=== PATIENT | female | born 1985 | race Caucasian/White ===

== ENCOUNTER 2016-11-03 16:44 | Emergency (ER) | payer OTHER ==
[~2016-11-03] VITALS: Ht 154.9 cm; Wt 97.4 kg
[~2016-11-03 16:44] MED LIST: ALBUAER2 INH
[2016-11-03 16:51] VITALS: TEMP 36.5; Ht 154.9 cm; Wt 97.4 kg
[2016-11-03 16:54] VITALS: O2SAT 99
--- NOTE | 2016-11-03 17:13 | EMERGENCY ROOM VISIT NOTE ---
History First contact with patient: 16:56 Chief Complaint: SORETHROAT Stated Complaint: SWOLLEN GLANDS, HEADACHE, HOT/COLD, EARACHE History of Present Illness The patient is a 31 year old female who presents to the Emergency Room via private vehicle accompanied by male with complaints of "swollen glands, headache , hot/cold, earache". The patient states that 1-1/2 months ago she began with right tonsillar pain radiated into the right anterior neck into the right ear. She states that she was given amoxicillin and told it was her sinuses. She states that she has not had any relief, and is noticed small stones in the right tonsil. She states that they are enlarging. She states that one fell out earlier today and she swallowed it. She notes that there is pain with swallowing and in the right cheek region. She also feels like there is fluid in her right ear. She also notes a headache on the right side. She denies this being the worse headache of her life, chest pain, shortness of breath, abdominal pain. Review of Systems A complete 6-point Review of Systems was discussed with the patient, with pertinent positives and negatives listed in the History of Present Illness. All remaining Review of Systems questions can be considered negative unless otherwise specified. Past Medical/Surgical History Medical Problems: (1) Anxiety (2) Anxiety disorder (3) Asthma (4) ASTHMA, UNSPECIFIED (5) Depression (6) Depressive disorder (7) (8) Previous Tracheostomy Surgical Problems: (1) Cholecystectomy Family History Diabetes mellitus FHx: cancer FHx: heart disease Hypertension Social History Smoking Status: Current Every Day Smoker Alcohol Use: occasionally Drug Use: none Marital Status: single Housing Status: lives with family Occupation Status: unemployed Current/Historical Medications Scheduled Amoxicillin/Clavulanate Potas (Augmentin 400MG/5ML), 10 ML PO BID Bupropion (Wellbutrin Sr), 200 MG PO DAILY Escitalopram Oxalate (Lexapro), 5 MG PO DAILY Prednisolone (Prelone 15MG/5ML), 10 ML PO DIRECTED Topiramate (Topamax), 200 MG PO BID Scheduled PRN Albuterol Hfa (Ventolin Hfa), 1 PUFFS INH QID PRN for Shortness of Breath Tnpnrel-Zqebpwiqmxplc-Ncaibcvq (Excedrin Migraine), 1 TAB PO DIRECTED PRN for Headache Oxycodone/Acetaminophen 5MG/325MG (Percocet 5MG/325MG), 1 TAB PO Q4H PRN for Pain Allergies Coded Allergies: Latex1 -Allergic Contact Dermititis (Verified Allergy, Mild, RASH, 11/03/16) Promethazine (Verified Adverse Reaction, Intermediate, ANXIOUS, IRRITABILITY, 11/03/16) Physical Exam Vital Signs Date Time Temp Pulse Resp B/P Pulse Ox O2 Delivery O2 Flow Rate FiO2 11/03/16 17:28 80 20 122/76 11/03/16 16:54 99 Room Air 11/03/16 16:51 36.5 84 20 120/83 99 Room Air Physical Exam VITAL SIGNS - Vital signs and nursing notes were reviewed. GENERAL -31-year-old female appearing her stated age who is in no acute distress. She is nontoxic in appearance. Upon my entrance she is holding the right side of her jaw/cheek. Communicates well with provider and answers questions appropriately. SKIN - Without rashes. No petechial rashes. HEAD - NC/AT. There is tenderness palpation overlying the right anterior cervical lymph node region/tonsillar region. EYES - Sclera anicteric. Palpebral conjunctiva pink and moist with no injection noted. EARS - No deformities of external structures noted on gross examination bilaterally. There is no erythema of the TMs, but there is fluid within the right eardrum. NOSE - Midline and without cyanosis. No epistaxis or purulent drainage noted. Septum midline without deviation or septal hematoma noted. MOUTH/OROPHARYNX - Without perioral cyanosis. Buccal mucosa pink and moist and without leukoplakia. Tongue midline with equal elevation of palate bilaterally. There is 1+ tonsillar hypertrophy with erythema on the right. Fair dentition noted. NECK - Neck with FROM. Supple to palpation. Anterior cervical lymphadenopathy noted right greater than left. No nuchal rigidity. No meningismus or signs of encephalitis. LUNGS - Chest wall symmetric without accessory muscle use, intercostals retractions, or central cyanosis. Normal vesicular breath sounds CTA B/L. No wheezes, rales, or rhonchi appreciated. CARDIAC - RRR with S1/S2. No murmur, rubs, or gallops appreciated. Medical Decision & Procedures Laboratory Results Test 11/03/16 17:08 Bedside Urine Test NEG (NEG) Medications Administered Medications (Trade) Dose Ordered Sig/Minh Route Start Time Stop Time Status Last Admin Dose Admin Oxycodone/ Acetaminophen (Percocet 5-325mg Tab) 1 tab NOW STAT PO 11/03/16 17:42 11/03/16 17:43 DC 11/03/16 17:48 1 TAB Medical Decision Patient was seen and evaluated as above. It appears that the patient has a serous otitis media of the right with potential eustachian tube dysfunction and tonsillitis. At this time I'll defer rapid strep testing, and treat the patient for pharyngitis, and for the eustachian tube dysfunction/serous otitis media. She will be given Augmentin suspension as well as Orapred. The patient notes that she cannot tolerate pills well. I do be this is appropriate to provide her with a liquid suspension. This was sent to her pharmacy. She asked for a potential decongestant recommendation, therefore I recommended to her Sudafed behind the pharmacy counter. I do believe this is also appropriate. She then noted that the pain was worsening, and requested something for pain. At this point I do believe that one Percocet tablet is reasonable I gave this to the patient as well as a short term supply was sent to her pharmacy until the antibiotics and decongestants can take effect. No red flags were identified in the [place] drug monitoring system. She will be referred to an field research assistant, in which she is to call the number first thing tomorrow morning to schedule follow-up. She is to return with worsening. She was educated upon worrisome symptoms which to return, angina today's findings, had questions prior to discharge, and was discharged home in good condition. In the evaluation and treatment of this patient the following differential diagnoses were entertained: Viral pharyngitis, bacterial pharyngitis, eustachian tube dysfunction, tonsilliths, serous otitis media, among others. There is no evidence of meningitis, encephalitis or life-threatening illness at this time. Impression Primary Impression: Sore throat Additional Impression: Acute serous otitis media of right ear Departure Information Dispostion Home / Self-Care Condition GOOD Prescriptions Oxycodone/Acetaminophen 5MG/325MG (PERCOCET 5MG/325MG) Tab 1 TAB PO Q4H Y for Pain, #5 TAB For Initial Treatment Prov: Eddie Garcia, PAYasmani 11/03/16 Prednisolone (PRELONE 15MG/5ML) 15 Mg/5 Ml Syrp 10 ML PO DIRECTED for 9 Days, #130 ML 10ml BID x 5 days, then 5mL BID x 2 days, then 5ml daily x 2 days. Prov: Eddie Garcia PA-C 11/03/16 Amoxicillin/Clavulanate Potas (AUGMENTIN 400MG/5ML) 400 Mg/5 Ml Susp 10 ML PO BID for 10 Days, #200 ML Prov: Eddie Garcia PA-C 11/03/16 Referrals No Doctor, Assigned (PCP) Brianna Sparrow M.D. Patient Instructions My [facility] Additional Instructions You were seen in the emergency department for your sore throat. You were prescribed Augmentin to be taken Twice daily. This is an antibiotic. All antibiotics have the potential to cause diarrhea. Stop this medication and contact a medical provider if you were to develop any significant adverse side effects including: wheezing, shortness of breath, passing out, vomiting, or a diffuse rash. Always take antibiotics as directed and COMPLETE the ENTIRE course regardless of the improvement of your symptoms. You have been prescribed percocet for temporary relief of pain. This is a narcotic medication making illegal for you to drive or operate machinery with this in her system. Please do not take this with Tylenol. This is to help until the antibiotics take effect. You have been prescribed orapred to help decrease inflammation. Please take as directed. Please take with food. For congestion please go to the pharmacy and request ohyx-quc-qjkozua Sudafed which is actually behind the pharmacist counter. You have been provided the number for an ear nose throat specialist in which she would follow-up for. Dr. Sparrow. Please call their office first thing tomorrow morning. For pain and fever control, you can use the following jhys-vbx-fkqexth medicines (if >12 yo): - Regular strength (325mg/tab) Tylenol (acetaminophen) 2 tabs every 4-6 hours as needed. Do not exceed 12 tablets in a 24 hour period. Avoid taking more than 4 grams (4000 mg) of Tylenol per day. This includes any other sources of acetaminophen you may take on a regular basis. - Regular strength (200 mg/tab) Advil (ibuprofen) 1-2 tabs every 4-6 hours as needed. Do not exceed a dose of 3200 mg per day. - For best results, alternate dosing of Tylenol and Advil. In addition to your prescribed medications, you can also use the following home remedies: - Warm salt-water gargles 3 times per day can soothe your throat and help to fight infection. - Warm tea with honey can soothe your throat. Return to the emergency department if your symptoms persist or worsen over the next 2-3 days despite treatment course outlined above. Return to the emergency department if you develop the following symptoms of: inability to swallow solids , liquids, or drool; excessive wheezing or inability to catch your breath; or intractable fever or pain. Follow up with your primary care provider in 2-3 days from today's emergency department visit. Please return to emergency department with any new/concerning symptoms. Problem Qualifiers
[2016-11-03] MEDS ORDERED: PRLUDL5 PO (17:22)
[2016-11-03] MEDS ORDERED: AGMUDL4005 PO (17:22)
[2016-11-03 17:28] VITALS: BP 122/76; PULSE 80
--- NOTE | 2016-11-03 17:41 | EMERGENCY ROOM VISIT NOTE ---
ED Visit Note First contact with patient: 16:56 The patient was seen and examined with Eddie Garcia PA-C. I agree with the history, physical and findings. Please see the note for disposition and details.
[2016-11-03] MEDS ORDERED: OXYCODONE/ACETAMINOPHEN 5-325 TAB PO STA (17:42)
[2016-11-03] MEDS ORDERED: OXYC-57 PO (17:44)
[2016-11-08] MEDS ORDERED: ASPI-390 PO (13:54)
[2016-11-08] MEDS ORDERED: VNTHFA/IN INH (17:16)
[2016-11-08] MEDS ORDERED: ESCI1TAB6 PO (17:16)
[2016-11-08] MEDS ORDERED: TOPI200T14 PO (17:16)
[2016-11-08] MEDS ORDERED: BUPR200T2 PO (17:16)
[2016-12-08] MEDS ORDERED: ESCI1TAB6 PO (13:03)
[2016-12-08] MEDS ORDERED: BUPR200T2 PO (13:03)
[2016-12-08] MEDS ORDERED: TOPI100T20 PO (13:03)
[2016-12-09] MEDS ORDERED: AMOX250C PO (10:50)
[2016-12-09] MEDS ORDERED: OXYC-57 PO (13:23)
== END 2016-11-03 17:51 | disposition home or self-care (01) ==
LOC: C.EDB 16:45 → C.EDD 17:51
DX: J02.9 Acute pharyngitis, unspecified (principal); H65.01 Acute serous otitis media, right ear; R51 Headache; R59.0 Localized enlarged lymph nodes; F17.210 Nicotine dependence, cigarettes, uncomplicated

== ENCOUNTER 2016-11-08 19:17 | Emergency (ER) | payer OTHER ==
[~2016-11-08] VITALS: Ht 154.9 cm; Wt 96.0 kg
[~2016-11-08 19:17] MED LIST changes: +AGMUDL4005 PO; -ALBUAER2 INH; +ASPI-390 PO; +BUPR200T2 PO; +ESCI1TAB6 PO; +OXYC-57 PO; +PRLUDL5 PO; +TOPI200T14 PO; +VNTHFA/IN INH
[2016-11-08 19:24] VITALS: TEMP 36.4; Ht 154.9 cm; Wt 96.0 kg
[2016-11-08] MEDS ORDERED: OXYCODONE HCL IR 5 MG TAB (IMMEDIATE RELEASE) PO STA (19:39)
--- NOTE | 2016-11-08 20:05 | DIAGNOSTIC IMAGING REPORT ---
KNEE 1 OR 2 VIEWS ROUTINE CLINICAL HISTORY: L knee pain s/p patellar subluxation pain COMPARISON: None. DISCUSSION: The bones and joint spaces appear intact. There is no evidence of fracture, dislocation or bony disease. There is no evidence for soft tissue swelling. IMPRESSION: Negative study. Electronically signed by: Van Jonas M.D. 11/08/2016 8:03 PM Dictated Date/Time: 11/08/2016 8:03 PM
[2016-11-08] MEDS ORDERED: OXYC1TAB3 PO (20:36)
--- NOTE | 2016-11-08 20:39 | EMERGENCY ROOM VISIT NOTE ---
History First contact with patient: 19:32 Chief Complaint: KNEEPAIN Stated Complaint: LEFT KNEE INJURY History of Present Illness The patient is a 31 year old female who presents to the Emergency Room with complaints of left knee pain over the past 3 days. The patient reports that her knee initially popped while she and her were having sex. The patient reports that the following day, she was chasing her children up the steps and it popped again. It popped again today while walking. She was seen at an urgent care center this evening, and was told that it could be a meniscus tear or anterior cruciate ligament injury. She was provided a knee brace that the patient reports does not fit. She complains of a burning sensation on the front of the knee. The patient reports that she did dislocate her patella several years ago while wrestling with her ex-. She currently rates her discomfort a 6 out of 10. Her pain is worsened when walking up and down steps or bending her knee. She denies any instability, clicking or locking with ambulation. Review of Systems 10 system review was performed and was negative except for pertinent positives and negatives as indicated in history of present illness Past Medical/Surgical History Medical Problems: (1) Anxiety (2) Anxiety disorder (3) Asthma (4) ASTHMA, UNSPECIFIED (5) Depression (6) Depressive disorder (7) (8) Previous Tracheostomy Surgical Problems: (1) Cholecystectomy Family History Diabetes mellitus FHx: cancer FHx: heart disease Hypertension Social History Smoking Status: Current Every Day Smoker Alcohol Use: occasionally Drug Use: none Marital Status: single Housing Status: lives with family Occupation Status: unemployed Current/Historical Medications Scheduled Amoxicillin/Clavulanate Potas (Augmentin 400MG/5ML), 10 ML PO BID Bupropion (Wellbutrin Sr), 200 MG PO DAILY Escitalopram Oxalate (Lexapro), 5 MG PO DAILY Prednisolone (Prelone 15MG/5ML), 10 ML PO DIRECTED Topiramate (Topamax), 200 MG PO BID Scheduled PRN Albuterol Hfa (Ventolin Hfa), 2 PUFFS INH QID PRN for Shortness of Breath Udtsfab-Rksowtqwwbofa-Qnzzkspy (Excedrin Migraine), 1 TAB PO UD PRN for Migraine Oxycodone Ir (Roxicodone Ir), 1-2 TAB PO Q4H PRN for Pain Allergies Coded Allergies: Latex1 -Allergic Contact Dermititis (Verified Allergy, Mild, RASH, 11/03/16) Promethazine (Verified Adverse Reaction, Intermediate, ANXIOUS, IRRITABILITY, 11/03/16) Physical Exam Vital Signs Date Time Temp Pulse Resp B/P Pulse Ox O2 Delivery O2 Flow Rate FiO2 11/08/16 19:24 36.4 85 18 133/84 94 Room Air Physical Exam CONSTITUTIONAL: Healthy and well nourished. Alert and oriented X 3 with positive affect. She does not appear in any acute distress. HEENT: Normocephalic, atraumatic. Pupils equal, round and reactive. NECK: Full active range of motion without discomfort. RESPIRATORY: Clear to auscultation bilaterally with no wheezing, crackles, rhonchi or stridor. CARDIOVASCULAR: Regular rate and rhythm with no murmurs, rubs or gallops. MUSCULOSKELETAL: Examination of the left knee shows anterior edema without any bogginess of the pre-patella bursa. She has tenderness to palpation about the entire patella. No focal tenderness to the quadriceps or patellar tendons. The patient is able straight leg raise. She has mild discomfort to the radial joint line. Collateral ligaments are intact. The patient refuses to flex and extend the knee because of discomfort. She has mild tenderness to the hamstrings. No popliteal masses or tenderness to palpation through the gastrocnemius. Pedal pulses are intact. INTEGUMENTARY: No rash or other significant dermatologic conditions noted. NEUROLOGIC: Left lower extremity is sensory intact. Medical Decision & Procedures ER Provider Diagnostic Interpretation: My interpretation of left knee x-rays does not show any acute fractures, dislocations, subluxations or joint effusion. Radiologist report is as follows: KNEE 1 OR 2 VIEWS ROUTINE CLINICAL HISTORY: L knee pain s/p patellar subluxation pain COMPARISON: None. DISCUSSION: The bones and joint spaces appear intact. There is no evidence of fracture, dislocation or bony disease. There is no evidence for soft tissue swelling. IMPRESSION: Negative study. Medications Administered Medications (Trade) Dose Ordered Sig/Minh Route Start Time Stop Time Status Last Admin Dose Admin Oxycodone HCl (Roxicodone Immediate Rel Tab) 5 mg NOW STAT PO 11/08/16 19:39 11/08/16 19:41 DC 11/08/16 19:44 5 MG ED Course Patient history and physical exam were performed. Nurse's notes were reviewed. Vital signs were reviewed and normal. The patient was administered OxyIR 5 mg for pain. Denies pack was also applied. X-rays of the left knee were normal. Any immobilizer and crutches were applied. The patient was encouraged to continue intermittently apply ice to the knee. Ibuprofen and Tylenol in alternating fashion for baseline pain relief. The patient received a home pack and prescription for OxyIR as needed for breakthrough pain. No drinking or driving while taking OxyIR. The patient was encouraged to follow-up with [facility] for reevaluation and management. The patient voiced understanding of all discharge instructions, was happy with plan of care, and rated her pain a 7 out of 10 at the conclusion of my exam. Medical Decision Impression Primary Impression: Left anterior knee pain Departure Information Prescriptions Oxycodone Ir (Roxicodone Ir) 5 Mg Tab 1-2 TAB PO Q4H Y for Pain, #15 TAB For Initial Treatment Prov: Mukesh Villar PA 11/08/16 Referrals No Doctor, Assigned (PCP) Patient Instructions [facility]
[2016-11-08] MEDS ORDERED: OXYCODONE IR HOME PACK PO ONE (20:45)
[2016-11-08 21:07] VITALS: BP 129/82; PULSE 82; O2SAT 97
[2016-12-08] MEDS ORDERED: TOPI100T20 PO (13:03)
[2016-12-08] MEDS ORDERED: ESCI1TAB6 PO (13:03)
[2016-12-08] MEDS ORDERED: BUPR200T2 PO (13:03)
[2016-12-09] MEDS ORDERED: AMOX250C PO (10:50)
[2016-12-09] MEDS ORDERED: OXYC-57 PO (13:23)
== END 2016-11-08 21:09 | disposition home or self-care (01) ==
LOC: C.EDB 19:18 → C.EDD 21:09
DX: M25.562 Pain in left knee (principal); J45.909 Unspecified asthma, uncomplicated; F41.8 Other specified anxiety disorders; Z83.3 Family history of diabetes mellitus; Z82.49 Family history of ischemic heart disease and other diseases of the circulatory system; F17.200 Nicotine dependence, unspecified, uncomplicated

== ENCOUNTER 2016-11-29 20:46 | Emergency (ER) | payer OTHER ==
[~2016-11-29] VITALS: Ht 154.9 cm; Wt 96.6 kg
[~2016-11-29 20:46] MED LIST changes: -AGMUDL4005 PO; -OXYC-57 PO; +OXYC1TAB3 PO; -PRLUDL5 PO
[2016-11-29 21:15] VITALS: TEMP 37.2; Ht 154.9 cm; Wt 96.6 kg
--- NOTE | 2016-11-29 22:47 | EMERGENCY ROOM VISIT NOTE ---
ED Visit Note First contact with patient: 21:55 31-year-old female with pain behind her left ear was fully evaluated by Eddie Garcia PA-C. Please see his note. I also independently evaluated the patient. CT imaging was obtained. IMPRESSION: Sinusitis
[2016-11-29] MEDS ORDERED: OXYCODONE/ACETAMINOPHEN 5-325 TAB PO STA (23:01)
--- NOTE | 2016-11-29 23:07 | DIAGNOSTIC IMAGING REPORT ---
CT SCAN OF THE TEMPORAL BONES WITHOUT IV CONTRAST CLINICAL HISTORY: Left mastoid pain. COMPARISON STUDY: CT scan of the brain dated 04/17/2016. CT scan of the paranasal sinuses dated 03/12/2010. TECHNIQUE: High-resolution CT scan of the temporal bones is performed. Images reviewed in the axial, sagittal, coronal planes. IV contrast was not administered for this examination. CT DOSE: 579.75 mGy.cm FINDINGS: The skeletal structures are well mineralized. There is no evidence of temporal bone fracture. The mastoid air cells are well pneumatized. There is no evidence of dehiscence of the tegmen tympany. The scutum is sharp bilaterally. The middle ear structures are within normal limits. There is no evidence of otosclerosis. The ossicles are within normal limits. There is no evidence of cholesteatoma. The external auditory canals are clear. There is moderate to severe pansinusitis. The bony orbits are intact as visualized. The calvarium appears intact. Imaged brain parenchyma at the skull base is within normal limits. There are prominent intraparotid lymph nodes identified on the left. IMPRESSION: 1. Unremarkable CT scan of the temporal bones. 2. The mastoid air cells are clear. 3. Pansinusitis. 4. Prominent left intraparotid lymph nodes may be on a reactive basis. Clinical correlation will be required. Electronically signed by: Justin Finley M.D. 11/29/2016 11:06 PM Dictated Date/Time: 11/29/2016 10:40 PM
[2016-11-29] MEDS ORDERED: AMOXICIL/CLAVU 875MG HOME PACK PO STA (23:31)
[2016-11-29] MEDS ORDERED: PERCOCET HOME PACK PO STA (23:31)
[2016-11-29] MEDS ORDERED: AMOX875T PO (23:44)
[2016-11-29] MEDS ORDERED: OXYC-57 PO (23:44)
--- NOTE | 2016-11-29 23:46 | EMERGENCY ROOM VISIT NOTE ---
History First contact with patient: 21:55 Chief Complaint: SINUS CONGESTION/PRESSURE Stated Complaint: LEFT PAIN BEHIND EAR, FEVERISH, SINUS DRAINAGE Nursing Triage Summary: pt states left eustacion tube is painful History of Present Illness The patient is a 31 year old female who presents to the Emergency Room via private vehicle with complaints of "left pain behind the ear, fevers, sinus drainage". The patient states that 2 days ago she began to notice what felt like a bubble behind the left ear, and radiated downwards into her left neck. She notes pain in this region, particularly over the mastoid. She states that she presses this region she can feel mucus draining down and were sinuses and throat. She rates the left mastoid pain as a 10/10. There is associated sinus congestion. She states she feels as though she has a head cold. She denies any chills, chest pain, shortness of breath. She states she feels fevers. She notes that she was seen here approximately 1 month ago and had taken amoxicillin and had done well but her symptoms are returning. She is an appointment tomorrow with an ENT specialist. Review of Systems A complete 10-point Review of Systems was discussed with the patient, with pertinent positives and negatives listed in the History of Present Illness. All remaining Review of Systems questions can be considered negative unless otherwise specified. Past Medical/Surgical History Medical Problems: (1) Anxiety (2) Anxiety disorder (3) Asthma (4) ASTHMA, UNSPECIFIED (5) Depression (6) Depressive disorder (7) (8) Previous Tracheostomy Surgical Problems: (1) Cholecystectomy Family History Diabetes mellitus FHx: cancer FHx: heart disease Hypertension Social History Smoking Status: Current Every Day Smoker Alcohol Use: occasionally Drug Use: none Marital Status: single Housing Status: lives with family Occupation Status: unemployed Current/Historical Medications Scheduled Amoxicillin & Pot Clavulanate (Augmentin 875-125 mg), 1 TAB PO BID Bupropion (Wellbutrin Sr), 200 MG PO DAILY Escitalopram Oxalate (Lexapro), 5 MG PO DAILY Topiramate (Topamax), 200 MG PO BID Scheduled PRN Albuterol Hfa (Ventolin Hfa), 2 PUFFS INH QID PRN for Shortness of Breath Rikudiu-Bwvxjemvilbrt-Yajdeimv (Excedrin Migraine), 1 TAB PO UD PRN for Migraine Oxycodone Ir (Roxicodone Ir), 1-2 TAB PO Q4H PRN for Pain Oxycodone/Acetaminophen 5MG/325MG (Percocet 5MG/325MG), 1-2 TABS PO Q6 PRN for Pain Allergies Coded Allergies: Latex1 -Allergic Contact Dermititis (Verified Allergy, Mild, RASH, 11/03/16) Promethazine (Verified Adverse Reaction, Intermediate, ANXIOUS, IRRITABILITY, 11/03/16) Physical Exam Vital Signs Date Time Temp Pulse Resp B/P Pulse Ox O2 Delivery O2 Flow Rate FiO2 11/30/16 00:19 82 20 133/81 99 Room Air 11/29/16 21:15 37.2 96 18 156/96 97 Room Air Physical Exam VITAL SIGNS - Vital signs and nursing notes were reviewed. Patient is afebrile , hypertensive at 156/96, non-tachycardic and is saturating well on room air 97% . GENERAL -31-year-old female appearing her stated age who is in no acute distress. Communicates well with provider and answers questions appropriately. SKIN - Without rashes. No petechial rashes. HEAD - NC/AT. No evidence of trauma. EYES - PERRL with EOMI bilaterally. Sclera anicteric. Palpebral conjunctiva pink and moist with no injection noted. EARS - No deformities of external structures noted on gross examination bilaterally. No pain elicited with palpation of the tragus bilaterally. External auditory canals without discharge or otorrhea. There is tenderness to palpation overlying the left mastoid. Tympanic membranes pearly dotson with retraction of the left serous fluid behind. Handle of malleus, umbo, cone of light, pars tensa/flaccid all easily visualized. NOSE - Midline and without cyanosis. No epistaxis or purulent drainage noted. Septum midline without deviation or septal hematoma noted. MOUTH/OROPHARYNX - Without perioral cyanosis. Buccal mucosa pink and moist and without leukoplakia. Tongue midline with equal elevation of palate bilaterally. No tonsillar hypertrophy, erythema, or exudates noted. There dentition noted. NECK - Neck with FROM. Supple to palpation. There is left parotid region lymphadenopathy noted. No nuchal rigidity. No evidence of meningitis. LUNGS - Chest wall symmetric without accessory muscle use, intercostals retractions, or central cyanosis. Normal vesicular breath sounds CTA B/L. No wheezes, rales, or rhonchi appreciated. CARDIAC - RRR with S1/S2. No murmur, rubs, or gallops appreciated. Medical Decision & Procedures ER Provider Diagnostic Interpretation: CT SCAN OF THE TEMPORAL BONES WITHOUT IV CONTRAST CLINICAL HISTORY: Left mastoid pain. COMPARISON STUDY: CT scan of the brain dated 04/17/2016. CT scan of the paranasal sinuses dated 03/12/2010. TECHNIQUE: High-resolution CT scan of the temporal bones is performed. Images reviewed in the axial, sagittal, coronal planes. IV contrast was not administered for this examination. CT DOSE: 579.75 mGy.cm FINDINGS: The skeletal structures are well mineralized. There is no evidence of temporal bone fracture. The mastoid air cells are well pneumatized. There is no evidence of dehiscence of the tegmen tympany. The scutum is sharp bilaterally. The middle ear structures are within normal limits. There is no evidence of otosclerosis. The ossicles are within normal limits. There is no evidence of cholesteatoma. The external auditory canals are clear. There is moderate to severe pansinusitis. The bony orbits are intact as visualized. The calvarium appears intact. Imaged brain parenchyma at the skull base is within normal limits. There are prominent intraparotid lymph nodes identified on the left. IMPRESSION: 1. Unremarkable CT scan of the temporal bones. 2. The mastoid air cells are clear. 3. Pansinusitis. 4. Prominent left intraparotid lymph nodes may be on a reactive basis. Clinical correlation will be required. Electronically signed by: Justin Finley M.D. 11/29/2016 11:06 PM Dictated Date/Time: 11/29/2016 10:40 PM Laboratory Results Test 11/29/16 22:25 Medications Administered Medications (Trade) Dose Ordered Sig/Minh Route Start Time Stop Time Status Last Admin Dose Admin Oxycodone/ Acetaminophen (Percocet 5-325mg Tab) 1 tab NOW STAT PO 11/29/16 23:01 11/29/16 23:03 DC 11/29/16 23:33 1 TAB Oxycodone/ Acetaminophen (Percocet 5/ 325MG Home Pack) 1 homepack UD STAT PO 11/29/16 23:31 11/29/16 23:33 DC 11/30/16 00:18 1 HOMEPACK Amoxicillin/ Clavulanate Potassium (Augmentin 875MG Home Pack) 1 [facility] UD STAT PO 11/29/16 23:31 11/29/16 23:33 DC 11/30/16 00:18 1 [facility] Medical Decision Patient was seen and evaluated as above. After obtaining a thorough history and physical examination was apparent the patient was experiencing significant left mastoid pain. I personally treated this patient on a previous visit for similar symptoms. She appears to be experiencing chronic sinus related ailments. She is to follow-up with Dr. Sparrow tomorrow, ENT surgeon. She states she is here because of the pain. CT scan was obtained, but first a urine screen was obtained. This was found any negative. CT scan was obtained of the mastoids. No evidence of mastoiditis. There is a small lymph node enlargement of the left parotid. This is palpable on exam. I do not suspect mumps. I suspect this is likely secondary to her ear pain and sinusitis. There is pansinusitis noted. She'll be treated with Augmentin oral tablets at this time, and is to follow up with an ear nose and throat doctor. She will did request something for her pain therefore was given 1 Percocet tablet. This did help with the pain. She was then provided a short-term prescription for this medication and is to follow-up for definitive management with the ear nose and throat doctor tomorrow. I do not suspect any emergent cause of her pain at this time. She was educated upon worrisome symptoms which to return, had questions prior to discharge and was discharged home in good condition. Prior to discharge she was also evaluated by my attending. It is important note the patient presents tearful, stating that she drooled symptoms she is experiencing and is fearful she may have cancer. She states that she does have a history of anxiety, and smokes. I reassured her that although I cannot 100% tell her she does not have cancer, I informed her that at this time it is very unlikely based upon her symptoms that she has cancer. Patient is a follow-up with her family doctor regarding the enlarged lymph node in case it may persist. In evaluation treatment this patient the following differential diagnoses were entertained: Sinusitis, mastoiditis, otitis media, mumps, among others. [place] Drug Monitoring Program Search Results: patient reviewed within database, no issues identified Impression Primary Impression: Acute recurrent sinusitis Departure Information Dispostion Home / Self-Care Condition GOOD Prescriptions Oxycodone/Acetaminophen 5MG/325MG (PERCOCET 5MG/325MG) Tab 1-2 TABS PO Q6 Y for Pain, #10 TAB For Initial Treatment Prov: Eddie Garcia PA-C 11/29/16 Amoxicillin & Pot Clavulanate (Augmentin 875-125 mg) 1 Tab Tab 1 TAB PO BID for 9 Days, #18 TAB Prov: Eddie Garcia PA-C 11/29/16 Referrals No Doctor, Assigned (PCP) Brianna Sparrow M.D. Patient Instructions My [facility] Additional Instructions You've been seen in the emergency department for your left ear/mastoid pain. CT scan does not reveal mastoiditis. CT scan does show a left parotid lymph node enlargement as well as sinusitis. You've been prescribed Augmentin, this is one tablet twice daily for 10 days. You also prescribe Percocet for your left ear/mastoid pain. This is a narcotic medication making illegal for you to drive or operate machinery. Do not take the Percocet with Tylenol. You may take ibuprofen according to the package insert. Please keep your appointment with the EAR NOSE THROAT doctor tomorrow. Please return to the emergency department with any new/concerning symptoms.
[2016-11-30 00:19] VITALS: BP 133/81; PULSE 82; O2SAT 99
[2016-12-08] MEDS ORDERED: TOPI100T20 PO (13:03)
[2016-12-08] MEDS ORDERED: ESCI1TAB6 PO (13:03)
[2016-12-08] MEDS ORDERED: BUPR200T2 PO (13:03)
[2016-12-09] MEDS ORDERED: AMOX250C PO (10:50)
[2016-12-09] MEDS ORDERED: OXYC-57 PO (13:23)
== END 2016-11-30 00:23 | disposition home or self-care (01) ==
LOC: C.EDB 20:48 → C.EDD 11-30 00:23
DX: J01.91 Acute recurrent sinusitis, unspecified (principal); F41.9 Anxiety disorder, unspecified; F32.9 Major depressive disorder, single episode, unspecified; J45.909 Unspecified asthma, uncomplicated; Z79.899 Other long term (current) drug therapy; Z82.49 Family history of ischemic heart disease and other diseases of the circulatory system; Z83.3 Family history of diabetes mellitus; F17.200 Nicotine dependence, unspecified, uncomplicated

== ENCOUNTER → 2016-12-09 | Day surgery (SDC) | payer OTHER ==
--- NOTE | 2016-12-08 09:59 | History and Physical: Surg Cnt ---
History & Physical Date December 08, 2016. Chief Complaint sinus infections History of Present Illness The patient is a 31 year old female with complaints of chronic sinusitis since at least 2009, failed medical Rx by her FMD, aggravating asthma Past Medical/Surgical History Medical Problems: (1) Anxiety (2) Anxiety disorder (3) Asthma (4) ASTHMA, UNSPECIFIED (5) Depression (6) Depressive disorder (7) (8) Previous Tracheostomy Surgical Problems: (1) Cholecystectomy Additional History Hepatic Disease: No Endocrine Disorder: No Kidney Disease: No Hypertension: No Heart Disease: No Bleeding Tendencies: No Infectious Diseases: No Other: asthma Allergies Coded Allergies: Latex1 -Allergic Contact Dermititis (Verified Allergy, Mild, RASH, 11/03/16) Promethazine (Verified Adverse Reaction, Intermediate, ANXIOUS, IRRITABILITY, 11/03/16) Home Medications Scheduled Amoxicillin & Pot Clavulanate (Augmentin 875-125 mg), 1 TAB PO BID Bupropion (Wellbutrin Sr), 200 MG PO DAILY Escitalopram Oxalate (Lexapro), 5 MG PO DAILY Topiramate (Topamax), 200 MG PO BID Scheduled PRN Albuterol Hfa (Ventolin Hfa), 2 PUFFS INH QID PRN for Shortness of Breath Knxipqx-Lgmuevamuyrxm-Eertkdmd (Excedrin Migraine), 1 TAB PO UD PRN for Migraine Oxycodone Ir (Roxicodone Ir), 1-2 TAB PO Q4H PRN for Pain Oxycodone/Acetaminophen 5MG/325MG (Percocet 5MG/325MG), 1-2 TABS PO Q6 PRN for Pain Physical Examination Skin: warm/dry, no rash Eyes: normal inspection, EOMI, sclerae normal Head: normocephalic, atraumatic Neck: supple, no adenopathy, trachea midline Respiratory/Chest: lungs clear, normal breath sounds, no respiratory distress Cardiovascular: regular rate, rhythm, no edema, no murmur Abdomen / GI: normal bowel sounds, non tender Back: normal inspection Extremities: normal inspection, normal range of motion Neurologic/Psych: no motor/sensory deficits, alert, normal reflexes, oriented x 3 Diagnosis chronic sinusitis Plan of Treatment endoscopic sinus surgery
[2016-12-08 13:03] VITALS: Ht 154.9 cm; Wt 97.7 kg
[~2016-12-09] VITALS: Ht 154.9 cm; Wt 97.7 kg
[~2016-12-09] MED LIST changes: +AMOX250C PO; +AMOX875T PO; -ASPI-390 PO; +ATROPINE SULFATE 0.1 MG/ML 5ML SYR IV PRN; +BACITRACIN OINT 15 GM TUBE ONE; +CEFAZOLIN 2000 MG/60 ML D5W IV SCH; +DEXAMETHASONE SOD INJ 4 MG/ML VIAL ONE; +EpHEDrine SULFATE 50MG/5ML SYR ONE; +EpHEDrine SULFATE INJ 50 MG/ML AMP IV PRN; +EpINEphrine INJ 1MG/ML AMP 1 MG/ML AMP ONE; +FENTANYL CITRATE INJ 50 MCG/1 ML 2 ML VIAL IV PRN; +FENTANYL CITRATE INJ 50 MCG/1 ML 2 ML VIAL ONE; +FLUMAZENIL 0.1 MG/1 ML 10 ML VIAL IV PRN; +HYDR1CAP85 PO; +HYDROmorphone INJ 2 MG/ML SYR/VIAL IV PRN; +IBUP-1050 PO; +LABETALOL HCL IV 5 MG/ML 20ML IV PRN; +LACTATED RINGER'S 1000ML 1,000 ML IV SCH; +LIDO 2%/EPINEPHRINE 1:100000 20 ML VIAL INFIL ONE; +LIDOCAINE 4% MPF SOAK 5 ML = 1 DOSE TOP ONE; +LIDOCAINE HCL 2% 2 ML VIAL (20MG/ML) ONE; +LORA-741 PO; +MEPERIDINE HCL 25 MG/ML CARP IV PRN; +MIDAZOLAM HCL 1 MG/ML 2ML VIAL ONE; +NALOXONE HCL 0.4 MG/1 ML VIAL/CARP IV PRN; +NITR1CAP16 PO; +NYSTCRE32 TOP; +OMEP40CA41 PO; +ONDA4TAB10 SL; +ONDANSETRON INJ 2 MG/ML 2 ML VIAL IV PRN; +ONDANSETRON INJ 2 MG/ML 2 ML VIAL ONE; +OXYC-57 PO; -OXYC1TAB3 PO; +OXYCODONE/ACETAMINOPHEN 5-325 TAB PO PRN; +OXYMETAZOLINE HCL 0.05% NA SPR 15 ML BTL SCH; +PHENYLEPHRINE 100MCG/ML 5ML SYR IV PRN; +PROMETHAZINE HCL INJ 12.5 MG in SODIUM CHLORIDE 0.9% 50ML 50 ML IV STA; +PROMETHAZINE HCL INJ 25 MG/ML 1 ML VIAL ONE; +PROPOFOL IV EMULSION 10 MG/ML 20 ML VIAL IV ONE; +SCOPOLAMINE 1.5 MG TDSY TD ONE; +SODIUM CHLORIDE 0.9% 1000ML 1,000 ML IV SCH; +TOPI100T20 PO; -TOPI200T14 PO
--- NOTE | 2016-12-09 13:25 | Discharge Instructions-SurgCtr ---
Discharge Instructions Date of Service December 09, 2016. Visit Reason for Visit: Chronic Sinusitis Discharge Discharge Diagnosis / Problem: same Discharge Goals Goal(s): Improve disease control Activity Recommendations Activity Limitations: resume your previous activity Anesthesia . Post Anesthesia Instructions: If you have had General Anesthesia or IV Sedation: * Do not drive today. * Resume driving when surgeon permits. * Do not make important decisions or sign legal documents today. * Call surgeon for: 1. Temperature elevations greater than 101 degrees F. 2. Uncontrollable pain. 3. Excessive bleeding. 4. Persistent nausea and vomiting. 5. Medication intolerance (nausea, vomiting or rash). * For nausea and vomiting use only clear liquids such as: tea, soda, bouillon until nausea subsides, then gradually increase diet as tolerated. * If you have any concerns or questions, call your surgeon's office. If physician is unavailable and it is an emergency, call 911 or go to the nearest emergency room. . Instructions / Follow-Up Instructions / Follow-Up ACTIVITY RECOMMENDATIONS: * Being up and around is good, but no strenuous activity, heavy lifting or physical exertion for one week. * Keep your head elevated 30 degrees when lying down or sleeping. * Do not blow your nose for 48 hours, sniff back instead. * Avoid hot showers. OVER THE COUNTER MEDICATIONS: * You may use Tylenol * Avoid aspirin or aspirin containing products, e.g. as they may increase bleeding. SPECIAL CARE INSTRUCTIONS: * Expect to have bloody drainage from your nose and/or down your throat for one to three days. Change drip pad as needed. * Begin irrigating your nose with saline solution today, at least six to ten times per day and sniff back to help remove old clots or crust. * You may experience nasal and facial congestion, pain and pressure, this is normal. * Please call with any significant and/or progressive pain, redness, swelling around the eyes, visual changes, fever of 101.5 degrees F, active bleeding or any problems or concerns. * If active bleeding occurs, spray the nose three times at one minute intervals with Afrin spray and call or cell phone: . If unable to reach the doctor, go to the nearest Emergency Department. Special Diet: * Avoid extremely hot fluids. FOLLOW UP VISIT: Follow-up Visit with Dr. Sparrow If not already scheduled, please call to schedule. Diet Recommendations Home Diet: no limitations Procedures Procedures Performed: Endoscopic Sinus Surgery, Right & Left Frontal Sinus, Right & Left Sphenoid Sinus, Right & Left Maxillary Sinus, Right & Left Total Ethmoidectomies Pending Studies Studies pending at discharge: no Medical Emergencies . Who to Call and When: Medical Emergencies: If at any time you feel your situation is an emergency, please call 911 immediately. . Non-Emergent Contact Non-Emergency issues call your: Primary Care Provider . . "Provider Documentation" section prepared by Brianna Sparrow. . [place] Drug Monitoring [place] Search Results: no issues identified
[2016-12-09 14:14] VITALS: TEMP 36.6
--- NOTE | 2016-12-09 14:32 | Anesthesia Progress Nt - [facility] ---
Anesthesia Post Op Note Date & Time December 09, 2016 at 14:30 Vital Signs Pain Intensity: 2 Vital Signs Past 12 Hours Date Time Temp Pulse Resp B/P Pulse Ox O2 Delivery O2 Flow Rate FiO2 12/09/16 14:14 36.6 72 16 136/82 98 Room Air 12/09/16 14:04 69 9 97 12/09/16 14:04 70 9 12/09/16 14:00 124/87 12/09/16 14:00 37.0 70 20 124/87 97 Room Air 12/09/16 13:59 73 13 12/09/16 13:59 77 13 98 12/09/16 13:58 74 13 97 12/09/16 13:58 75 13 12/09/16 13:57 70 14 98 12/09/16 13:57 69 14 12/09/16 13:55 133/81 12/09/16 13:52 74 5 12/09/16 13:52 74 5 98 12/09/16 13:51 72 10 12/09/16 13:51 72 10 98 12/09/16 13:50 126/88 12/09/16 13:49 79 12 12/09/16 13:49 73 12 99 12/09/16 13:48 79 15 100 12/09/16 13:48 80 15 12/09/16 13:45 137/98 12/09/16 13:43 78 14 12/09/16 13:43 78 14 100 12/09/16 13:40 122/91 12/09/16 13:38 85 9 12/09/16 13:38 85 9 100 12/09/16 13:35 154/82 12/09/16 13:33 93 10 12/09/16 13:33 92 10 100 12/09/16 13:30 137/96 12/09/16 13:28 91 11 100 12/09/16 13:28 91 11 12/09/16 13:25 144/88 12/09/16 13:23 91 17 100 12/09/16 13:23 91 17 12/09/16 13:22 96 18 100 12/09/16 13:22 96 18 12/09/16 13:20 130/93 12/09/16 13:20 36.6 94 16 147/97 100 Mask 8 12/09/16 13:17 101 12/09/16 13:17 101 147/97 99 12/09/16 10:51 36.7 77 16 115/77 95 Room Air Notes Mental Status: alert / awake / arousable, participated in evaluation Pt Amnestic to Procedure: Yes Nausea / Vomiting: adequately controlled, improving with treatment Pain: adequately controlled Airway Patency, RR, SpO2: stable & adequate BP & HR: stable & adequate Hydration State: stable & adequate Anesthetic Complications: no major complications apparent The patient was given a scopolamine patch, Decadron, Zofran in the OR. She was given Phenergan (she does not have an allergy) and Zofran in the PACU.
[2016-12-09 14:40] VITALS: BP 118/81; PULSE 69; O2SAT 99
--- NOTE | 2016-12-09 15:31 | OPERATIVE REPORT ---
DATE OF OPERATION: 12/09/2016 PREOPERATIVE DIAGNOSIS: Chronic sinusitis, polyposis. POSTOPERATIVE DIAGNOSIS: Same. PROCEDURE: Right and left frontal, right and left sphenoid, right and left total ethmoid and right and left maxillary sinus antrostomies. SURGEON: Dr. Sparrow. ANESTHESIA: General LMA. COMPLICATIONS: None. BLOOD LOSS: 75 mL. HISTORY OF PRESENT ILLNESS: This 31-year-old lady presented with recurrent chronic sinusitis followed since at least 2009 with persistent pansinusitis on CT scan since 2009. OPERATION AND FINDINGS: PROCEDURE: The patient was brought to the operating room and placed in supine position. General anesthesia was induced using LMA, prepped, draped in usual sterile manner. Nose decongested using cottonoids with topical solution of 4 mL of 4% Xylocaine mixed with 1 mL of epinephrine. Injection 2% Xylocaine 1:1,000 strength epinephrine was also used. Syntervention device calibrated and used for the entire procedure. The right sphenoid cannulated with guidewire and dilated using the 6 mm balloon with [employer] computer guidance, the left sphenoid was also dilated same manner. The right maxillary sinus cannulated with guidewire and dilated using the 6 mm balloon as was the left maxillary sinus. The left nasofrontal duct was cannulated with guidewire, dilated using the 6 mm balloon with [employer] computer guidance. A guidewire was left in place as a marker. Frontal sinusotomy was performed by removing the anterior wall, then the posterior wall of the agger nasi cell with the shaver coupled with the [employer] device. At this point, total ethmoidectomy was performed opening up the bullae ethmoidalis going through the ground lamella into the posterior ethmoid air cells, delineating the skull base and lamina papyracea and following these structures anteriorly exonerating all the posterior and all the anterior ethmoid air cells along with significant amount of polyps and polypoid mucosa. Maxillary sinus was opened by removing the posterior polypoid border at the anterior wall of the bullae ethmoidalis. The sphenoid was opened by removing polypoid tissue at the inferior border of the superior turbinate at the anterior face of the sphenoid. The right frontal sinusotomy, sphenoidotomy, total ethmoidectomy, and maxillary sinus antrostomy performed in similar manner. Propel stents were placed. The patient tolerated the procedure well and was taken to recovery area in satisfactory condition. I attest to the content of the Intraoperative Record and any orders documented therein. Any exceptio ns are noted below.
== END | disposition home or self-care (01) ==
LOC: X.SURG 10:29
PROVIDERS: ATTEND Otolaryngology
DX: J32.9 Chronic sinusitis, unspecified (principal); J33.8 Other polyp of sinus; F41.9 Anxiety disorder, unspecified; J45.909 Unspecified asthma, uncomplicated; F32.9 Major depressive disorder, single episode, unspecified; Z79.899 Other long term (current) drug therapy

== ENCOUNTER 2017-01-29 14:04 | Emergency (ER) | payer OTHER ==
[~2017-01-29] VITALS: Ht 154.9 cm; Wt 93.0 kg
[~2017-01-29 14:04] MED LIST changes: -AMOX875T PO; -ATROPINE SULFATE 0.1 MG/ML 5ML SYR IV PRN; -BACITRACIN OINT 15 GM TUBE ONE; -CEFAZOLIN 2000 MG/60 ML D5W IV SCH; -DEXAMETHASONE SOD INJ 4 MG/ML VIAL ONE; -EpHEDrine SULFATE 50MG/5ML SYR ONE; -EpHEDrine SULFATE INJ 50 MG/ML AMP IV PRN; -EpINEphrine INJ 1MG/ML AMP 1 MG/ML AMP ONE; -FENTANYL CITRATE INJ 50 MCG/1 ML 2 ML VIAL IV PRN; -FENTANYL CITRATE INJ 50 MCG/1 ML 2 ML VIAL ONE; -FLUMAZENIL 0.1 MG/1 ML 10 ML VIAL IV PRN; -HYDR1CAP85 PO; -HYDROmorphone INJ 2 MG/ML SYR/VIAL IV PRN; -IBUP-1050 PO; -LABETALOL HCL IV 5 MG/ML 20ML IV PRN; -LACTATED RINGER'S 1000ML 1,000 ML IV SCH; -LIDO 2%/EPINEPHRINE 1:100000 20 ML VIAL INFIL ONE; -LIDOCAINE 4% MPF SOAK 5 ML = 1 DOSE TOP ONE; -LIDOCAINE HCL 2% 2 ML VIAL (20MG/ML) ONE; -LORA-741 PO; -MEPERIDINE HCL 25 MG/ML CARP IV PRN; -MIDAZOLAM HCL 1 MG/ML 2ML VIAL ONE; -NALOXONE HCL 0.4 MG/1 ML VIAL/CARP IV PRN; -NITR1CAP16 PO; -NYSTCRE32 TOP; -OMEP40CA41 PO; -ONDA4TAB10 SL; -ONDANSETRON INJ 2 MG/ML 2 ML VIAL IV PRN; -ONDANSETRON INJ 2 MG/ML 2 ML VIAL ONE; -OXYCODONE/ACETAMINOPHEN 5-325 TAB PO PRN; -OXYMETAZOLINE HCL 0.05% NA SPR 15 ML BTL SCH; -PHENYLEPHRINE 100MCG/ML 5ML SYR IV PRN; -PROMETHAZINE HCL INJ 12.5 MG in SODIUM CHLORIDE 0.9% 50ML 50 ML IV STA; -PROMETHAZINE HCL INJ 25 MG/ML 1 ML VIAL ONE; -PROPOFOL IV EMULSION 10 MG/ML 20 ML VIAL IV ONE; -SCOPOLAMINE 1.5 MG TDSY TD ONE; -SODIUM CHLORIDE 0.9% 1000ML 1,000 ML IV SCH
[2017-01-29 14:14] VITALS: TEMP 37.1; Ht 154.9 cm; Wt 93.0 kg
--- NOTE | 2017-01-29 14:32 | EMERGENCY ROOM VISIT NOTE ---
History Report prepared by Jossue: Juve Crawford Under the Supervision of: Dr. Genaro Hurtado M.D. First contact with patient: 14:17 Chief Complaint: PAIN (GENERALIZED) Stated Complaint: L BREAST PAIN W/ BURNING. ANXIETY, CHEST PAIN History of Present Illness The patient is a 32 year old female who presents to the Emergency Room with complaints of intermittent breast pain for the past two days. The patient first noticed pain in the left breast but also been feeling pain in the right breast more recently. She also has pain in the right chest area. The pain improves with Tylenol use. She denies redness or discharge from the breasts. The patient has "lumpy breasts" at baseline. She has never experienced pain like this before. The patient denies headache, sore throats, shortness of breath, pain when she takes a deep breath, or rashes. The patient notes that she has been emotional and crying often because of the pain. The patient has 4 children. LNMP was one month ago, and she cannot role out the possibility of . She is not currently breast feeding. The patient takes Topamax and Wellbutrin. She smokes one pack of cigarettes per day. The patient drinks occasionally. She was recently released from probation but did not spend time in half-way. Source of History: patient, family, spouse/significant other Onset: two days ago Position: other (breast, bilateral) Timing: intermittent Modifying Factors (Relieving): tylenol Associated Symptoms: + chest pain, No headache, No sorethroat, No SOB, No rash Review of Systems See HPI for pertinent positives & negatives. A total of 10 systems reviewed and were otherwise negative. Past Medical & Surgical Medical Problems: (1) Anxiety (2) Anxiety disorder (3) Asthma (4) ASTHMA, UNSPECIFIED (5) Depression (6) Depressive disorder (7) (8) Previous Tracheostomy Surgical Problems: (1) Cholecystectomy Old medical records were reviewed. Nurse's notes were reviewed and I agree with. Anxiety and depression. Denies suicidal or homicidal ideations or overdose Family History Diabetes mellitus FHx: cancer FHx: heart disease Hypertension Social History Smoking Status: Current Every Day Smoker Alcohol Use: occasionally Drug Use: none Marital Status: single Housing Status: lives with family Occupation Status: unemployed Current/Historical Medications Scheduled Bupropion (Wellbutrin Sr), 200 MG PO QAM Nitrofurantoin Monohyd Macro (Macrobid), 100 MG PO DAILY Topiramate (Topamax), 100 MG PO BID Scheduled PRN Albuterol Hfa (Ventolin Hfa), 2 PUFFS INH QID PRN for Shortness of Breath Allergies Coded Allergies: Latex1 -Allergic Contact Dermititis (Verified Allergy, Mild, RASH, 01/29/17) Promethazine (Verified Adverse Reaction, Intermediate, ANXIOUS, IRRITABILITY, 01/29/17) Physical Exam Vital Signs Date Time Temp Pulse Resp B/P (MAP) Pulse Ox O2 Delivery O2 Flow Rate FiO2 01/29/17 17:13 89 18 119/86 99 01/29/17 15:49 75 18 125/73 99 Room Air 01/29/17 14:14 37.1 91 16 155/96 100 Room Air Physical Exam General: Moderately anxious young female, in no acute distress otherwise, breathing comfortably on room air. Normal speech HEENT: Normal cephalic atraumatic. Pupils are equal round and reactive to light. Sclerae are anicteric. Extraocular movements are intact. Oropharynx is pink with moist mucous membranes. No swelling of the mouth lips or tongue. Neck: Supple with a midline trachea. No meningeal signs or stiffness, no JVD or bruits. No Stridor. Chest: Clear to auscultation bilaterally. No wheezes or rhonchi. No increased work of breathing. Mildly tender to palpation. Heart: regular rate and rhythm. Abdomen: Soft nontender, nondistended without rebound guarding or rigidity. Extremities: No cyanosis clubbing or edema. No calf tenderness or assymetry Spine/Back. Non tender to palpation. No CVA tenderness Skin: Good turgor without rashes. Neurologic exam: Cranial nerves two through 12 are intact. Motor and sensation are intact and symmetrical throughout. Breast (performed in presence of female nurse dairy farmer): no nipple discharge or abnormality, no redness, diffuse fibrocystic change bilaterally which is symmetrical, no definite mass, no axillary lymphadenopathy or tenderness. Medical Decision & Procedures ER Provider Diagnostic Interpretation: X-ray results as stated below per interpretation by me and the radiologist: CHEST ONE VIEW PORTABLE CLINICAL HISTORY: Chest pain. COMPARISON STUDY: Chest radiograph April 17, 2016. FINDINGS: Lung volumes are normal. Lungs are clear. No pneumothorax or pleural effusion is present. Cardiac size is normal. Mediastinal contours are normal. There is no evidence of pulmonary edema. IMPRESSION: No acute cardiopulmonary findings. Electronically signed by: Lamont Hill M.D. 01/29/2017 3:04 PM Dictated Date/Time: 01/29/2017 3:03 PM Laboratory Results 01/29/17 14:55 Red Blood Count 5.04, Mean Corpuscular Volume 87.7, Mean Corpuscular Hemoglobin 29.6, Mean Corpuscular Hemoglobin Concent 33.7, Mean Platelet Volume 9.1, Neutrophils (%) (Auto) 71.2, Lymphocytes (%) (Auto) 22.4, Monocytes (%) (Auto) 5.3, Eosinophils (%) (Auto) 0.7, Basophils (%) (Auto) 0.2, Neutrophils # (Auto) 6.73, Lymphocytes # (Auto) 2.12, Monocytes # (Auto) 0.50, Eosinophils # (Auto) 0.07, Basophils # (Auto) 0.02 01/29/17 14:55 Test 01/29/17 14:55 01/29/17 15:03 White Blood Count 9.46 K/uL (4.8-10.8) Red Blood Count 5.04 M/uL (4.2-5.4) Hemoglobin 14.9 g/dL (12.0-16.0) Hematocrit 44.2 % (37-47) Mean Corpuscular Volume 87.7 fL (80-100) Mean Corpuscular Hemoglobin 29.6 pg (25-34) Mean Corpuscular Hemoglobin Concent 33.7 g/dl (32-36) Platelet Count 280 K/uL (130-400) Mean Platelet Volume 9.1 fL (7.4-10.4) Neutrophils (%) (Auto) 71.2 % Lymphocytes (%) (Auto) 22.4 % Monocytes (%) (Auto) 5.3 % Eosinophils (%) (Auto) 0.7 % Basophils (%) (Auto) 0.2 % Neutrophils # (Auto) 6.73 K/uL (1.4-6.5) Lymphocytes # (Auto) 2.12 K/uL (1.2-3.4) Monocytes # (Auto) 0.50 K/uL (0.11-0.59) Eosinophils # (Auto) 0.07 K/uL (0-0.5) Basophils # (Auto) 0.02 K/uL (0-0.2) RDW Standard Deviation 43.5 fL (36.4-46.3) RDW Coefficient of Variation 13.5 % (11.5-14.5) Immature Granulocyte % (Auto) 0.2 % Immature Granulocyte # (Auto) 0.02 K/uL (0.00-0.02) Red Blood Cell Morphology Unremarkable Anion Gap 7.0 mmol/L (3-11) Est Creatinine Clear Calc Drug Dose 93.1 ml/min Estimated GFR () 97.4 Estimated GFR (Non- 84.1 BUN/Creatinine Ratio 11.2 (10-20) Calcium Level 9.3 mg/dl (8.5-10.1) Total Bilirubin 0.4 mg/dl (0.2-1) Direct Bilirubin < 0.1 mg/dl (0-0.2) Aspartate Amino Transf (AST/SGOT) 9 U/L (15-37) Alanine Aminotransferase (ALT/SGPT) 17 U/L (12-78) Alkaline Phosphatase 74 U/L (45-117) Total Protein 8.1 gm/dl (6.4-8.2) Albumin 4.4 gm/dl (3.4-5.0) Lipase 94 U/L (73-393) Human Chorionic Gonadotropin, Qual NEG (NEG) Bedside Troponin I < 0.030 ng/ml (0-0.045) Laboratory studies as stated above per my review. Medications Administered Medications (Trade) Dose Ordered Sig/Minh Route Start Time Stop Time Status Last Admin Dose Admin Ketorolac Tromethamine (Toradol Inj) 30 mg NOW STAT IV 01/29/17 15:28 01/29/17 15:29 DC 01/29/17 15:48 30 MG Lorazepam (Ativan Tab) 1 mg NOW STAT SL 01/29/17 15:28 01/29/17 15:29 DC 01/29/17 15:48 1 MG ECG Indication: chest pain Rate (beats per minute): 80 Rhythm: normal sinus Findings: no acute ischemic change, no ectopy Comparison ECG Date: 2015 Change: no significant change ED Course 1420: Past medical records reviewed. The patient was evaluated in room B4b, and a complete history and physical examination were performed. 1528: Ativan 1 mg SL, Toradol 30 mg IV. 1650: Reassessed the patient. Discussed the workup. She verbalized understanding of the discharge instructions. The patient is ready for discharge. Medical Decision Differential diagnosis includes anxiety, costochondritis, pulmonary disease, infection, cardiac disease, PE. Medication Reconciliation: I attest that I have personally reviewed the patient' s current medication list. Blood pressure Screening: Patient was found to have normal blood pressure on final screening and does not require follow-up. This patient comes in as described above. She's been complaining of chest pain. It seems that is mostly right-sided breast pain but also a little bit on the left she tells me. It is producible with palpation, she tells me as well. She's had no trauma. She is very anxious and keeps asking me if she might have cancer. She seems very anxious about this. She was given Ativan 1 mg while she was here as well as Toradol 30 mg IV. EKG does not suggest acute coronary syndrome or arrhythmia nor do her symptoms. Chest x-ray is unremarkable. There are no findings to suggest congestive heart failure, pneumonia, or pneumothorax or mass. She has no acute electrolyte or metabolic abdomen. She is not . I did a breast exam with a female nurse dairy farmer present and she has nothing to suggest mastitis or cellulitis. There is no masses. She does have a lot of fibrocystic change. She's given a follow-up with her doctor on Tuesday which I told her to get rechecked. She can use ibuprofen and return if: Increasing pain, fever or chills, worsening of symptoms, any new problems or concerns. Impression Primary Impression: Right-sided chest pain Additional Impressions: Painful breasts Anxiety Scribe Attestation The scribe's documentation has been prepared under my direction and personally reviewed by me in its entirety. I confirm that the note above accurately reflects all work, treatment, procedures, and medical decision making performed by me. Departure Information Dispostion Home / Self-Care Referrals Don Lopez M.D. (PCP) Forms HOME CARE DOCUMENTATION FORM, IMPORTANT VISIT INFORMATION, WORK / SCHOOL INSTRUCTIONS Patient Instructions My [facility] Additional Instructions Rest. Drink plenty of fluids. Use ibuprofen 400 mg every 6 hours, take with food Follow-up with your doctor this week for recheck Return if: Increasing pain, worsening of symptoms, fever or chills, any new problems or concerns. Problem Qualifiers
[2017-01-29] MEDS ORDERED: NITR1CAP16 PO (15:03)
--- NOTE | 2017-01-29 15:05 | DIAGNOSTIC IMAGING REPORT ---
CHEST ONE VIEW PORTABLE CLINICAL HISTORY: Chest pain. COMPARISON STUDY: Chest radiograph April 17, 2016. FINDINGS: Lung volumes are normal. Lungs are clear. No pneumothorax or pleural effusion is present. Cardiac size is normal. Mediastinal contours are normal. There is no evidence of pulmonary edema. IMPRESSION: No acute cardiopulmonary findings. Electronically signed by: Lamont Hill M.D. 01/29/2017 3:04 PM Dictated Date/Time: 01/29/2017 3:03 PM
[2017-01-29 15:09] LABS: HEMATOCRIT 44.2 % (37-47); MEAN CELL VOLUME 87.7 fL (80-100); MEAN CORPUSCULAR HEMOGLOBIN 29.6 pg (25-34); MEAN CORPUSCULAR HGB CONC 33.7 g/dl (32-36); MEAN PLATELET VOLUME 9.1 fL (7.4-10.4); PLATELET COUNT 280 K/uL (130-400); RED BLOOD COUNT 5.04 M/uL (4.2-5.4); WHITE BLOOD COUNT 9.46 K/uL (4.8-10.8)
[2017-01-29 15:25] LABS: ALT/SGPT 17 U/L (12-78); AST/SGOT 9 U/L (15-37); BLOOD UREA NITROGEN 10 mg/dl (7-18); BUN/CREATININE RATIO 11.2 (10-20); CALCIUM 9.3 mg/dl (8.5-10.1); CARBON DIOXIDE 22 mmol/L (21-32); CHLORIDE 112 mmol/L (98-107); CREATININE 0.91 mg/dl (0.60-1.20); GLUCOSE 91 mg/dl (70-99); POTASSIUM 3.9 mmol/L (3.5-5.1); SODIUM 141 mmol/L (136-145)
[2017-01-29 15:28] LABS: ALKALINE PHOSPHATASE 74 U/L (45-117)
[2017-01-29] MEDS ORDERED: KETOROLAC TROMETHAMINE 30 MG/ML VIAL IV STA (15:28)
[2017-01-29] MEDS ORDERED: LORAZEPAM 1 MG TAB SL STA (15:28)
[2017-01-29 15:43] LABS: BASO % 0.2 %; BASO ABS # 0.02 K/uL (0-0.2); COMPLETE YES; EOS % 0.7 %; IG% 0.2 %; LYMPH % 22.4 %; LYMPH ABS # 2.12 K/uL (1.2-3.4); MONO % 5.3 %; NEUT % 71.2 %; PREG INTERNAL NEGATIVE QC NEG CLEAR BACKGROUND; PREG INTERNAL POSITIVE QC POS CONTROL LINE
[2017-01-29 17:13] VITALS: BP 119/86; PULSE 89; O2SAT 99
[2017-01-30] MEDS ORDERED: ESCI1TAB6 PO (15:53)
== END 2017-01-29 17:14 | disposition home or self-care (01) ==
LOC: C.EDB 14:05
DX: N64.4 Mastodynia (principal); R07.9 Chest pain, unspecified; F41.9 Anxiety disorder, unspecified; Z79.899 Other long term (current) drug therapy; F17.210 Nicotine dependence, cigarettes, uncomplicated; J45.909 Unspecified asthma, uncomplicated; Z90.49 Acquired absence of other specified parts of digestive tract; Z83.3 Family history of diabetes mellitus; Z80.9 Family history of malignant neoplasm, unspecified; Z82.49 Family history of ischemic heart disease and other diseases of the circulatory system

== ENCOUNTER 2017-01-30 15:43 | Emergency (ER) | payer OTHER ==
[~2017-01-30] VITALS: Ht 162.6 cm; Wt 89.7 kg
[~2017-01-30 15:43] MED LIST changes: -AMOX250C PO; -ESCI1TAB6 PO; +NITR1CAP16 PO; -OXYC-57 PO
[2017-01-30] MEDS ORDERED: ESCI1TAB6 PO (15:53)
[2017-01-30 16:07] VITALS: TEMP 36.7; Ht 162.6 cm; Wt 89.7 kg
[2017-01-30] MEDS ORDERED: ONDANSETRON INJ 2 MG/ML 2 ML VIAL IV STA (16:15)
[2017-01-30] MEDS ORDERED: ALUMINUM/MAGNESIUM SUSP 30 ML UDC PO STA (16:15)
[2017-01-30] MEDS ORDERED: LIDOCAINE HCL 2% VISC SOLN 20 ML UDC PO STA (16:15)
[2017-01-30 16:54] LABS: HEMATOCRIT 41.7 % (37-47); MEAN CORPUSCULAR HEMOGLOBIN 28.7 pg (25-34); MEAN CORPUSCULAR HGB CONC 33.3 g/dl (32-36); PLATELET COUNT 291 K/uL (130-400); RED BLOOD COUNT 4.85 M/uL (4.2-5.4); WHITE BLOOD COUNT 8.56 K/uL (4.8-10.8)
[2017-01-30 17:04] LABS: PARTIAL THROMBOPLASTIN RATIO 1.2; PROTHROMBIN TIME (PATIENT) 11.2 SECONDS (9.0-12.0)
[2017-01-30 17:09] LABS: POINT OF CARE TROPONIN I < 0.030 ng/ml (0-0.045)
[2017-01-30] MEDS ORDERED: LORAZEPAM 2 MG/ML 1 ML VIAL IV STA (17:12)
[2017-01-30] MEDS ORDERED: KETOROLAC TROMETHAMINE 30 MG/ML VIAL IV STA (17:12)
[2017-01-30 17:14] LABS: BUN/CREATININE RATIO 10.9 (10-20); CALCIUM 9.5 mg/dl (8.5-10.1); CREATININE 0.99 mg/dl (0.60-1.20); POTASSIUM 4.1 mmol/L (3.5-5.1)
[2017-01-30 17:17] LABS: BASO % 0.2 %; BASO ABS # 0.02 K/uL (0-0.2); COMPLETE YES; EOS % 0.6 %; IG% 0.1 %; LYMPH % 20.2 %; LYMPH ABS # 1.73 K/uL (1.2-3.4); MONO % 5.1 %; NEUT % 73.8 %
[2017-01-30] MEDS ORDERED: ATIVAN 1MG HOMEPACK PO ONE (18:00)
[2017-01-30 18:22] VITALS: BP 122/74; PULSE 72; O2SAT 96
--- NOTE | 2017-01-30 20:12 | EMERGENCY ROOM VISIT NOTE ---
History Report prepared by Jossue: Marjan Ramírez Under the Supervision of: Dr. Miller Reyes M.D. First contact with patient: 16:07 Chief Complaint: ANXIETY Stated Complaint: EMOTIONAL, Nursing Triage Summary: chest pain, different from her anxiety attacks. Was in ed 01/29 with right sided chest pain. 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 The patient was in the ED yesterday for breast pain, chest pain, and anxiety. She had a work-up and was discharged home. She is currently complaining of chest pain for the past three hours. The patient states that 1 hour ago her pain started radiating into her left shoulder, which is unusual for her. She is anxious because of her symptoms. She has a history of panic attacks but states that this does not feel like her typical anxiety attacks. The patient describes her pain as sharp and rates it as a 4/10 in severity. She is also feeling nauseated and shaky. She denies shortness of breath, pain or swelling in her legs, recent cold symptoms, and chance of . She denies SI and HI. The patient does not take an OCP. She states this is the same chest pain that she had yesterday but it is now radiating into her left trapezius. Source of History: patient Onset: PRESS ASSISTANT AND FEEDER Position: other (global) Symptom Intensity: 4/10 Quality: other (anxiety) Timing: constant Modifying Factors (Worsening): other (chest pain) Associated Symptoms: + chest pain, + nausea, No SOB Review of Systems See HPI for pertinent positives & negatives. A total of 10 systems reviewed and were otherwise negative. Past Medical & Surgical Medical Problems: (1) Anxiety (2) Anxiety disorder (3) Asthma (4) ASTHMA, UNSPECIFIED (5) Depression (6) Depressive disorder (7) (8) Previous Tracheostomy Surgical Problems: (1) Cholecystectomy Family History Diabetes mellitus FHx: cancer FHx: heart disease Hypertension Social History Smoking Status: Current Every Day Smoker Alcohol Use: occasionally Drug Use: none Marital Status: single Housing Status: lives with family Occupation Status: unemployed Current/Historical Medications Scheduled Bupropion (Wellbutrin Sr), 200 MG PO BID Escitalopram Oxalate (Lexapro), 5 MG PO DAILY Nitrofurantoin Monohyd Macro (Macrobid), 100 MG PO DAILY Topiramate (Topamax), 100 MG PO BID Scheduled PRN Albuterol Hfa (Ventolin Hfa), 2 PUFFS INH QID PRN for Shortness of Breath Allergies Coded Allergies: Latex1 -Allergic Contact Dermititis (Verified Allergy, Mild, RASH, 01/29/17) Promethazine (Verified Adverse Reaction, Intermediate, ANXIOUS, IRRITABILITY, 01/29/17) Physical Exam Vital Signs Date Time Temp Pulse Resp B/P (MAP) Pulse Ox O2 Delivery O2 Flow Rate FiO2 01/30/17 18:22 72 18 122/74 96 01/30/17 17:48 70 17 138/80 96 01/30/17 17:43 77 21 97 01/30/17 17:32 72 16 121/89 96 Room Air 01/30/17 17:31 121/89 01/30/17 17:14 126/84 01/30/17 17:13 91 20 99 01/30/17 16:43 84 13 01/30/17 16:13 82 22 97 01/30/17 16:10 79 01/30/17 16:07 36.7 96 18 140/87 97 Room Air 01/30/17 16:05 99 Room Air 01/30/17 15:59 140/87 Physical Exam Constitutional: Vital signs reviewed. Eyes: Pupils are equal round reactive to light. Conjunctiva are noninjected. ENT: Pharynx is clear without erythema or exudate. Mucous membranes are moist. Neck supple without meningeal signs. Respiratory: Clear to auscultation bilaterally. Breath sounds are equal bilaterally. Cardiovascular: Regular rate and rhythm. No rubs or gallops. GI: Soft, nondistended and nontender. Bowel sounds are present. Musculoskeletal: She has reproducible chest wall tenderness and tenderness over her left trapezius muscle. No peripheral edema. No lower extremity tenderness. Integumentary: No cyanosis. Neurological: The patient is awake and alert. No focal deficits. Psychiatric: Anxious Medical Decision & Procedures Laboratory Results 01/30/17 16:40 Red Blood Count 4.85, Mean Corpuscular Volume 86.0, Mean Corpuscular Hemoglobin 28.7, Mean Corpuscular Hemoglobin Concent 33.3, Mean Platelet Volume 9.0, Neutrophils (%) (Auto) 73.8, Lymphocytes (%) (Auto) 20.2, Monocytes (%) (Auto) 5.1, Eosinophils (%) (Auto) 0.6, Basophils (%) (Auto) 0.2, Neutrophils # (Auto) 6.31, Lymphocytes # (Auto) 1.73, Monocytes # (Auto) 0.44, Eosinophils # (Auto) 0.05, Basophils # (Auto) 0.02 01/30/17 16:40 Test 01/30/17 16:40 01/30/17 16:49 White Blood Count 8.56 K/uL (4.8-10.8) Red Blood Count 4.85 M/uL (4.2-5.4) Hemoglobin 13.9 g/dL (12.0-16.0) Hematocrit 41.7 % (37-47) Mean Corpuscular Volume 86.0 fL (80-100) Mean Corpuscular Hemoglobin 28.7 pg (25-34) Mean Corpuscular Hemoglobin Concent 33.3 g/dl (32-36) Platelet Count 291 K/uL (130-400) Mean Platelet Volume 9.0 fL (7.4-10.4) Neutrophils (%) (Auto) 73.8 % Lymphocytes (%) (Auto) 20.2 % Monocytes (%) (Auto) 5.1 % Eosinophils (%) (Auto) 0.6 % Basophils (%) (Auto) 0.2 % Neutrophils # (Auto) 6.31 K/uL (1.4-6.5) Lymphocytes # (Auto) 1.73 K/uL (1.2-3.4) Monocytes # (Auto) 0.44 K/uL (0.11-0.59) Eosinophils # (Auto) 0.05 K/uL (0-0.5) Basophils # (Auto) 0.02 K/uL (0-0.2) RDW Standard Deviation 41.9 fL (36.4-46.3) RDW Coefficient of Variation 13.3 % (11.5-14.5) Immature Granulocyte % (Auto) 0.1 % Immature Granulocyte # (Auto) 0.01 K/uL (0.00-0.02) Prothrombin Time 11.2 SECONDS (9.0-12.0) Prothromb Time International Ratio 1.0 (0.9-1.1) Activated Partial Thromboplast Time 30.1 SECONDS (21.0-31.0) Partial Thromboplastin Ratio 1.2 Anion Gap 9.0 mmol/L (3-11) Est Creatinine Clear Calc Drug Dose 89.3 ml/min Estimated GFR () 88.0 Estimated GFR (Non- 75.9 BUN/Creatinine Ratio 10.9 (10-20) Calcium Level 9.5 mg/dl (8.5-10.1) Bedside D-Dimer 381 ng/mlFEU (0-450) Bedside Troponin I < 0.030 ng/ml (0-0.045) Laboratory results as reviewed by me. Medications Administered Medications (Trade) Dose Ordered Sig/Minh Route Start Time Stop Time Status Last Admin Dose Admin Ondansetron HCl (Zofran Inj) 4 mg NOW STAT IV 01/30/17 16:15 01/30/17 16:16 DC 01/30/17 16:55 4 MG Lidocaine HCl (Viscous Lidocaine 2% Soln) 10 ml NOW STAT PO 01/30/17 16:15 01/30/17 16:16 DC 01/30/17 16:55 10 ML Al Hydroxide/Mg Hydroxide (Maalox Susp) 30 ml NOW STAT PO 01/30/17 16:15 01/30/17 16:16 DC 01/30/17 16:54 30 ML Lorazepam (Ativan Inj) 1 mg NOW STAT IV 01/30/17 17:12 01/30/17 17:13 DC 01/30/17 17:28 1 MG Ketorolac Tromethamine (Toradol Inj) 10 mg NOW STAT IV 01/30/17 17:12 01/30/17 17:13 DC 01/30/17 17:28 10 MG Lorazepam (Ativan 1MG Home Pack) 1 homepack UD ONCE PO 01/30/17 18:00 01/30/17 18:01 DC 01/30/17 18:17 1 HOMEPACK ECG Indication: chest pain Rate (beats per minute): 78 Rhythm: normal sinus Findings: no acute ischemic change, no ectopy ED Course 1607: The patient was evaluated in room A7. A complete history and physical exam was performed. 1615: Maalox 30 ml PO, Lidocaine HCl 10 ml PO, Zofran 4 mg IV 1712: Toradol 10 mg IV, Lorazepam 1 mg IV 1751: I reassessed the patient at this time. She is feeling better and resting comfortably. I discussed the results and treatment plan with the patient. I answered all pertaining that she had. She expressed understanding and verbalized agreement. The patient will be discharged home. 1800: Lorazepam PO 1 homepack Medical Decision This is a 32-year-old female who presents with chest pain. Differential diagnosis includes costochondritis, pleurisy, pulmonary embolism, anxiety, panic attack. I did perform a limited focused review of portions of the patient 's old chart on the electronic medical record. The patient was here yesterday for breast pain, chest pain, and anxiety. She had a work-up here and was discharged home. She had a negative test yesterday. Medication Reconciliation: I attest that I have personally reviewed the patient' s current medication list. Blood Pressure Screening: Patient was found to have an elevated blood pressure and was referred to their primary doctor for recheck and further treatment. I did evaluate the patient as noted above. The patient is presenting with chest pain. She had chest pain yesterday and had a significant evaluation here with a negative workup. She developed the same chest pain today and became very anxious. She states the same chest pain as yesterday but she does not have the breast pain and the pain is now radiating into her left trapezius muscle. On examination she is tender to palpation over the chest wall as well as the trapezius muscle. She also states that she is nauseated. IV access was established. The patient was placed on a continuous electronic device monitor. I did treat the patient with Zofran IV. She was also given a GI cocktail. I did order and personally review the patient's 12-lead EKG as described above. I did order and review the patient's blood work as noted in the electronic medical record. Troponin and d-dimer are negative. The patient requested something for anxiety and was given Ativan IV. She was given Toradol IV. I did reassess the patient. I did discuss the test results with her. She is feeling better. She was advised follow closely with her doctor. She was discharged in good condition. Impression Primary Impression: Acute chest pain Additional Impression: Anxiety Scribe Attestation The scribe's documentation has been prepared under my direct and personally reviewed by me in its entirety. I confirm that the note above accurately reflects all work, treatment, procedures, and medical decision making performed by me. Departure Information Dispostion Home / Self-Care Referrals Don Lopez M.D. (PCP) Forms HOME CARE DOCUMENTATION FORM, IMPORTANT VISIT INFORMATION Patient Instructions ED Chest Pain Atypical Unkn Cause, My [facility] Additional Instructions You have been examined and treated today on an emergency basis only. This is not a substitute for, or an effort to provide, complete comprehensive medical care. It is impossible to recognize and treat all injuries or illnesses in a single emergency department visit. It is therefore important that you follow up closely with your physician. Call as soon as possible for an appointment. Return for worsening symptoms or if you develop fever, difficulty breathing, or any other concerning symptoms. Problem Qualifiers
== END 2017-01-30 18:20 | disposition home or self-care (01) ==
LOC: EDBD 15:43 → C.EDA 15:46
DX: R07.9 Chest pain, unspecified (principal); F41.9 Anxiety disorder, unspecified; J45.909 Unspecified asthma, uncomplicated; F43.9 Reaction to severe stress, unspecified; F17.200 Nicotine dependence, unspecified, uncomplicated; Z93.0 Tracheostomy status; Z79.899 Other long term (current) drug therapy; Z90.49 Acquired absence of other specified parts of digestive tract; Z83.3 Family history of diabetes mellitus; Z80.9 Family history of malignant neoplasm, unspecified; Z82.49 Family history of ischemic heart disease and other diseases of the circulatory system

== ENCOUNTER → 2017-02-02 | Outpatient (CLI) | payer OTHER ==
[~2017-02-02] MED LIST changes: +ESCI1TAB6 PO; +HYDR1CAP85 PO; +IBUP-1050 PO; +LORA-741 PO; +NYSTCRE32 TOP; +OMEP40CA41 PO; +ONDA4TAB10 SL
== END | disposition home or self-care (01) ==
LOC: C.LABBFT 11:33
PROVIDERS: ATTEND Physician Assistant Medical
DX: F41.9 Anxiety disorder, unspecified (principal)

== ENCOUNTER 2017-02-04 07:57 | Emergency (ER) | payer OTHER ==
[~2017-02-04] VITALS: Ht 154.9 cm; Wt 94.0 kg
[~2017-02-04 07:57] MED LIST changes: -HYDR1CAP85 PO; -IBUP-1050 PO; -LORA-741 PO; -NYSTCRE32 TOP; -OMEP40CA41 PO; -ONDA4TAB10 SL
[2017-02-04 08:12] VITALS: TEMP 36.7; Ht 154.9 cm; Wt 94.0 kg
[2017-02-04] MEDS ORDERED: SODIUM CHLORIDE 0.9% 1000ML 1,000 ML IV STA (08:17)
[2017-02-04] MEDS ORDERED: KETOROLAC TROMETHAMINE 30 MG/ML VIAL IV STA (08:30)
[2017-02-04 08:46] LABS: BASO % 0.2 %; BASO ABS # 0.02 K/uL (0-0.2); COMPLETE YES; EOS % 0.8 %; HEMATOCRIT 42.5 % (37-47); IG% 0.2 %; LYMPH % 22.3 %; LYMPH ABS # 2.22 K/uL (1.2-3.4); MEAN CELL VOLUME 85.2 fL (80-100); MEAN CORPUSCULAR HEMOGLOBIN 28.7 pg (25-34); MEAN CORPUSCULAR HGB CONC 33.6 g/dl (32-36); MONO % 5.3 %; NEUT % 71.2 %; PLATELET COUNT 274 K/uL (130-400); RED BLOOD COUNT 4.99 M/uL (4.2-5.4); WHITE BLOOD COUNT 9.97 K/uL (4.8-10.8)
[2017-02-04] MEDS ORDERED: ONDANSETRON INJ 2 MG/ML 2 ML VIAL IV STA (08:46)
[2017-02-04 08:52] LABS: URINE APPEARANCE CLEAR (CLEAR); URINE BILIRUBIN NEG (NEG); URINE COLOR YELLOW; URINE NITRITE NEG (NEG); URINE PH 5.5 (4.5-7.5); URINE SPECIFIC GRAVITY 1.011 (1.000-1.030); UROBILINOGEN NEG (NEG)
[2017-02-04 08:58] LABS: MANUAL MICROSCOPIC REQUIRED? NO; REVIEW REQ? NO
--- NOTE | 2017-02-04 09:18 | DIAGNOSTIC IMAGING REPORT ---
ABDOMEN 2VIEW W/PA CHEST RTN CLINICAL HISTORY: abdominal pain/nausea/vomiting/constipation pain. Nausea. COMPARISON STUDY: 01/29/2017 FINDINGS: The soft tissues, psoas shadows, renal outlines and intestinal gas pattern appear normal. There is no evidence for bowel obstruction. There is no evidence for free intraperitoneal air. No abnormal abdominal calcifications are seen. A frontal view of the chest was performed and is unremarkable. IMPRESSION: Normal study. Electronically signed by: Van Jonas M.D. 02/04/2017 9:17 AM Dictated Date/Time: 02/04/2017 9:15 AM
[2017-02-04 09:30] LABS: ALKALINE PHOSPHATASE 63 U/L (45-117); ALT/SGPT 18 U/L (12-78); BLOOD UREA NITROGEN 8 mg/dl (7-18); BUN/CREATININE RATIO 10.2 (10-20); CALCIUM 9.2 mg/dl (8.5-10.1); CARBON DIOXIDE 22 mmol/L (21-32); CHLORIDE 110 mmol/L (98-107); CREATININE 0.81 mg/dl (0.60-1.20); GLUCOSE 92 mg/dl (70-99); SODIUM 141 mmol/L (136-145)
--- NOTE | 2017-02-04 09:33 | EMERGENCY ROOM VISIT NOTE ---
ED Visit Note First contact with patient: 08:09 I have personally seen and evaluated the patient with the physician seismic survey assistant. I agree with the diagnostic/management decisions and have personally been involved in these decisions and agree with the diagnosis.
[2017-02-04] MEDS ORDERED: ONDA4TAB10 SL (09:38)
--- NOTE | 2017-02-04 09:40 | EMERGENCY ROOM VISIT NOTE ---
History First contact with patient: 08:09 Chief Complaint: GI ASSESSMENT Stated Complaint: STOMACH PAIN,LUMP IN RECTUM,NAUSEA Nursing Triage Summary: pt reports left sided abd pain since yesterday. pt also reports nausea and vomitting. pt reports constipation - last bm today "i went a little bit this morning." pt reports "i stuck my fingers in my vagina to try to make myself poop and there was a lump and my boyfriend found a lump in my butt." History of Present Illness The patient is a 32 year old female who is well-known to the emergency room presents to the today with multiple complaints. Her main complaint is abdominal pain, nausea and constipation. The patient states that she did not have a normal bowel movement for several days. She states she took MiraLAX and Dulcolax 3 days ago without any results therefore she brought her fingers and her vagina and tried to press on her bowels to make her go. She states that she felt a lump in her vagina. She also states that her boyfriend felt a lump in her rectum. The patient denies any hematochezia or melena. The patient does admit to 3 episodes of vomiting since the onset of her symptoms. The patient also admits to some dysuria and frequency but denies any urgency or hematuria. The patient is concerned that she has cancer. Review of Systems 10 system review was performed and was negative unless stated otherwise history of present illness. Past Medical/Surgical History Medical Problems: (1) Anxiety (2) Anxiety disorder (3) Asthma (4) ASTHMA, UNSPECIFIED (5) Depression (6) Depressive disorder (7) (8) Previous Tracheostomy Surgical Problems: (1) Cholecystectomy Family History Diabetes mellitus FHx: cancer FHx: heart disease Hypertension Social History Smoking Status: Current Every Day Smoker Alcohol Use: occasionally Drug Use: none Marital Status: single Housing Status: lives with family Occupation Status: unemployed Current/Historical Medications Scheduled Bupropion (Wellbutrin Sr), 200 MG PO BID Escitalopram Oxalate (Lexapro), 5 MG PO DAILY Nitrofurantoin Monohyd Macro (Macrobid), 100 MG PO DAILY Topiramate (Topamax), 100 MG PO BID Scheduled PRN Albuterol Hfa (Ventolin Hfa), 2 PUFFS INH QID PRN for Shortness of Breath Allergies Coded Allergies: Latex1 -Allergic Contact Dermititis (Verified Allergy, Mild, RASH, 01/29/17) Promethazine (Verified Adverse Reaction, Intermediate, ANXIOUS, IRRITABILITY, 01/29/17) Physical Exam Vital Signs Date Time Temp Pulse Resp B/P (MAP) Pulse Ox O2 Delivery O2 Flow Rate FiO2 02/04/17 08:12 36.7 90 18 148/91 99 Room Air Physical Exam GENERAL: 32-year-old white female appears in no acute distress. MENTAL Status: Patient is alert and oriented 3. The patient is slightly anxious. MOUTH: Mucosa is moist. NECK: Supple, no lymphadenopathy noted. No carotid bruits noted. LUNGS: Clear auscultation without wheezes rales or rhonchi. CARDIAC: Regular rate and rhythm without murmur. Pulses is full and equal throughout. BACK: No CVA tenderness noted. ABDOMEN: Positive bowel sounds all 4 quadrants. Soft, mild tenderness palpation over the entire left side of the abdomen and suprapubic region. Remainder of the abdomen is nontender to palpation without organomegaly or masses. RECTAL: No external masses noted. Anal sphincter tone intact. No internal masses noted. Stool guaiac was negative. EXTREMITIES: No cyanosis or edema noted. Medical Decision & Procedures ER Provider Diagnostic Interpretation: ABDOMEN 2VIEW W/PA CHEST RTN CLINICAL HISTORY: abdominal pain/nausea/vomiting/constipation pain. Nausea. COMPARISON STUDY: 01/29/2017 FINDINGS: The soft tissues, psoas shadows, renal outlines and intestinal gas pattern appear normal. There is no evidence for bowel obstruction. There is no evidence for free intraperitoneal air. No abnormal abdominal calcifications are seen. A frontal view of the chest was performed and is unremarkable. IMPRESSION: Normal study. Electronically signed by: Van Jonas M.D. 02/04/2017 9:17 AM Dictated Date/Time: 02/04/2017 9:15 AM Laboratory Results 02/04/17 08:34 Red Blood Count 4.99, Mean Corpuscular Volume 85.2, Mean Corpuscular Hemoglobin 28.7, Mean Corpuscular Hemoglobin Concent 33.6, Mean Platelet Volume 9.0, Neutrophils (%) (Auto) 71.2, Lymphocytes (%) (Auto) 22.3, Monocytes (%) (Auto) 5.3, Eosinophils (%) (Auto) 0.8, Basophils (%) (Auto) 0.2, Neutrophils # (Auto) 7.10, Lymphocytes # (Auto) 2.22, Monocytes # (Auto) 0.53, Eosinophils # (Auto) 0.08, Basophils # (Auto) 0.02 02/04/17 08:34 Test 02/04/17 08:17 02/04/17 08:34 White Blood Count 9.97 K/uL (4.8-10.8) Red Blood Count 4.99 M/uL (4.2-5.4) Hemoglobin 14.3 g/dL (12.0-16.0) Hematocrit 42.5 % (37-47) Mean Corpuscular Volume 85.2 fL (80-100) Mean Corpuscular Hemoglobin 28.7 pg (25-34) Mean Corpuscular Hemoglobin Concent 33.6 g/dl (32-36) Platelet Count 274 K/uL (130-400) Mean Platelet Volume 9.0 fL (7.4-10.4) Neutrophils (%) (Auto) 71.2 % Lymphocytes (%) (Auto) 22.3 % Monocytes (%) (Auto) 5.3 % Eosinophils (%) (Auto) 0.8 % Basophils (%) (Auto) 0.2 % Neutrophils # (Auto) 7.10 K/uL (1.4-6.5) Lymphocytes # (Auto) 2.22 K/uL (1.2-3.4) Monocytes # (Auto) 0.53 K/uL (0.11-0.59) Eosinophils # (Auto) 0.08 K/uL (0-0.5) Basophils # (Auto) 0.02 K/uL (0-0.2) RDW Standard Deviation 40.5 fL (36.4-46.3) RDW Coefficient of Variation 13.0 % (11.5-14.5) Immature Granulocyte % (Auto) 0.2 % Immature Granulocyte # (Auto) 0.02 K/uL (0.00-0.02) Anion Gap 9.0 mmol/L (3-11) Est Creatinine Clear Calc Drug Dose 105.3 ml/min Estimated GFR () 112.2 Estimated GFR (Non- 96.8 BUN/Creatinine Ratio 10.2 (10-20) Calcium Level 9.2 mg/dl (8.5-10.1) Total Bilirubin 0.4 mg/dl (0.2-1) Direct Bilirubin mg/dl (0-0.2) Aspartate Amino Transf (AST/SGOT) U/L (15-37) Alanine Aminotransferase (ALT/SGPT) 18 U/L (12-78) Alkaline Phosphatase 63 U/L (45-117) Total Protein 7.7 gm/dl (6.4-8.2) Albumin 4.1 gm/dl (3.4-5.0) Lipase 91 U/L (73-393) Medications Administered Medications (Trade) Dose Ordered Sig/Minh Route Start Time Stop Time Status Last Admin Dose Admin Sodium Chloride 1,000 ml @ 999 mls/hr Q1H1M STAT IV 02/04/17 08:17 02/04/17 09:17 DC 02/04/17 08:43 999 MLS/HR Ketorolac Tromethamine (Toradol Inj) 30 mg NOW STAT IV 02/04/17 08:30 02/04/17 08:31 DC 02/04/17 09:16 30 MG Ondansetron HCl (Zofran Inj) 4 mg NOW STAT IV 02/04/17 08:46 02/04/17 08:47 DC 02/04/17 09:16 4 MG ED Course The patient was evaluated. IV access was obtained. The patient was given 1 L normal saline wide-open. She was given Zofran 4 mg IV push for nausea and Toradol 30 mg IV for pain. CBC differential, renal profile, LFTs and lipase levels were ordered. Urinalysis was ordered. Abdominal series x-ray was ordered and interpreted by the radiologist and myself as above without any acute findings. Urinalysis was negative. Labs are reviewed and were unremarkable.. The patient was informed of all findings. I discussed with the patient the only definite way she is going to find out if she has colon cancer would be to get a colonoscopy. The patient verbalized understanding. The patient was discharged home in stable condition. Medical Decision Differential diagnosis include viral gastroenteritis, bowel obstruction, constipation, diverticulitis, Impression Primary Impression: Gastroenteritis Departure Information Dispostion Home / Self-Care Condition GOOD Prescriptions Ondasetron Odt (ZOFRAN ODT) 4 Mg Tab 4 MG SL Q6H for Nausea, #10 TAB Prov: Becky Jonas PA-C 02/04/17 Referrals Don Lopez M.D. (PCP) Forms HOME CARE DOCUMENTATION FORM, IMPORTANT VISIT INFORMATION Patient Instructions ED Nausea Vomiting, My [facility] Additional Instructions Push fluids. Follow bland diet. Advance diet slowly as tolerated. Take Zofran as needed for nausea. Recommend MiraLAX daily. If you are concerned about colon cancer you need to discuss this with your family physician.
[2017-02-04 09:48] VITALS: BP 115/71; PULSE 71; O2SAT 98
[2017-02-04] MEDS ORDERED: LORA-741 PO (09:56)
== END 2017-02-04 10:00 | disposition home or self-care (01) ==
LOC: C.EDB 07:58
DX: K52.9 Noninfective gastroenteritis and colitis, unspecified (principal); F41.9 Anxiety disorder, unspecified; J45.909 Unspecified asthma, uncomplicated; F32.9 Major depressive disorder, single episode, unspecified; Z90.49 Acquired absence of other specified parts of digestive tract; Z83.3 Family history of diabetes mellitus; Z82.49 Family history of ischemic heart disease and other diseases of the circulatory system; F17.210 Nicotine dependence, cigarettes, uncomplicated; Z79.899 Other long term (current) drug therapy

== ENCOUNTER → 2017-02-04 | Outpatient (CLI) | payer OTHER ==
[2017-02-07 09:25] LABS: CHLAMYDIA TRACH RNA*** NOT DETECTED (NOT DETECTED); GC (NEIS GONORRHOEAE)RNA** NOT DETECTED (NOT DETECTED)
== END | disposition home or self-care (01) ==
LOC: C.LABSPEC 17:46
PROVIDERS: ATTEND Obstetrics & Gynecology
DX: N94.10 Unspecified dyspareunia (principal)

== ENCOUNTER → 2017-02-04 | Outpatient (CLI) | payer OTHER | END | disposition home or self-care (01) | LOC: C.PAPS 14:40 | PROVIDERS: ATTEND Obstetrics & Gynecology | DX: Z12.4 Encounter for screening for malignant neoplasm of cervix (principal) ==

== ENCOUNTER → 2017-02-21 | Outpatient (CLI) | payer OTHER ==
[~2017-02-21] MED LIST changes: +HYDR1CAP85 PO; +IBUP-1050 PO; +LORA-741 PO; +NYSTCRE32 TOP; +OMEP40CA41 PO
[2017-02-21 14:40] LABS: URINE APPEARANCE CLEAR (CLEAR); URINE BILIRUBIN NEG (NEG); URINE COLOR YELLOW; URINE NITRITE NEG (NEG); URINE PH 5.5 (4.5-7.5); URINE SPECIFIC GRAVITY 1.019 (1.000-1.030); UROBILINOGEN NEG (NEG)
[2017-02-21 14:41] LABS: MANUAL MICROSCOPIC REQUIRED? NO; REVIEW REQ? NO
== END | disposition home or self-care (01) ==
LOC: C.LABSPEC 13:40
PROVIDERS: ATTEND Physician Assistant
DX: R10.2 Pelvic and perineal pain (principal)

== ENCOUNTER → 2017-02-21 | Outpatient (CLI) | payer OTHER ==
--- NOTE | 2017-02-21 14:32 | MAMMOGRAPHY REPORT ---
BILATERAL DIGITAL DIAGNOSTIC MAMMOGRAM TOMOSYNTHESIS WITH CAD AND TARGETED BILATERAL ULTRASOUND: 02/21 CLINICAL HISTORY: The patient reports intermittent bilateral breast pain for approximately 2-3 months . The pain involves the entire right breast and portions of the left medial breast. She reports pos sible lumps in the right lower outer breast. TECHNIQUE: Breast tomosynthesis in addition to standard 2D mammography was performed. Current study was also evaluated with a Computer Aided Detection (CAD) system. Bilateral CC and MLO 2-D and tomosy nthesis images were obtained. COMPARISON: No prior exams were available for comparison. BREAST COMPOSITION: There are scattered areas of fibroglandular density in both breasts. FINDINGS: Square markers nehemias the sites of pain in the right upper outer and left lower inner quadra nts. There are no suspicious masses, calcifications, or areas of architectural distortion noted mamm ographically. Targeted ultrasound was performed of the area of the palpable lumps pointed out by the patient involv ing the right lower outer quadrant periareolar region from approximately 7 to 9:00. Targeted ultraso und was also performed of the left medial breast at the site of pain pointed out by the patient. Son ographically normal tissue is seen in these regions, without evidence of a mass or other suspicious s onographic abnormality. IMPRESSION: ACR BI-RADS CATEGORY 2: BENIGN, TARGETED ULTRASOUND ACR BI-RADS CATEGORY 2: BENIGN No suspicious mammographic or sonographic abnormality at the site of bilateral intermittent breast pa in and possible right breast lumps. There is no mammographic or targeted sonographic evidence of mal ignancy. Recommend clinical follow-up. The patient has been verbally notified of the results. Approximately 10% of breast cancers are not detected with mammography. A negative mammographic report should not delay biopsy if a clinically suggestive mass is present. Vera Weinberg M.D. /:02/21/2017 13:33:51 Airplane Navigator: Mala Borges, [facility] letter sent: Normal 1/2 BI-RADS Code: ACR BI-RADS Category 2: Benign Ultrasound BI-RADS: ACR BI-RADS Category 2: Benign
== END | disposition home or self-care (01) ==
LOC: C.MAMM 13:00
PROVIDERS: ATTEND Physician Assistant Medical
DX: N64.4 Mastodynia (principal); R10.2 Pelvic and perineal pain

== ENCOUNTER 2017-02-22 19:59 | Emergency (ER) | payer OTHER ==
[~2017-02-22] VITALS: Ht 157.5 cm; Wt 91.9 kg
[~2017-02-22 19:59] MED LIST changes: -HYDR1CAP85 PO; -IBUP-1050 PO; -NYSTCRE32 TOP; -OMEP40CA41 PO
[2017-02-22 20:05] VITALS: TEMP 36.7; Ht 157.5 cm; Wt 91.9 kg
[2017-02-22] MEDS ORDERED: IBUP-1050 PO (20:18)
[2017-02-22] MEDS ORDERED: ONDANSETRON INJ 2 MG/ML 2 ML VIAL IV STA (20:20)
[2017-02-22] MEDS ORDERED: SODIUM CHLORIDE 0.9% 1000ML 1,000 ML IV STA (20:20)
--- NOTE | 2017-02-22 20:53 | EMERGENCY ROOM VISIT NOTE ---
History Report prepared by Jossue: Jacinda Rothman Under the Supervision of: Lul ChopraO. First contact with patient: 20:11 Chief Complaint: ABDOMINAL PAIN Stated Complaint: RIGHT STOMACH PAIN - VOMITING History of Present Illness The patient is a 32 year old female who presents to the Emergency Room with complaints of intermittent right upper quadrant abdominal pain that began three days ago. She currently rates her discomfort as a 10/10 in severity. The patient states that she was evaluated by her PCP two days ago for her pain and states that she was worked up for a UTI. She states that her pain is worsened with eating. The patient states that anything she drinks she vomits and additionally reports nausea. She states that she has been experiencing diarrhea. The patient denies any other pain in her abdomen. She denies any hematuria, but notes a tinge of blood with wiping. The patient denies any history of a kidney stone. She states that she is a smoker, but denies any alcohol use. The patient denies ever having pain like this in the past. She reports a history of asthma. She notes a surgical history of a cholecystectomy. Source of History: patient Onset: three days ago Position: abdomen (RUQ) Symptom Intensity: 10/10 Timing: intermittent Modifying Factors (Worsening): eating Associated Symptoms: + nausea, + vomiting, + diarrhea, No urinary symptoms Review of Systems See HPI for pertinent positives & negatives. A total of 10 systems reviewed and were otherwise negative. Past Medical & Surgical Medical Problems: (1) Anxiety (2) Anxiety disorder (3) Asthma (4) ASTHMA, UNSPECIFIED (5) Depression (6) Depressive disorder (7) (8) Previous Tracheostomy Surgical Problems: (1) Cholecystectomy Family History Diabetes mellitus FHx: cancer FHx: heart disease Hypertension Social History Smoking Status: Current Every Day Smoker Alcohol Use: occasionally Drug Use: none Marital Status: single Housing Status: lives with family Occupation Status: unemployed Current/Historical Medications Scheduled Omeprazole (Prilosec), 40 MG PO DAILY Scheduled PRN Albuterol Hfa (Ventolin Hfa), 2 PUFFS INH QID PRN for Shortness of Breath Ibuprofen (Advil), 200-600 MG PO Q4H PRN for Pain Allergies Coded Allergies: Latex1 -Allergic Contact Dermititis (Verified Allergy, Mild, RASH, 02/22/17 ) Promethazine (Verified Adverse Reaction, Intermediate, ANXIOUS, IRRITABILITY, 02/22/17) Physical Exam Vital Signs Date Time Temp Pulse Resp B/P (MAP) Pulse Ox O2 Delivery O2 Flow Rate FiO2 02/22/17 21:50 72 18 137/76 98 Room Air 02/22/17 20:05 36.7 92 20 145/98 98 Room Air Physical Exam GENERAL: Patient is awake, alert, very anxious and uncomfortable appearing, and appears to be in significant pain. EYES: The conjunctivae are clear. The pupils are round and reactive. EARS, NOSE, MOUTH AND THROAT: The nose is without any evidence of any deformity. Mucous membranes are moist tongue is midline NECK: The neck is nontender and supple. RESPIRATORY: Normal respiratory effort is noted there is no evidence of wheezing rhonchi or rales CARDIOVASCULAR: Regular rate and rhythm noted there no murmurs rubs or gallops normal S1 normal S2 GASTROINTESTINAL: The abdomen is mildly distended, but soft. significant right upper quadrant tenderness to palpation. BACK: Right CVA tenderness to percussion, but no midline tenderness, range of motion is intact. MUSCULOSKELETAL/EXTREMITIES: There is no evidence of gross deformity full range of motion is noted in the hips and shoulders SKIN: There is no obvious evidence of any rash. There are no petechiae, pallor or cyanosis noted. NEUROLOGIC: Patient is awake alert and oriented x3. Medical Decision & Procedures ER Provider Diagnostic Interpretation: Radiology results as stated below per my review and radiologist interpretation: CHEST ONE VIEW PORTABLE CLINICAL HISTORY: 32 years-old Female presenting with ABDOMINAL PAIN/GI. TECHNIQUE: Portable upright AP view of the chest was obtained. COMPARISON: 02/04/2017. FINDINGS: Cardiomediastinal silhouette normal. Lungs and pleural spaces clear. Osseous structures and upper abdomen normal. IMPRESSION: 1. No acute cardiopulmonary disease. Electronically signed by: Kp Adams M.D. 02/22/2017 8:52 PM Dictated Date/Time: 02/22/2017 8:51 PM ABD/PELVIS NO IV OR ORAL CONT CLINICAL HISTORY: 32 years-old Female presenting with right flank pain. TECHNIQUE: Multidetector CT of the abdomen and pelvis was performed without the use of intravenous contrast. IV contrast: None. A dose lowering technique was used consistent with the principles of ALARA (as low as reasonably achievable). COMPARISON: 12/04/2015. CT DOSE (mGy.cm): The estimated cumulative dose is 745.26 mGy.cm. FINDINGS: Investigator topogram: Cholecystectomy clips noted. Lung bases: Lung bases clear. No pericardial or pleural effusion. Liver: Normal morphology. Normal density. Normal noncontrast appearance. Biliary: No gross evidence of biliary ductal dilatation allowing for noncontrast technique. Gallbladder surgically absent. Pancreas: Normal. Spleen: Few punctate calcifications may relate to prior granulomatous infection. Adrenal glands: Normal. Kidneys and ureters: Normal noncontrast appearance. No nephrolithiasis. No hydronephrosis. Ureters normal. Gastrointestinal tract: Normal appendix. No bowel obstruction. Peritoneal cavity: No free fluid or intraperitoneal gas. Bladder: Normal. Pelvic organs: Uterus and ovaries normal. Vasculature: Minimal atherosclerosis of the normal caliber abdominal aorta. Lymph nodes: No gross lymphadenopathy allowing for noncontrast technique. Abdominal wall: Normal. Musculoskeletal: Normal. IMPRESSION: 1. No acute intra-abdominal pathology. No nephrolithiasis. Electronically signed by: Kp Adams M.D. 02/22/2017 9:56 PM Dictated Date/Time: 02/22/2017 9:50 PM Laboratory Results 02/22/17 21:05 Red Blood Count 4.39, Mean Corpuscular Volume 87.5, Mean Corpuscular Hemoglobin 30.1, Mean Corpuscular Hemoglobin Concent 34.4, Mean Platelet Volume 9.2, Neutrophils (%) (Auto) 59.3, Lymphocytes (%) (Auto) 33.3, Monocytes (%) (Auto) 5.7, Eosinophils (%) (Auto) 1.2, Basophils (%) (Auto) 0.4, Neutrophils # (Auto) 4.81, Lymphocytes # (Auto) 2.70, Monocytes # (Auto) 0.46, Eosinophils # (Auto) 0.10, Basophils # (Auto) 0.03 02/22/17 21:05 Test 02/22/17 00:00 02/22/17 21:05 Urine Color YELLOW Urine Appearance CLEAR (CLEAR) Urine pH 5.5 (4.5-7.5) Urine Specific [place] 1.013 (1.000-1.030) Urine Protein NEG (NEG) Urine Glucose (UA) NEG (NEG) Urine Ketones NEG (NEG) Urine Occult Blood TRACE (NEG) Urine Nitrite NEG (NEG) Urine Bilirubin NEG (NEG) Urine Urobilinogen NEG (NEG) Urine Leukocyte Esterase NEG (NEG) Urine WBC (Auto) 1-5 /hpf (0-5) Urine RBC (Auto) 0-4 /hpf (0-4) Urine Hyaline Casts (Auto) 1-5 /lpf (0-5) Urine Epithelial Cells (Auto) >30 /lpf (0-5) Urine Bacteria (Auto) 4+ (NEG) White Blood Count 8.11 K/uL (4.8-10.8) Red Blood Count 4.39 M/uL (4.2-5.4) Hemoglobin 13.2 g/dL (12.0-16.0) Hematocrit 38.4 % (37-47) Mean Corpuscular Volume 87.5 fL (80-100) Mean Corpuscular Hemoglobin 30.1 pg (25-34) Mean Corpuscular Hemoglobin Concent 34.4 g/dl (32-36) Platelet Count 263 K/uL (130-400) Mean Platelet Volume 9.2 fL (7.4-10.4) Neutrophils (%) (Auto) 59.3 % Lymphocytes (%) (Auto) 33.3 % Monocytes (%) (Auto) 5.7 % Eosinophils (%) (Auto) 1.2 % Basophils (%) (Auto) 0.4 % Neutrophils # (Auto) 4.81 K/uL (1.4-6.5) Lymphocytes # (Auto) 2.70 K/uL (1.2-3.4) Monocytes # (Auto) 0.46 K/uL (0.11-0.59) Eosinophils # (Auto) 0.10 K/uL (0-0.5) Basophils # (Auto) 0.03 K/uL (0-0.2) RDW Standard Deviation 43.6 fL (36.4-46.3) RDW Coefficient of Variation 13.6 % (11.5-14.5) Immature Granulocyte % (Auto) 0.1 % Immature Granulocyte # (Auto) 0.01 K/uL (0.00-0.02) Anion Gap 6.0 mmol/L (3-11) Est Creatinine Clear Calc Drug Dose 103.6 ml/min Estimated GFR () 108.9 Estimated GFR (Non- 94.0 BUN/Creatinine Ratio 13.4 (10-20) Calcium Level 8.9 mg/dl (8.5-10.1) Total Bilirubin 0.3 mg/dl (0.2-1) Direct Bilirubin < 0.1 mg/dl (0-0.2) Aspartate Amino Transf (AST/SGOT) 12 U/L (15-37) Alanine Aminotransferase (ALT/SGPT) 26 U/L (12-78) Alkaline Phosphatase 56 U/L (45-117) Total Protein 7.3 gm/dl (6.4-8.2) Albumin 3.9 gm/dl (3.4-5.0) Lipase 115 U/L (73-393) Human Chorionic Gonadotropin, Qual NEG (NEG) Laboratory results per my review. Medications Administered Medications (Trade) Dose Ordered Sig/Minh Route Start Time Stop Time Status Last Admin Dose Admin Sodium Chloride 1,000 ml @ 999 mls/hr Q1H1M STAT IV 02/22/17 20:20 02/22/17 21:20 DC 02/22/17 20:20 999 MLS/HR Ondansetron HCl (Zofran Inj) 4 mg NOW STAT IV 02/22/17 20:20 02/22/17 20:21 DC 02/22/17 20:20 4 MG Morphine Sulfate (MoRPHine SULFATE INJ) 4 mg Q15M PRN IV 02/22/17 20:30 02/22/17 22:44 DC 02/22/17 22:23 4 MG Oxycodone HCl (Roxicodone Immediate Rel 5MG Home Pack) 1 homepack UD ONCE PO 02/22/17 22:00 02/22/17 22:02 DC 02/22/17 22:00 1 HOMEPACK Ondansetron HCl (ZOFRAN ODT 4MG Home Pack) 1 homepack UD ONCE PO 02/22/17 22:00 02/22/17 22:02 DC 02/22/17 22:00 1 HOMEPACK Pantoprazole Sodium (Protonix Tab) 40 mg NOW STAT PO 02/22/17 22:00 02/22/17 22:02 DC 02/22/17 22:00 40 MG ED Course 2017: The patient was evaluated in room C7. A complete history and physical examination were performed. 2020: Ordered Zofran Inj 4 mg IV, Sodium Chloride 1000 ml @ 999 mls/hr IV. 2030: Ordered Morphine Sulfate 4 mg IV. 2199: Ordered Protonix Tab 40 mg PO, Ondansetron HCl 1 homepack PO, Oxycodone HCl 1 homepack PO. 2211: I reevaluated the patient and she is doing well. I discussed the exam findings with her and I discussed the treatment plan. She verbalized complete understanding and agreement. She is ready to go home. Medical Decision Differential diagnosis: Etiologies such as appendicitis, diverticulitis, PUD, biliary pathology, UTI, pancreatitis, obstruction, mesenteric ischemia, aortic pathology, infections, inflammatory bowel disease, renal colic, as well as others were entertained. Medication Reconciliation: I attest that I have personally reviewed the patient' s current medications list. Blood pressure screening: Patient was found to have normal blood pressure on screening and does not require follow-up. The patient is a 32-year-old female who presented to the emergency department for an evaluation of right upper quadrant abdominal pain. The patient's physical exam was not consistent with an acute surgical abdomen. I discussed the patient's laboratory and radiographic studies with her. She was treated with IV fluids IV pain medicine IV antiemetics. On subsequent reevaluation she was comfortable and significantly improved. She was encouraged to rest and avoid any strenuous activity. She was also encouraged to call her family doctor to schedule follow-up appointment. She was also encouraged to return to emergency department immediately if symptoms change worsen or the need arises. [place] Drug Monitoring Program Search Results: patient reviewed within database, see additional documentation Drug Monitoring Findings: Multiple scripts were noted. Impression Primary Impression: Right upper quadrant abdominal pain Scribe Attestation The scribe's documentation has been prepared under my direction and personally reviewed by me in its entirety. I confirm that the note above accurately reflects all work, treatment, procedures, and medical decision making performed by me. Departure Information Dispostion Home / Self-Care Prescriptions Omeprazole (PRILOSEC) 40 Mg Cap 40 MG PO DAILY, #30 CAP Prov: Aric Espinoza, DO 02/22/17 Referrals Don Lopez M.D. (PCP) Forms Call Back Authorization, HOME CARE DOCUMENTATION FORM, IMPORTANT VISIT INFORMATION, Work Instructions Patient Instructions ED Abdominal Pain Unkn Cause, My [facility] Additional Instructions Call your family in the morning to schedule a follow-up appointment. Continue all medications as prescribed. Drink plenty of liquids.
[2017-02-22] MEDS: MoRPHine SULFATE 4 MG/ML 1 ML CARP\\VIAL IV PRN ×2 (21:15→22:23)
[2017-02-22 21:19] LABS: BASO % 0.4 %; BASO ABS # 0.03 K/uL (0-0.2); COMPLETE YES; EOS % 1.2 %; HEMATOCRIT 38.4 % (37-47); IG% 0.1 %; LYMPH % 33.3 %; MEAN CELL VOLUME 87.5 fL (80-100); MEAN CORPUSCULAR HEMOGLOBIN 30.1 pg (25-34); MEAN CORPUSCULAR HGB CONC 34.4 g/dl (32-36); MEAN PLATELET VOLUME 9.2 fL (7.4-10.4); MONO % 5.7 %; NEUT % 59.3 %; PLATELET COUNT 263 K/uL (130-400); RED BLOOD COUNT 4.39 M/uL (4.2-5.4); WHITE BLOOD COUNT 8.11 K/uL (4.8-10.8)
[2017-02-22 21:36] LABS: ALT/SGPT 26 U/L (12-78); BLOOD UREA NITROGEN 11 mg/dl (7-18); BUN/CREATININE RATIO 13.4 (10-20); CALCIUM 8.9 mg/dl (8.5-10.1); CARBON DIOXIDE 23 mmol/L (21-32); CHLORIDE 113 mmol/L (98-107); CREATININE 0.83 mg/dl (0.60-1.20); GLUCOSE 87 mg/dl (70-99); POTASSIUM 3.7 mmol/L (3.5-5.1); SODIUM 142 mmol/L (136-145)
[2017-02-22 21:39] LABS: ALKALINE PHOSPHATASE 56 U/L (45-117); AST/SGOT 12 U/L (15-37)
[2017-02-22 21:43] LABS: URINE APPEARANCE CLEAR (CLEAR); URINE BILIRUBIN NEG (NEG); URINE COLOR YELLOW; URINE EPITHELIAL CELL AUTO >30 /lpf (0-5); URINE NITRITE NEG (NEG); URINE PH 5.5 (4.5-7.5); URINE SPECIFIC GRAVITY 1.013 (1.000-1.030); UROBILINOGEN NEG (NEG)
[2017-02-22 21:47] LABS: MANUAL MICROSCOPIC REQUIRED? NO; REVIEW REQ? NO
[2017-02-22 21:50] VITALS: BP 137/76; PULSE 72; O2SAT 98
[2017-02-22 21:54] LABS: PREG INTERNAL NEGATIVE QC NEG CLEAR BACKGROUND; PREG INTERNAL POSITIVE QC POS CONTROL LINE
--- NOTE | 2017-02-22 21:58 | DIAGNOSTIC IMAGING REPORT ---
ABD/PELVIS NO IV OR ORAL CONT CLINICAL HISTORY: 32 years-old Female presenting with right flank pain. TECHNIQUE: Multidetector CT of the abdomen and pelvis was performed without the use of intravenous contrast. IV contrast: None. A dose lowering technique was used consistent with the principles of ALARA (as low as reasonably achievable). COMPARISON: 12/04/2015. CT DOSE (mGy.cm): The estimated cumulative dose is 745.26 mGy.cm. FINDINGS: Food General Manager topogram: Cholecystectomy clips noted. Lung bases: Lung bases clear. No pericardial or pleural effusion. Liver: Normal morphology. Normal density. Normal noncontrast appearance. Biliary: No gross evidence of biliary ductal dilatation allowing for noncontrast technique. Gallbladder surgically absent. Pancreas: Normal. Spleen: Few punctate calcifications may relate to prior granulomatous infection. Adrenal glands: Normal. Kidneys and ureters: Normal noncontrast appearance. No nephrolithiasis. No hydronephrosis. Ureters normal. Gastrointestinal tract: Normal appendix. No bowel obstruction. Peritoneal cavity: No free fluid or intraperitoneal gas. Bladder: Normal. Pelvic organs: Uterus and ovaries normal. Vasculature: Minimal atherosclerosis of the normal caliber abdominal aorta. Lymph nodes: No gross lymphadenopathy allowing for noncontrast technique. Abdominal wall: Normal. Musculoskeletal: Normal. IMPRESSION: 1. No acute intra-abdominal pathology. No nephrolithiasis. Electronically signed by: Kp Adams M.D. 02/22/2017 9:56 PM Dictated Date/Time: 02/22/2017 9:50 PM
[2017-02-22] MEDS ORDERED: OXYCODONE IR HOME PACK PO ONE (22:00)
[2017-02-22] MEDS ORDERED: ONDANSETRON HOME PACK 4MG OD TAB PO ONE (22:00)
[2017-02-22] MEDS ORDERED: PANTOprazole SOD 40 MG TAB PO STA (22:00)
[2017-02-22] MEDS ORDERED: OMEP40CA41 PO (22:05)
== END 2017-02-22 22:34 | disposition home or self-care (01) ==
LOC: C.EDB 20:00 → C.EDC 22:34
DX: R10.11 Right upper quadrant pain (principal); F41.9 Anxiety disorder, unspecified; J45.909 Unspecified asthma, uncomplicated; E32.9 Disease of thymus, unspecified; Z83.3 Family history of diabetes mellitus; Z82.49 Family history of ischemic heart disease and other diseases of the circulatory system; F17.200 Nicotine dependence, unspecified, uncomplicated

== ENCOUNTER 2017-02-27 10:22 | Emergency (ER) | payer OTHER ==
[~2017-02-27] VITALS: Ht 157.5 cm; Wt 91.4 kg
[~2017-02-27 10:22] MED LIST changes: -BUPR200T2 PO; -ESCI1TAB6 PO; +IBUP-1050 PO; -LORA-741 PO; -NITR1CAP16 PO; +OMEP40CA41 PO; -TOPI100T20 PO
[2017-02-27 10:27] VITALS: TEMP 36.8; Ht 157.5 cm; Wt 91.4 kg
[2017-02-27] MEDS ORDERED: TRIAMCINOLONE EXT STA (10:44)
[2017-02-27] MEDS ORDERED: NYSTATIN EXT STA (10:44)
[2017-02-27] MEDS ORDERED: hydrOXYzine HCL 25 MG TAB PO STA (10:45)
[2017-02-27] MEDS ORDERED: KETOROLAC TROMETHAMINE 60 MG/2 ML VIAL IM STA (10:45)
[2017-02-27] MEDS ORDERED: ESCI1TAB6 PO (10:56)
--- NOTE | 2017-02-27 10:59 | EMERGENCY ROOM VISIT NOTE ---
History Report prepared by Jossue: Jacinda Rothman Under the Supervision of: Dr. Anna Manning M.D. First contact with patient: 10:33 Chief Complaint: ABDOMINAL PAIN Stated Complaint: ABD PAIN/BELLY BUTTON, V, RED AND ITCHY Nursing Triage Summary: Abdominal, nausea, vomiting. States initially had diarrhea and now feels constipated. Hx of cholecystectomy History of Present Illness The patient is a 32 year old female who presents to the Emergency Room with complaints of persistent abdominal pain for the past several weeks. She currently rates her discomfort as an 8/10 in severity. The patient states that she has been experiencing right upper quadrant and epigastric abdominal pain persistently and has been evaluated several times in the emergency department for her pain. She states that she was given medication for acid reflux, but denies any relief. 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 She reports a history of a cholecystectomy, but states that she still has her appendix. The patient additionally associates nausea and vomiting. She states that she was previously experiencing diarrhea, but states that she is now constipated. The patient states that her last bowel movement was yesterday. She states that she has taken Tylenol and Ibuprofen without relief of her symptoms. The patient states that she was prescribed Oxycodone for her pain, but states that they make her sick so she does not take them. She denies any chance of . The patient states that she was just placed on anxiety medications. The patient additionally complains about itchiness around her belly-button. Source of History: patient Onset: several weeks Position: abdomen (RUQ, epigastric) Symptom Intensity: 8/10 Timing: other (persistent) Associated Symptoms: + nausea, + vomiting, + diarrhea Note: Associated Symptoms: constipation Review of Systems See HPI for pertinent positives & negatives. A total of 10 systems reviewed and were otherwise negative. Past Medical & Surgical Medical Problems: (1) Anxiety (2) Anxiety disorder (3) Asthma (4) ASTHMA, UNSPECIFIED (5) Depression (6) Depressive disorder (7) (8) Previous Tracheostomy Surgical Problems: (1) Cholecystectomy Family History Diabetes mellitus FHx: cancer FHx: heart disease Hypertension Social History Smoking Status: Current Every Day Smoker Alcohol Use: occasionally Drug Use: none Marital Status: single Housing Status: lives with family Occupation Status: unemployed Current/Historical Medications Scheduled Escitalopram Oxalate (Lexapro), 5 MG PO DAILY Nystatin-Triamcinolone (Nystatin/Triamcinolone), 1 APPLN TOP BID Scheduled PRN Albuterol Hfa (Ventolin Hfa), 2 PUFFS INH QID PRN for Shortness of Breath Hydroxyzine Pamoate (Vistaril), 25 MG PO Q8 PRN for Anxiety/Agitation Ibuprofen (Advil), 200-600 MG PO Q4H PRN for Pain Allergies Coded Allergies: Latex1 -Allergic Contact Dermititis (Verified Allergy, Mild, RASH, 02/27/17 ) Promethazine (Verified Adverse Reaction, Intermediate, ANXIOUS, IRRITABILITY, 02/27/17) Physical Exam Vital Signs Date Time Temp Pulse Resp B/P (MAP) Pulse Ox O2 Delivery O2 Flow Rate FiO2 02/27/17 11:45 62 18 139/91 99 Room Air 02/27/17 10:27 36.8 94 16 145/90 98 Room Air Physical Exam Vital signs reviewed. General: Well-appearing female, in no significant distress. HEENT: No scleral icterus, PERRLA, neck supple. Atraumatic. Cardiovascular: Regular rate and rhythm, no extra sounds. Pulmonary: Clear to auscultation bilaterally, normal work of breathing. Abdomen: Obese abdomen. diffuse right sided abdominal tenderness without rebound. Soft, nondistended, positive bowel sounds. Musculoskeletal: Atraumatic, no peripheral edema. Neurologic: Patient awake alert and oriented x 3 Skin: Warm, dry, umbilical erythema with minimal drainage, Medical Decision & Procedures Medications Administered Medications (Trade) Dose Ordered Sig/Minh Route Start Time Stop Time Status Last Admin Dose Admin Hydroxyzine HCl (Vistaril Tab) 50 mg NOW STAT PO 02/27/17 10:45 02/27/17 10:47 DC 02/27/17 10:56 50 MG Ketorolac Tromethamine (Toradol Inj) 60 mg NOW STAT IM 02/27/17 10:45 02/27/17 10:47 DC 02/27/17 10:57 60 MG Nystatin/ Triamcinolone Acetonide (Mycogen II Crm) 1 appln TID EXT 02/27/17 14:00 02/27/17 14:00 DC 02/27/17 11:47 1 APPLN ED Course 1039: Past medical records reviewed. The patient was evaluated in room A10. A complete history and physical examination was performed. I discussed the treatment plan with her and she verbalized complete understanding and agreement. She is ready to go home once she receives her medications. 1045: Ordered Toradol Inj 60 mg IM, Vistaril Tab 50 mg PO. 1400: Ordered Nystatin/Triamcinolone Acetonide 1 appln ext. Medical Decision Differential diagnosis: Etiologies such as appendicitis, diverticulitis, PUD, UTI, pancreatitis, obstruction, mesenteric ischemia, aortic pathology, infections, inflammatory bowel disease, renal colic, yeast dermatitis, anxiety, as well as others were entertained. Blood Pressure Screening: Patient was found to have a slightly elevated blood pressure due to circumstances. I do not believe that the patient requires hypertension monitoring. Medication Reconciliation: I attest that I have personally reviewed the patient' s current medication list. This patient was evaluated and appeared to be in some discomfort. She has been evaluated for times in the emergency department last several weeks for right lower quadrant abdominal pain. She has had her gallbladder removed and has an appendix remaining. She has had a CAT scan and an ultrasound performed. Patient is afebrile with stable vital signs. At this time I do not believe this is an acute surgical abdomen. The patient was prescribed Prilosec daily however she stopped taking this medication stating "I do not have acid." She does use ibuprofen for pain. The patient was recently placed on Lexapro for which she stated was helping, she stopped taking the medication and has recently restarted it. I suspect her symptoms are combination of potentially a nerve type pain, anxiety as well. Case management was contacted and will help arrange a sooner follow-up appointment with the patient's PCP. Patient was given IM Toradol 60 mg and 50 mg of oral Vistaril. She was given a prescription for nystatin cream to the belly button 2-3 times daily for 1 week. She will return to the emergency department for worsening of symptoms or any medical concerns. Impression Primary Impression: Yeast dermatitis Additional Impressions: Chronic abdominal pain Anxiety Scribe Attestation The scribe's documentation has been prepared under my direction and personally reviewed by me in its entirety. I confirm that the note above accurately reflects all work, treatment, procedures, and medical decision making performed by me. Departure Information Dispostion Home / Self-Care Prescriptions Hydroxyzine Pamoate (VISTARIL) 25 Mg Cap 25 MG PO Q8 Y for Anxiety/Agitation, #30 CAP Prov: Anna Manning M.D. 02/27/17 Nystatin-Triamcinolone (NYSTATIN/TRIAMCINOLONE) 1 Cre Cre 1 APPLN TOP BID for 7 Days, #15 GM 1 Refill Prov: Anna Manning M.D. 02/27/17 Referrals Don Lopez M.D. (PCP) Forms Call Back Authorization, HOME CARE DOCUMENTATION FORM, IMPORTANT VISIT INFORMATION Patient Instructions My [facility] Additional Instructions Diagnosis: umbilical yeast dermatitis, anxiety Vistaril 25 mg every 8 hours as needed for anxiety, continue your Lexapro as prescribed. Apply the nystatin/triamcinolone cream to your bellybutton 2-3 times daily for 7 days. Wash the bellybutton with warm water and soap 1-2 times daily, PAC dry. Follow-up with your physician for reevaluation this week. Return to the ER for worsening of symptoms or any medical concerns. Problem Qualifiers
[2017-02-27] MEDS ORDERED: HYDR1CAP85 PO (11:04)
[2017-02-27] MEDS ORDERED: NYSTCRE32 TOP (11:04)
[2017-02-27 11:45] VITALS: BP 139/91; PULSE 62; O2SAT 99
[2017-02-27] MEDS ORDERED: NYSTATIN/TRIAMCINOLONE CR 15 GM TUBE EXT SCH (14:00)
== END 2017-02-27 11:50 | disposition home or self-care (01) ==
LOC: C.EDB 10:23 → C.EDA 11:50
DX: B37.89 Other sites of candidiasis (principal); L30.3 Infective dermatitis; G89.29 Other chronic pain; R10.9 Unspecified abdominal pain; F41.9 Anxiety disorder, unspecified; K21.9 Gastro-esophageal reflux disease without esophagitis; J45.909 Unspecified asthma, uncomplicated; F32.9 Major depressive disorder, single episode, unspecified; F17.200 Nicotine dependence, unspecified, uncomplicated; Z90.49 Acquired absence of other specified parts of digestive tract; Z93.0 Tracheostomy status; Z79.899 Other long term (current) drug therapy; Z88.8 Allergy status to other drugs, medicaments and biological substances; Z91.040 Latex allergy status; Z83.3 Family history of diabetes mellitus; Z80.9 Family history of malignant neoplasm, unspecified; Z82.49 Family history of ischemic heart disease and other diseases of the circulatory system

== ENCOUNTER → 2017-03-02 | Outpatient (CLI) | payer OTHER ==
[~2017-03-02] MED LIST changes: +ESCI1TAB6 PO; +HYDR1CAP85 PO; +NYSTCRE32 TOP; -OMEP40CA41 PO
== END | disposition home or self-care (01) ==
LOC: C.LABBFT 11:47
PROVIDERS: ATTEND Physician Assistant Medical
DX: F41.9 Anxiety disorder, unspecified (principal); R10.9 Unspecified abdominal pain

== ENCOUNTER → 2017-03-09 | Outpatient (CLI) | payer OTHER ==
--- NOTE | 2017-03-09 15:32 | DIAGNOSTIC IMAGING REPORT ---
(RENAL)RETROPERITON COMP HISTORY: Pain HYPOGASTRIC PAIN COMPARISON: None. FINDINGS: Right kidney: Lump 0.4 cm maximum linear dimension. No evidence for hydronephrosis. Normal corticomedullary differentiation and cortical thickness. Left kidney: Maximum dimension 10.9 cm. No evidence for hydronephrosis. Normal corticomedullary differentiation and cortical thickness. Bladder: No bladder wall thickening. The bilateral ureteral jets were identified. IMPRESSION: Normal renal ultrasound. The above report was generated using voice recognition software. It may contain grammatical, syntax or spelling errors. Electronically signed by: Van Jonas M.D. 03/09/2017 3:31 PM Dictated Date/Time: 03/09/2017 3:29 PM
== END | disposition home or self-care (01) ==
LOC: C.ULTRBC 14:50
PROVIDERS: ATTEND Physician Assistant
DX: R10.2 Pelvic and perineal pain (principal)

== ENCOUNTER → 2017-03-24 | Outpatient (CLI) | payer OTHER ==
[~2017-03-24] MED LIST changes: -HYDR1CAP85 PO
== END | disposition home or self-care (01) ==
LOC: C.LABSPEC 17:07
PROVIDERS: ATTEND Nurse Practitioner Family
DX: N30.10 Interstitial cystitis (chronic) without hematuria (principal)

== ENCOUNTER 2017-08-26 19:47 | Emergency (ER) | payer OTHER ==
[~2017-08-26] VITALS: Ht 154.9 cm; Wt 98.7 kg
[2017-08-26 19:52] VITALS: TEMP 36.7; Ht 154.9 cm; Wt 98.7 kg
[2017-08-26] MEDS ORDERED: ASPIRIN 81 MG CHEW PO STA (21:00)
--- NOTE | 2017-08-26 21:15 | EMERGENCY ROOM VISIT NOTE ---
History Report prepared by Jossue: Tyra Velásquez Under the Supervision of: Dr. Pro Gunn M.D. First contact with patient: 20:41 Chief Complaint: CARDIAC ASSESSMENT Stated Complaint: CHEST PAIN, PAIN UNDER RT SHOULDER BLADE/NECK PAIN History of Present Illness The patient is a 32 year old female who presents to the Emergency Room with complaints of intermittent episodes of palpations beginning a week ago. She states her palpitations have been followed by right sided chest pain which shoots to her right arm. After the episodes of palpitations, the patient reports feeling fatigued and weak. The patient is on lorazepam for PTSD and anxiety. She states she took a lorazepam an hour ago which has provided her no relief. She states she was not under any increased stress when her episode of palpitations began today. The patient is unsure if she may be . She states she is late on her period and she thinks it may be due to her recent mediation changes. The patient was recently put on Vistaril. The patient denies any cough. She state she smokes cigarettes. She denies any other drug use. The patient denies any recent travel or surgeries. Source of History: patient Onset: a week ago Position: other (generalized) Quality: other (palpations) Timing: intermittent Associated Symptoms: + chest pain, No cough Review of Systems See HPI for pertinent positives and negatives. A total of ten systems were reviewed and were otherwise negative. Past Medical & Surgical Medical Problems: (1) Anxiety (2) Anxiety disorder (3) Asthma (4) ASTHMA, UNSPECIFIED (5) Depression (6) Depressive disorder (7) (8) Previous Tracheostomy Surgical Problems: (1) Cholecystectomy Family History Diabetes mellitus FHx: cancer FHx: heart disease Hypertension Social History Smoking Status: Unknown if Ever Smoked Alcohol Use: occasionally Drug Use: none Marital Status: single Housing Status: lives with family Occupation Status: unemployed Current/Historical Medications Scheduled PRN Hydroxyzine Pamoate (Vistaril), 25 MG PO BID PRN for Anxiety Lorazepam (Ativan), 1 MG PO DAILY PRN for Anxiety Omeprazole (Prilosec), 20 MG PO DAILY PRN for Acid Reflux Allergies Coded Allergies: Latex1 -Allergic Contact Dermititis (Verified Allergy, Mild, RASH, 02/27/17 ) Promethazine (Verified Adverse Reaction, Intermediate, ANXIOUS, IRRITABILITY, 02/27/17) Physical Exam Vital Signs Date Time Temp Pulse Resp B/P (MAP) Pulse Ox O2 Delivery O2 Flow Rate FiO2 08/26/17 22:17 84 21 137/83 08/26/17 22:05 88 134/85 Room Air 08/26/17 21:33 Room Air 08/26/17 21:24 Room Air 08/26/17 21:24 Room Air 08/26/17 21:05 78 08/26/17 19:52 36.7 105 18 158/98 99 Room Air Physical Exam Physical Exam GENERAL: She is oriented to person, place, and time. She appears well- developed and well-nourished. She does not appear distressed. ____ HENT: Exam performed. Head: Normocephalic and atraumatic. Right Ear: External ear normal. No mastoid tenderness. Left Ear: External ear normal. No mastoid tenderness. Mouth/Throat: The oropharynx is clear and moist. No trismus in the jaw. No dental abscesses or uvula swelling. No oropharyngeal exudate or tonsillar abscesses. ____ EYES: Conjunctivae and EOM are normal. Pupils are equal, round, and reactive to light. Right eye exhibits no discharge. Left eye exhibits no discharge. No scleral icterus. ____ NECK: Normal range of motion. Neck supple. No JVD present. No spinous process tenderness present. No carotid bruit present. No rigidity. No tracheal deviation and normal range of motion present. No Brudzinski's sign and no Kernig 's sign noted. ____ CV: Normal rate, regular rhythm, normal heart sounds and intact distal pulses. There is no peripheral edema. Palpable radial pulses bue. ____ PULM/CHEST: Effort normal and breath sounds normal. No respiratory distress. No stridor. She has no wheezes. She has no rales. Chest Wall: She exhibits no tenderness. ____ ABD: The abdomen is soft. Bowel sounds are normal. She has no distension. No mass is present. There is no tenderness. There is no rebound, no guarding, no Michele's sign and no tenderness at McBurney's point. Rovsig negative MUSC/SKEL: Normal range of motion. There is no peripheral edema, tenderness or deformity. LYMPH: No cervical adenopathy. ____ NEURO: She is alert and oriented to person, place, and time. She has normal strength. No cranial nerve deficit or sensory deficit. Coordination and gait normal. GCS eye subscore is 4. GCS verbal subscore is 5. GCS motor subscore is 6. cerbellar tests wnl. ____ SKIN: Skin is warm and dry. She is not diaphoretic. ____ PSYCH: She has a normal mood and affect. Her behavior is normal. Judgment and thought content normal. ____ Medical Decision & Procedures Laboratory Results 08/26/17 21:20 Red Blood Count 4.74, Mean Corpuscular Volume 86.5, Mean Corpuscular Hemoglobin 29.5, Mean Corpuscular Hemoglobin Concent 34.1, Mean Platelet Volume 9.3, Neutrophils (%) (Auto) 55.3, Lymphocytes (%) (Auto) 36.2, Monocytes (%) (Auto) 6.1, Eosinophils (%) (Auto) 1.9, Basophils (%) (Auto) 0.3, Neutrophils # (Auto) 4.98, Lymphocytes # (Auto) 3.26, Monocytes # (Auto) 0.55, Eosinophils # (Auto) 0.17, Basophils # (Auto) 0.03 08/26/17 21:20 Test 08/26/17 21:20 White Blood Count 9.01 K/uL (4.8-10.8) Red Blood Count 4.74 M/uL (4.2-5.4) Hemoglobin 14.0 g/dL (12.0-16.0) Hematocrit 41.0 % (37-47) Mean Corpuscular Volume 86.5 fL (80-100) Mean Corpuscular Hemoglobin 29.5 pg (25-34) Mean Corpuscular Hemoglobin Concent 34.1 g/dl (32-36) Platelet Count 287 K/uL (130-400) Mean Platelet Volume 9.3 fL (7.4-10.4) Neutrophils (%) (Auto) 55.3 % Lymphocytes (%) (Auto) 36.2 % Monocytes (%) (Auto) 6.1 % Eosinophils (%) (Auto) 1.9 % Basophils (%) (Auto) 0.3 % Neutrophils # (Auto) 4.98 K/uL (1.4-6.5) Lymphocytes # (Auto) 3.26 K/uL (1.2-3.4) Monocytes # (Auto) 0.55 K/uL (0.11-0.59) Eosinophils # (Auto) 0.17 K/uL (0-0.5) Basophils # (Auto) 0.03 K/uL (0-0.2) RDW Standard Deviation 41.7 fL (36.4-46.3) RDW Coefficient of Variation 13.0 % (11.5-14.5) Immature Granulocyte % (Auto) 0.2 % Immature Granulocyte # (Auto) 0.02 K/uL (0.00-0.02) Prothrombin Time 10.5 SECONDS (9.0-12.0) Prothromb Time International Ratio 1.0 (0.9-1.1) Activated Partial Thromboplast Time 28.7 SECONDS (21.0-31.0) Partial Thromboplastin Ratio 1.1 D-Dimer 2060 ug/L FEU (0-500) Anion Gap 5.0 mmol/L (3-11) Est Creatinine Clear Calc Drug Dose 108.2 ml/min Estimated GFR () 112.2 Estimated GFR (Non- 96.8 BUN/Creatinine Ratio 13.8 (10-20) Calcium Level 8.8 mg/dl (8.5-10.1) Troponin I < 0.015 ng/ml (0-0.045) Laboratory results reviewed by me Medications Administered Medications (Trade) Dose Ordered Sig/Minh Route Start Time Stop Time Status Last Admin Dose Admin Aspirin (Aspirin Chew) 324 mg NOW STAT PO 08/26/17 21:00 08/26/17 21:03 DC 08/26/17 21:28 324 MG Nitroglycerin (Nitrostat Tab) 0.4 mg NOW STAT SL 08/26/17 22:04 08/26/17 22:05 DC 08/26/17 22:04 0.4 MG ECG Indication: palpitations Rate (beats per minute): 108 Rhythm: sinus rhythm Findings: no acute ischemic change, no ectopy, other (OR, QRS, QTC within normal limits, ST depression and elevation) Change: EKG interpreted by me. ED Course 2045: The patient was evaluated in room B11A. A complete history and physical exam was performed. 2100: Ordered Aspirin 324 mg PO. 2157: Patient D-dimer elevated, will do CT of chest, patient still complains of chest pain, sublingual nitro order. 2203: Ordered Nitroglycerin 0.4 mg SL., Sodium Chloride 1000 ml @ 999 mls/hr IV. 2326: Repeat vitals within normal limits. CTA of the chest within normal limits. No PE. Patient will be discharged follow up with her PCP on Tuesday. DISCHARGE - Plan of care discussed with patient and questions answered. The patient was given both verbal and printed discharge instructions. The patient verbalized understanding and ability to comply. The patient is to seek outpatient follow up as noted in the discharge instructions. The patient verbalized understanding and ability to comply. The patient is discharged in stable condition. The patient was instructed to return for worsening symptoms. Medical Decision Review vital signs within normal limits. Labs including troponin within normal limits. D-dimer was elevated to CTA of the chest was ordered rule out PE. No PE or acute process in the chest. Patient will follow up with her PCP on Tuesday. Medication Reconcilliation Current Medication List: was personally reviewed by me Impression Primary Impression: Palpitations Additional Impression: Anxiety disorder Scribe Attestation The scribe's documentation has been prepared under my direction and personally reviewed by me in its entirety. I confirm that the note above accurately reflects all work, treatment, procedures, and medical decision making performed by me. The chart was completed utilizing [employer] Speech voice recognition software. Grammatical errors, random word insertions, pronoun errors, and incomplete sentences are an occasional consequence of this system due to software limitations, ambient noise, and hardware issues. Any formal questions or concerns about the content, text, or information contained within the body of this dictation should be directly addressed to the physician for clarification. Departure Information Referrals Don Lopez M.D. (PCP) Patient Instructions My [facility] Problem Qualifiers
[2017-08-26] MEDS ORDERED: HYDR25CA PO (21:40)
[2017-08-26] MEDS ORDERED: ATV/1 PO (21:40)
[2017-08-26] MEDS ORDERED: PRLSR20 PO (21:40)
[2017-08-26 21:49] LABS: BASO % 0.3 %; BASO ABS # 0.03 K/uL (0-0.2); EOS % 1.9 %; EOS ABS # 0.17 K/uL (0-0.5); IG# 0.02 K/uL (0.00-0.02); LYMPH % 36.2 %; LYMPH ABS # 3.26 K/uL (1.2-3.4); MEAN CELL VOLUME 86.5 fL (80-100); MEAN CORPUSCULAR HEMOGLOBIN 29.5 pg (25-34); MEAN CORPUSCULAR HGB CONC 34.1 g/dl (32-36); MEAN PLATELET VOLUME 9.3 fL (7.4-10.4); MONO % 6.1 %; MONO ABS # 0.55 K/uL (0.11-0.59); NEUT % 55.3 %; NEUT ABS # 4.98 K/uL (1.4-6.5); PLATELET COUNT 287 K/uL (130-400); RED CELL DISTRIBUTION WIDTH SD 41.7 fL (36.4-46.3); WHITE BLOOD COUNT 9.01 K/uL (4.8-10.8)
[2017-08-26 22:01] LABS: PTT PATIENT 28.7 SECONDS (21.0-31.0)
[2017-08-26] MEDS ORDERED: SODIUM CHLORIDE 0.9% 1000ML 1,000 ML IV STA (22:04)
[2017-08-26] MEDS ORDERED: NITROGLYCERIN 0.4 MG SL PER TAB CHARGE SL STA (22:04)
[2017-08-26 22:15] LABS: BLOOD UREA NITROGEN 11 mg/dl (7-18); CALCIUM 8.8 mg/dl (8.5-10.1); CARBON DIOXIDE 27 mmol/L (21-32); CREATININE 0.81 mg/dl (0.60-1.20); GLUCOSE 103 mg/dl (70-99); POTASSIUM 3.6 mmol/L (3.5-5.1); SODIUM 138 mmol/L (136-145)
[2017-08-26] MEDS ORDERED: OPTIRAY 320 IV PRN (22:15)
--- NOTE | 2017-08-26 23:17 | DIAGNOSTIC IMAGING REPORT ---
CHEST CTA for PULMONARY ARTERIES CT DOSE: 591.00 mGy.cm HISTORY: Right-sided chest pain. TECHNIQUE: Multiaxial CT images of the chest were performed following the intravenous administration of contrast to evaluate the pulmonary arteries. Maximal intensity projection images were also obtained. A dose lowering technique was utilized adhering to the principles of ALARA. COMPARISON STUDY: Chest CTA 04/20/2011. FINDINGS: There is a normal caliber thoracic aorta with no evidence for dissection. There is no evidence for pulmonary embolus. No pleural effusions. No pneumothorax. The liver and spleen are unremarkable. Small hiatus hernia. Cholecystectomy. The mediastinal and bilateral hilar lymphadenopathy has essentially resolved. A few subcentimeter lymph nodes persist. Bilateral calcified hilar lymph nodes are present. No fractures within the visualized osseous structures. Calcified granulomas seen within the lungs. A few scattered subcentimeter nodules measuring up to 4 mm remain stable. Therefore, these are likely benign. No focal lung consolidations to suggest pneumonia. IMPRESSION: No evidence for pulmonary embolus. Electronically signed by: Phan Steinberg M.D. 08/26/2017 11:15 PM Dictated Date/Time: 08/26/2017 11:03 PM
[2017-08-26 23:38] VITALS: BP 135/81; PULSE 79; O2SAT 97
== END 2017-08-26 23:40 | disposition home or self-care (01) ==
LOC: C.EDB 19:49
DX: R00.2 Palpitations (principal); F41.9 Anxiety disorder, unspecified; F43.10 Post-traumatic stress disorder, unspecified; F17.210 Nicotine dependence, cigarettes, uncomplicated; Z83.3 Family history of diabetes mellitus; Z80.9 Family history of malignant neoplasm, unspecified; Z82.49 Family history of ischemic heart disease and other diseases of the circulatory system

== ENCOUNTER → 2017-08-30 | Outpatient (CLI) | payer OTHER ==
[~2017-08-30] MED LIST changes: +ATV/1 PO; -ESCI1TAB6 PO; +HYDR25CA PO; -IBUP-1050 PO; -NYSTCRE32 TOP; +PRLSR20 PO; -VNTHFA/IN INH
== END | disposition home or self-care (01) ==
LOC: C.LABBFT 08:58
PROVIDERS: ATTEND Physician Assistant Medical
DX: R00.2 Palpitations (principal)

== ENCOUNTER 2017-11-22 19:28 | Emergency (ER) | payer OTHER ==
[~2017-11-22] VITALS: Ht 154.9 cm; Wt 100.0 kg
[~2017-11-22 19:28] MED LIST changes: -PRLSR20 PO
[2017-11-22 19:33] VITALS: TEMP 36.7; Ht 154.9 cm; Wt 100.0 kg
[2017-11-22] MEDS ORDERED: CYCLOBENZAPRINE HCL 10 MG TAB PO STA (20:53)
[2017-11-22] MEDS ORDERED: SODIUM CHLORIDE 0.9% 500ML 500 ML IV STA (20:53)
--- NOTE | 2017-11-22 21:00 | EMERGENCY ROOM VISIT NOTE ---
History First contact with patient: 20:33 Chief Complaint: IRREGULAR HEARTBEAT Stated Complaint: CHEST PAIN, RT SHOULDER PAIN, IRREGULAR HEART RATE Nursing Triage Summary: Patient reports substernal chest pain with radiation into right shoulder and back for 30 minutes [employer]OCKET BU[employer]DER, described as pressure/heaviness, states "I've been worked up for this before. I took an ativan because I thought it was my anxiety but it didn't help at all." History of Present Illness The patient is a 32 year old female who presents to the Emergency Room with complaints of right-sided chest pain that started this afternoon around 6:00. She describes as a sharp, stabbing sensation under her right breast and radiating to her right scapula. Movement seems to make the pain worse. She denies any shortness of breath. She has not taken anything for pain. No recent strenuous activity. She has been nauseated without vomiting. Denies abdominal pain. Bowel movements have been regular. No fever, chills or cough Review of Systems 10 system review performed and negative unless noted in HPI or below Past Medical/Surgical History Medical Problems: (1) Anxiety (2) Anxiety disorder (3) Asthma (4) ASTHMA, UNSPECIFIED (5) Depression (6) Depressive disorder (7) (8) Previous Tracheostomy Surgical Problems: (1) Cholecystectomy Family History Diabetes mellitus FHx: cancer FHx: heart disease Hypertension Social History Smoking Status: Current Every Day Smoker Alcohol Use: occasionally Drug Use: none Marital Status: single Housing Status: lives with family Occupation Status: unemployed Current/Historical Medications Scheduled Cyclobenzaprine Hcl (Flexeril), 10 MG PO TID Lorazepam (Ativan), 0.5 MG PO BID Scheduled PRN Omeprazole (Prilosec), 20 MG PO DAILY PRN for Acid Reflux Physical Exam Vital Signs Date Time Temp Pulse Resp B/P (MAP) Pulse Ox O2 Delivery O2 Flow Rate FiO2 11/22/17 22:42 92 133/91 99 Room Air 11/22/17 21:18 85 11/22/17 19:35 99 Room Air 11/22/17 19:33 36.7 100 20 144/91 99 Room Air Physical Exam VITALS: Vitals are noted on the nurse's note and reviewed by myself. Vital signs stable. GENERAL: 32-year-old female, anxious and disgruntled SKIN: The skin was without rashes, erythema, edema, or bruising. HEAD: Normocephalic atraumatic. MOUTH: Mucous membranes moist. Tonsils are not enlarged. Pharynx without erythema or exudate. Uvula midline. Airway patent. Tongue does not deviate. NECK: Supple without nuchal rigidity. No lymphadenopathy. Cervical spine is nontender. No JVD. HEART: Regular rate and rhythm without murmurs gallops or rubs. THORAX: Tenderness to palpation over the mid sternum. Tenderness over the right upper trapezius muscle. LUNGS: Clear to auscultation bilaterally without wheezes, rales or rhonchi. No accessory muscle use. ABDOMEN: Positive bowel sounds x 4.Soft, nontender, without organomegaly. No guarding or rebound tenderness. MUSCULOSKELETAL: No muscle atrophy, erythema, or edema noted. Full range of motion in all extremities.. Strength 5/5 throughout. NEURO: Patient was alert and oriented to person place and time. Normal sensation to touch. No focal neurological deficits. Medical Decision & Procedures ER Provider Diagnostic Interpretation: CXRIMPRESSION: No active disease in the chest. Electronically signed by: Dejon Sarah M.D. 11/22/2017 9:47 PM Dictated Date/Time: 11/22/2017 9:47 PM The status of this report is Signed. Draft = Not yet reviewed or approved by Radiologist. Signed = Reviewed and approved by Radiologist. CTA chest IMPRESSION: 1. No acute intrathoracic findings 2. No evidence of acute pulmonary embolism 3. No evidence of focal pulmonary consolidation. Electronically signed by: Dejon Sarah M.D. 11/22/2017 10:42 PM Dictated Date/Time: 11/22/2017 10:39 PM Laboratory Results 11/22/17 20:20 Red Blood Count 4.65, Mean Corpuscular Volume 85.8, Mean Corpuscular Hemoglobin 30.1, Mean Corpuscular Hemoglobin Concent 35.1, Mean Platelet Volume 9.3, Neutrophils (%) (Auto) 58.8, Lymphocytes (%) (Auto) 31.3, Monocytes (%) (Auto) 7.5, Eosinophils (%) (Auto) 2.0, Basophils (%) (Auto) 0.2, Neutrophils # (Auto) 5.55, Lymphocytes # (Auto) 2.96, Monocytes # (Auto) 0.71, Eosinophils # (Auto) 0.19, Basophils # (Auto) 0.02 11/22/17 20:20 Test 11/22/17 20:20 11/22/17 21:06 White Blood Count 9.45 K/uL (4.8-10.8) Red Blood Count 4.65 M/uL (4.2-5.4) Hemoglobin 14.0 g/dL (12.0-16.0) Hematocrit 39.9 % (37-47) Mean Corpuscular Volume 85.8 fL (80-100) Mean Corpuscular Hemoglobin 30.1 pg (25-34) Mean Corpuscular Hemoglobin Concent 35.1 g/dl (32-36) Platelet Count 267 K/uL (130-400) Mean Platelet Volume 9.3 fL (7.4-10.4) Neutrophils (%) (Auto) 58.8 % Lymphocytes (%) (Auto) 31.3 % Monocytes (%) (Auto) 7.5 % Eosinophils (%) (Auto) 2.0 % Basophils (%) (Auto) 0.2 % Neutrophils # (Auto) 5.55 K/uL (1.4-6.5) Lymphocytes # (Auto) 2.96 K/uL (1.2-3.4) Monocytes # (Auto) 0.71 K/uL (0.11-0.59) Eosinophils # (Auto) 0.19 K/uL (0-0.5) Basophils # (Auto) 0.02 K/uL (0-0.2) RDW Standard Deviation 41.6 fL (36.4-46.3) RDW Coefficient of Variation 13.3 % (11.5-14.5) Immature Granulocyte % (Auto) 0.2 % Immature Granulocyte # (Auto) 0.02 K/uL (0.00-0.02) D-Dimer 2520 ug/L FEU (0-500) Anion Gap 6.0 mmol/L (3-11) Est Creatinine Clear Calc Drug Dose 101.6 ml/min Estimated GFR () 102.9 Estimated GFR (Non- 88.8 BUN/Creatinine Ratio 13.1 (10-20) Calcium Level 9.0 mg/dl (8.5-10.1) Total Bilirubin 0.3 mg/dl (0.2-1) Aspartate Amino Transf (AST/SGOT) 14 U/L (15-37) Alanine Aminotransferase (ALT/SGPT) 26 U/L (12-78) Alkaline Phosphatase 63 U/L (45-117) Total Creatine Kinase 104 U/L (26-192) Creatine Kinase MB 0.8 ng/ml (0.5-3.6) Creatine Kinase MB Ratio 0.8 (0-3.0) Troponin I < 0.015 ng/ml (0-0.045) Total Protein 7.8 gm/dl (6.4-8.2) Albumin 4.0 gm/dl (3.4-5.0) Globulin 3.8 gm/dl (2.5-4.0) Albumin/Globulin Ratio 1.1 (0.9-2) Chemistry Specimen Hemolysis Urine Test NEG (NEG) Medications Administered Medications (Trade) Dose Ordered Sig/Minh Route Start Time Stop Time Status Last Admin Dose Admin Morphine Sulfate (MoRPHine SULFATE INJ) 4 mg Q1H PRN IV 11/22/17 21:00 11/23/17 00:05 DC 11/22/17 22:47 4 MG Cyclobenzaprine HCl (Flexeril Tab) 10 mg NOW STAT PO 11/22/17 20:53 11/22/17 20:56 DC 11/22/17 21:04 10 MG Sodium Chloride 500 ml @ 999 mls/hr Q31M STAT IV 11/22/17 20:53 11/22/17 21:23 DC 11/22/17 21:10 999 MLS/HR Lorazepam 0.5 mg/ Syringe 0.5 ml @ 0.5 mls/min NOW STAT IV 11/22/17 21:35 11/22/17 21:36 DC 11/22/17 21:54 0.5 MLS/MIN Morphine Sulfate (MoRPHine SULFATE INJ) 4 mg NOW STAT IV 11/22/17 22:40 11/22/17 22:41 DC 11/22/17 22:50 4 MG ECG Per My Interpretation Indication: chest pain Rate (beats per minute): 86 Rhythm: normal sinus Change: no significant change ED Course Patient was seen and examined Vital signs including blood pressure were reviewed medications list was verified with patient Labs were obtained, and a saline lock was established EKG was performed and reviewed. The patient was put on a monitor. The patient was medicated with morphine 4 mg IV and Flexeril 10 mg po Upon reevaluation, the patient was complaining of anxiety. She was given Ativan 0.5 mg IV. Her pain was improved. We discussed her workup. She voiced understanding. A CT was performed and reviewed. The patient was feeling more comfortable now. The pain had subsided. We discussed disposition options. She was comfortable being discharged home. I reviewed discharge instructions the patient. They voiced understanding and had no further questions. Medical Decision Differential diagnosis: Acute myocardial infarction, cardiac arrhythmia, anemia , thyroid abnormality, pneumothorax, pneumonia, bronchitis, pericarditis, electrolyte imbalance, anxiety, musculoskeletal pain This patient is a 32-year-old female presents to the emergency department complaining of chest pain. On exam, this pain was reproducible, however the patient is a smoker. I ordered a d-dimer, which was elevated. A CT of the chest was performed. No signs of a PE were noted. Her EKG is normal sinus rhythm without any signs of ischemia or infarction. Troponin is negative. Her pain is likely musculoskeletal causing a flare of her anxiety. She was given a muscle relaxant, and instructed to continue her anxiety medications as prescribed. 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 Attempts were made to minimize the grammatical errors, random word insertions, pronoun errors and incomplete sentences. Any formal questions or concerns about the content, text or information contained within the body of this dictation should be directly addressed to the provider for clarification. Medication Reconcilliation Current Medication List: was personally reviewed by me Blood Pressure Screening Patient's blood pressure: Elevated blood pressure Blood pressure disposition: Did not require urgent referral Impression Primary Impression: Chest pain Departure Information Dispostion Home / Self-Care Condition GOOD Prescriptions Cyclobenzaprine Hcl (FLEXERIL) 10 Mg Tab 10 MG PO TID for Muscle Spasms, #20 TAB Prov: Josette Olivia PA-C 11/22/17 Referrals Don Lopez M.D. (PCP) Sergio Landaverde MD Patient Instructions My [facility] Additional Instructions You were evaluated in the emergency department for chest pain. This is likely muscular in nature. This is possibly causing a flare of your anxiety. Please skip your dose of Ativan this evening Continue other medications as prescribed Ibuprofen 800 mg and/or Tylenol 1000 mg every 8 hours For pain You may also alternate these medications for more effective pain relief: Ibuprofen --4 HRS--> Tylenol --4 HRS--> ibuprofen --4 HRS--> Tylenol .... Flexeril every 8 hours as needed for muscle spasm/pain. Please also do not drink alcohol or drive while taking this medication. Please follow-up with your clinical project assistant. Call tomorrow morning for a follow-up appointment. Please also follow-up with your primary care physician this week. Do not hesitate to return to the emergency department with any new, worsening or concerning symptoms It was a pleasure participating in your care this evening Work Instructions Return To Work: 2 days School Instructions Return To School: 2 days
[2017-11-22] MEDS: MoRPHine SULFATE 4 MG/ML 1 ML CARP\\VIAL IV PRN ×2 (21:05→22:47)
[2017-11-22 21:07] LABS: BASO % 0.2 %; BASO ABS # 0.02 K/uL (0-0.2); EOS ABS # 0.19 K/uL (0-0.5); HEMATOCRIT 39.9 % (37-47); IG# 0.02 K/uL (0.00-0.02); LYMPH % 31.3 %; LYMPH ABS # 2.96 K/uL (1.2-3.4); MEAN CELL VOLUME 85.8 fL (80-100); MEAN CORPUSCULAR HEMOGLOBIN 30.1 pg (25-34); MEAN CORPUSCULAR HGB CONC 35.1 g/dl (32-36); MEAN PLATELET VOLUME 9.3 fL (7.4-10.4); MONO % 7.5 %; MONO ABS # 0.71 K/uL (0.11-0.59); NEUT % 58.8 %; NEUT ABS # 5.55 K/uL (1.4-6.5); PLATELET COUNT 267 K/uL (130-400); RED CELL DISTRIBUTION WIDTH CV 13.3 % (11.5-14.5); RED CELL DISTRIBUTION WIDTH SD 41.6 fL (36.4-46.3); WHITE BLOOD COUNT 9.45 K/uL (4.8-10.8)
[2017-11-22 21:17] LABS: ALT/SGPT 26 U/L (12-78); AST/SGOT 14 U/L (15-37); BLOOD UREA NITROGEN 11 mg/dl (7-18); CARBON DIOXIDE 25 mmol/L (21-32); CREATININE 0.87 mg/dl (0.60-1.20); GLUCOSE 107 mg/dl (70-99); SODIUM 140 mmol/L (136-145)
[2017-11-22] MEDS ORDERED: LORA-741 PO (21:21)
[2017-11-22 21:23] LABS: ALKALINE PHOSPHATASE 63 U/L (45-117); CKMB 0.8 ng/ml (0.5-3.6); TOTAL PROTEIN 7.8 gm/dl (6.4-8.2)
[2017-11-22] MEDS ORDERED: LORAZEPAM INJ 0.5 MG in SYRINGE 0.25 ML IV STA (21:35)
[2017-11-22] MEDS ORDERED: PRLSR20 PO (21:40)
[2017-11-22] MEDS ORDERED: OPTIRAY 320 IV PRN (21:45)
--- NOTE | 2017-11-22 21:48 | DIAGNOSTIC IMAGING REPORT ---
CHEST ONE VIEW PORTABLE CLINICAL HISTORY: Right-sided chest pain COMPARISON STUDY: 02/22/2017 FINDINGS: The cardiac and mediastinal contours are normal. There is no evidence of focal pulmonary consolidation. There is no evidence of failure. No pleural effusions are visualized.[ IMPRESSION: No active disease in the chest. Electronically signed by: Dejon Sarah M.D. 11/22/2017 9:47 PM Dictated Date/Time: 11/22/2017 9:47 PM
[2017-11-22] MEDS ORDERED: LORAZEPAM 2 MG/ML 1 ML VIAL ONE (21:51)
--- NOTE | 2017-11-22 21:56 | EMERGENCY ROOM VISIT NOTE ---
ED Visit Note First contact with patient: 20:33 I have seen and examined this patient with Josette Olivia and generally agree with the treatment plan as discussed. Problem List Medical Problems: (1) Anxiety Status: Chronic (2) Anxiety disorder Status: Chronic (3) Asthma Status: Chronic (4) ASTHMA, UNSPECIFIED Status: Chronic (5) Depression Status: Chronic (6) Depressive disorder Status: Chronic (7) Status: Chronic (8) Previous Tracheostomy Status: Resolved Surgical Problems: (1) Cholecystectomy Status: Resolved Current/Historical Medications Scheduled Lorazepam (Ativan), 0.5 MG PO BID Scheduled PRN Omeprazole (Prilosec), 20 MG PO DAILY PRN for Acid Reflux Allergies Coded Allergies: Latex1 -Allergic Contact Dermititis (Verified Allergy, Mild, RASH, 02/27/17 ) Promethazine (Verified Adverse Reaction, Intermediate, ANXIOUS, IRRITABILITY, 02/27/17) Vital Signs Date Time Temp Pulse Resp B/P (MAP) Pulse Ox O2 Delivery O2 Flow Rate FiO2 11/22/17 21:18 85 11/22/17 19:35 99 Room Air 11/22/17 19:33 36.7 100 20 144/91 99 Room Air Laboratory Results 11/22/17 20:20 Red Blood Count 4.65, Mean Corpuscular Volume 85.8, Mean Corpuscular Hemoglobin 30.1, Mean Corpuscular Hemoglobin Concent 35.1, Mean Platelet Volume 9.3, Neutrophils (%) (Auto) 58.8, Lymphocytes (%) (Auto) 31.3, Monocytes (%) (Auto) 7.5, Eosinophils (%) (Auto) 2.0, Basophils (%) (Auto) 0.2, Neutrophils # (Auto) 5.55, Lymphocytes # (Auto) 2.96, Monocytes # (Auto) 0.71, Eosinophils # (Auto) 0.19, Basophils # (Auto) 0.02 11/22/17 20:20 Test 11/22/17 20:20 11/22/17 21:06 White Blood Count 9.45 K/uL (4.8-10.8) Red Blood Count 4.65 M/uL (4.2-5.4) Hemoglobin 14.0 g/dL (12.0-16.0) Hematocrit 39.9 % (37-47) Mean Corpuscular Volume 85.8 fL (80-100) Mean Corpuscular Hemoglobin 30.1 pg (25-34) Mean Corpuscular Hemoglobin Concent 35.1 g/dl (32-36) Platelet Count 267 K/uL (130-400) Mean Platelet Volume 9.3 fL (7.4-10.4) Neutrophils (%) (Auto) 58.8 % Lymphocytes (%) (Auto) 31.3 % Monocytes (%) (Auto) 7.5 % Eosinophils (%) (Auto) 2.0 % Basophils (%) (Auto) 0.2 % Neutrophils # (Auto) 5.55 K/uL (1.4-6.5) Lymphocytes # (Auto) 2.96 K/uL (1.2-3.4) Monocytes # (Auto) 0.71 K/uL (0.11-0.59) Eosinophils # (Auto) 0.19 K/uL (0-0.5) Basophils # (Auto) 0.02 K/uL (0-0.2) RDW Standard Deviation 41.6 fL (36.4-46.3) RDW Coefficient of Variation 13.3 % (11.5-14.5) Immature Granulocyte % (Auto) 0.2 % Immature Granulocyte # (Auto) 0.02 K/uL (0.00-0.02) D-Dimer 2520 ug/L FEU (0-500) Anion Gap 6.0 mmol/L (3-11) Est Creatinine Clear Calc Drug Dose 101.6 ml/min Estimated GFR () 102.9 Estimated GFR (Non- 88.8 BUN/Creatinine Ratio 13.1 (10-20) Calcium Level 9.0 mg/dl (8.5-10.1) Total Bilirubin 0.3 mg/dl (0.2-1) Aspartate Amino Transf (AST/SGOT) 14 U/L (15-37) Alanine Aminotransferase (ALT/SGPT) 26 U/L (12-78) Alkaline Phosphatase 63 U/L (45-117) Total Creatine Kinase 104 U/L (26-192) Creatine Kinase MB 0.8 ng/ml (0.5-3.6) Creatine Kinase MB Ratio 0.8 (0-3.0) Troponin I < 0.015 ng/ml (0-0.045) Total Protein 7.8 gm/dl (6.4-8.2) Albumin 4.0 gm/dl (3.4-5.0) Globulin 3.8 gm/dl (2.5-4.0) Albumin/Globulin Ratio 1.1 (0.9-2) Chemistry Specimen Hemolysis Urine Test NEG (NEG) Medications Administered Medications (Trade) Dose Ordered Sig/Minh Route Start Time Stop Time Status Last Admin Dose Admin Morphine Sulfate (MoRPHine SULFATE INJ) 4 mg Q1H PRN IV 11/22/17 21:00 12/06/17 20:59 11/22/17 21:05 4 MG Cyclobenzaprine HCl (Flexeril Tab) 10 mg NOW STAT PO 11/22/17 20:53 11/22/17 20:56 DC 11/22/17 21:04 10 MG Sodium Chloride 500 ml @ 999 mls/hr Q31M STAT IV 11/22/17 20:53 11/22/17 21:23 DC 11/22/17 21:10 999 MLS/HR Lorazepam 0.5 mg/ Syringe 0.5 ml @ 0.5 mls/min NOW STAT IV 11/22/17 21:35 11/22/17 21:36 DC 11/22/17 21:54 0.5 MLS/MIN Departure Information Referrals Don Lopez M.D. (PCP) Patient Instructions My [facility]
[2017-11-22] MEDS ORDERED: MoRPHine SULFATE 4 MG/ML 1 ML CARP\\VIAL IV STA (22:40)
[2017-11-22 22:42] VITALS: BP 133/91; PULSE 92; O2SAT 99
--- NOTE | 2017-11-22 22:43 | DIAGNOSTIC IMAGING REPORT ---
CT ANGIOGRAM OF THE CHEST CLINICAL HISTORY: Right-sided chest pain and elevated d-dimer COMPARISON STUDY: August 26, 2017 TECHNIQUE: Following the IV administration of 94 mL of Optiray-320, CT angiogram of the thorax was performed from the thoracic inlet to the lung bases utilizing the pulmonary embolus protocol. Images are reviewed in the axial, sagittal, and coronal planes. IV contrast was administered without complication. MIP imaging was performed. A dose lowering technique was utilized adhering to the principles of ALARA. CT DOSE: 583.77 mGy.cm FINDINGS: There is stable calcified right hilar lymph nodes. There is no pathologic mediastinal or hilar lymphadenopathy There was no evidence of thoracic aortic dilatation. There were no pulmonary artery filling defects to indicate acute pulmonary embolism. No pleural effusions are visualized. There was no evidence of focal pulmonary consolidation. There are stable right middle lobe perifissural nodules. IMPRESSION: 1. No acute intrathoracic findings 2. No evidence of acute pulmonary embolism 3. No evidence of focal pulmonary consolidation. Electronically signed by: Dejon Sarah M.D. 11/22/2017 10:42 PM Dictated Date/Time: 11/22/2017 10:39 PM
[2017-11-22] MEDS ORDERED: CYCL10TA6 PO (23:21)
== END 2017-11-22 23:38 | disposition home or self-care (01) ==
LOC: C.EDB 19:30
DX: R07.9 Chest pain, unspecified (principal); I49.9 Cardiac arrhythmia, unspecified; M25.511 Pain in right shoulder; F41.9 Anxiety disorder, unspecified; F17.210 Nicotine dependence, cigarettes, uncomplicated; Z82.49 Family history of ischemic heart disease and other diseases of the circulatory system; Z79.899 Other long term (current) drug therapy

== ENCOUNTER 2018-03-13 16:45 | Emergency (ER) | payer OTHER ==
[~2018-03-13] VITALS: Ht 154.9 cm; Wt 97.2 kg
[~2018-03-13 16:45] MED LIST changes: -ONDA4TAB10 SL; -OXYC-90 PO; -RANI150T3 PO
[2018-03-13 16:55] VITALS: TEMP 36.9; Ht 154.9 cm; Wt 97.2 kg
[2018-03-13] MEDS ORDERED: SODIUM CHLORIDE 0.9% 1000ML 1,000 ML IV STA (18:14)
[2018-03-13] MEDS ORDERED: ONDANSETRON INJ 2 MG/ML 2 ML VIAL IV STA ×2 (18:14→20:19)
[2018-03-13] MEDS ORDERED: ACETAMINOPHEN 500 MG TAB PO STA (18:14)
[2018-03-13] MEDS ORDERED: RANI150T3 PO (18:29)
[2018-03-13 18:57] LABS: BASO % 0.3 %; BASO ABS # 0.03 K/uL (0-0.2); EOS % 2.6 %; EOS ABS # 0.28 K/uL (0-0.5); HEMATOCRIT 42.7 % (37-47); HEMOGLOBIN 14.4 g/dL (12.0-16.0); IG# 0.03 K/uL (0.00-0.02); LYMPH % 28.5 %; LYMPH ABS # 3.12 K/uL (1.2-3.4); MEAN CELL VOLUME 87.3 fL (80-100); MEAN CORPUSCULAR HEMOGLOBIN 29.4 pg (25-34); MEAN CORPUSCULAR HGB CONC 33.7 g/dl (32-36); MEAN PLATELET VOLUME 9.3 fL (7.4-10.4); MONO % 4.6 %; NEUT % 63.7 %; NEUT ABS # 6.98 K/uL (1.4-6.5); PLATELET COUNT 280 K/uL (130-400); RED CELL DISTRIBUTION WIDTH CV 13.4 % (11.5-14.5); RED CELL DISTRIBUTION WIDTH SD 42.8 fL (36.4-46.3); WHITE BLOOD COUNT 10.94 K/uL (4.8-10.8)
[2018-03-13 19:21] LABS: ALBUMIN 4.1 gm/dl (3.4-5.0); ALKALINE PHOSPHATASE 61 U/L (45-117); ALT/SGPT 20 U/L (12-78); AST/SGOT 11 U/L (15-37); BLOOD UREA NITROGEN 10 mg/dl (7-18); CALCIUM 9.3 mg/dl (8.5-10.1); CARBON DIOXIDE 24 mmol/L (21-32); CREATININE 0.74 mg/dl (0.60-1.20); GLUCOSE 95 mg/dl (70-99); LIPASE 99 U/L (73-393); POTASSIUM 3.9 mmol/L (3.5-5.1); SODIUM 137 mmol/L (136-145); TOTAL PROTEIN 8.2 gm/dl (6.4-8.2)
[2018-03-13] MEDS ORDERED: MoRPHine SULFATE 4 MG/ML 1 ML CARP\\VIAL IV STA (20:19)
--- NOTE | 2018-03-13 20:28 | DIAGNOSTIC IMAGING REPORT ---
APPENDIX ULTRASOUND HISTORY: Right lower quadrant pain. COMPARISON: Abdomen and pelvis CT 01/20/2018. FINDINGS: Transabdominal scanning of the right lower quadrant was performed. The appendix was not identified. There are no fluid collections or masses within the right lower quadrant. IMPRESSION: The appendix was not identified. Electronically signed by: Phan Steinberg M.D. 03/13/2018 8:27 PM Dictated Date/Time: 03/13/2018 8:27 PM
--- NOTE | 2018-03-13 20:32 | DIAGNOSTIC IMAGING REPORT ---
PELVIC ULTRASOUND, TRANSABDOMINAL AND TRANSVAGINAL HISTORY: Right lower quadrant abdominal pain. COMPARISON: Abdomen and pelvis CT 01/20/2018. FINDINGS: Uterus: 10.1 x 5.3 x 5.3 cm. A few small nabothian cysts. Endometrial stripe: 7 mm in thickness. No intrauterine gestational sac identified. Right ovary: Normal in size and demonstrates normal color flow. No adnexal masses. Left ovary: Normal in size and demonstrates normal color flow. No adnexal masses. Miscellaneous:No pelvic free fluid. IMPRESSION: No evidence for intrauterine gestational sac. In the setting of a positive test this could represent an early nonvisualized intrauterine , nonvisualized ectopic , or recent spontaneous . Follow-up beta-hCG and/or pelvic ultrasound is recommended as well as clinical correlation. Electronically signed by: Phan Steinberg M.D. 03/13/2018 8:31 PM Dictated Date/Time: 03/13/2018 8:27 PM
[2018-03-13] MEDS ORDERED: OPTIRAY 320 IV PRN (21:15)
--- NOTE | 2018-03-13 22:18 | DIAGNOSTIC IMAGING REPORT ---
ABDOMEN AND PELVIS CT WITH IV CONTRAST CT DOSE: 1055.06 mGy.cm HISTORY: Right lower quadrant pain, severe, nausea TECHNIQUE: Multiaxial CT images of the abdomen and pelvis were performed following the use of intravenous contrast. A dose lowering technique was utilized adhering to the principles of ALARA. COMPARISON STUDY: Abdomen and pelvis CT 01/20/2018. FINDINGS: A few stable benign subcentimeter nodules within the lung bases. No pneumoperitoneum. No pneumatosis. No fractures within the visualized osseous structures. Calcified granuloma within the lung bases are again noted. Cholecystectomy. Stable mild intrahepatic bile duct dilatation. This is likely due to the patient's postcholecystectomy state. No hepatic or splenic masses. A few calcified granulomas within the spleen. The pancreas, adrenal glands, and kidneys enhance normally. Suspect a punctate stone within the lower pole the right kidney on image 172. No ureteral stones. No hydronephrosis. No retroperitoneal lymphadenopathy. The bladder, uterus, bilateral adnexa are unremarkable. No bowel wall thickening or obstruction. Normal appendix. IMPRESSION: 1. No bowel wall thickening or obstruction. 2. Normal appendix. 3. Cholecystectomy. 4. Suspect a punctate stone within the right kidney. No ureteral stones. No hydronephrosis. Electronically signed by: Phan Steinberg M.D. 03/13/2018 10:16 PM Dictated Date/Time: 03/13/2018 10:08 PM
[2018-03-13] MEDS ORDERED: LORAZEPAM 0.5 MG TAB PO STA (22:32)
[2018-03-13] MEDS ORDERED: KETOROLAC TROMETHAMINE 30 MG/ML VIAL IV STA (22:32)
[2018-03-13] MEDS ORDERED: OXYC-90 PO (22:35)
[2018-03-13] MEDS ORDERED: ONDA4TAB10 SL (22:35)
[2018-03-13] MEDS ORDERED: OXYCODONE IR HOME PACK PO ONE (22:45)
[2018-03-13] MEDS ORDERED: ONDANSETRON HOME PACK 4MG OD TAB PO ONE (22:45)
--- NOTE | 2018-03-13 22:50 | EMERGENCY ROOM VISIT NOTE ---
History Report prepared by Jossue: Dianna Huff Under the Supervision of: Dr. Jordan Stafford M.D. First contact with patient: 18:01 Chief Complaint: ABDOMINAL PAIN Stated Complaint: BACK AND PELVIC PAIN Nursing Triage Summary: Patient states her LMP was the end of december. 4 days ago with postive test. Last 4 days with vomitting now with RLQ abdominal pain and lower right back pain. History of Present Illness The patient is a 33 year old female who presents to the Emergency Room with complaints of persistent RLQ abdominal pain for the past 2 days. She rates her discomfort as an 8/10 in severity. She took a test last Tuesday, 3 days ago, and it was positive. Her LMP was at the end of December. This is her 5th and she has had 4 normal vaginal deliveries. She states she has never experienced similar pain with pregnancies, but has had similar symptoms with ovarian cysts in the past. She has been nauseous and has vomited. She denies any urinary symptoms or diarrhea. She does not take oral contraceptives. She admits to regularly irregular menstrual periods but denies any recent vaginal bleeding. The patient denies any history of kidney stones. No fevers reported. Source of History: patient Onset: 2 days [employer] Position: abdomen (RLQ) Symptom Intensity: 8/10 Timing: other (persistent) Associated Symptoms: + nausea, + vomiting, No diarrhea, No urinary symptoms Review of Systems See HPI for pertinent positives and negatives. A total of ten systems were reviewed and were otherwise negative. Past Medical & Surgical Medical Problems: (1) Anxiety (2) Anxiety disorder (3) Asthma (4) ASTHMA, UNSPECIFIED (5) Depression (6) Depressive disorder (7) (8) Previous Tracheostomy Surgical Problems: (1) Cholecystectomy (2) Hx of cholecystectomy Family History Diabetes mellitus FHx: cancer FHx: heart disease Hypertension Social History Smoking Status: Current Every Day Smoker Alcohol Use: occasionally Drug Use: none Marital Status: single Housing Status: lives with family Occupation Status: unemployed Current/Historical Medications Scheduled Aspirin (Aspirin Ec), 81 MG PO DAILY Ondasetron Odt (Zofran Odt), 4 MG SL Q6H Scheduled PRN Lorazepam (Ativan), 0.5 MG PO BID PRN for Anxiety Oxycodone Ir (Roxicodone Ir), 1 TAB PO Q6 PRN for Pain Ranitidine Hcl (Zantac), 150 MG PO BID PRN for GI Upset Allergies Coded Allergies: Latex1 -Allergic Contact Dermititis (Verified Allergy, Mild, RASH, 01/20/18 ) Promethazine (Verified Adverse Reaction, Intermediate, ANXIOUS, IRRITABILITY, 01/20/18) Physical Exam Vital Signs Date Time Temp Pulse Resp B/P (MAP) Pulse Ox O2 Delivery O2 Flow Rate FiO2 03/13/18 22:55 77 135/95 96 Room Air 03/13/18 20:37 77 17 123/81 96 Room Air 03/13/18 18:59 77 15 124/84 98 Room Air 03/13/18 16:55 36.9 92 18 139/85 98 Room Air Physical Exam GENERAL: Awake, alert, uncomfortable-appearing on stretcher, in no distress HENT: Normocephalic, atraumatic. Oropharynx unremarkable. EYES: Normal conjunctiva. Sclera non-icteric. NECK: Supple. No nuchal rigidity. RESPIRATORY: Clear to auscultation. No wheezes. Normal respiratory effort. CARDIAC: Normal rate. Normal rhythm. Extremities warm and well perfused. GI: Soft, obese, non-distended. Right inguinal and RLQ tenderness. Some guarding. No masses. RECTAL: Deferred. MUSCULOSKELETAL: Atraumatic. Chest examination reveals no tenderness. There is no CVA tenderness to palpation. LOWER EXTREMITIES: Calves are equal size bilaterally and non-tender. No edema NEURO: Normal sensorium. No sensory or motor deficits noted. No facial droop. SKIN: Warm and dry. No rash or jaundice noted. Medical Decision & Procedures ER Provider Diagnostic Interpretation: Radiology results as stated below per my review and radiologist interpretation: APPENDIX ULTRASOUND HISTORY: Right lower quadrant pain. COMPARISON: Abdomen and pelvis CT 01/20/2018. FINDINGS: Transabdominal scanning of the right lower quadrant was performed. The appendix was not identified. There are no fluid collections or masses within the right lower quadrant. IMPRESSION: The appendix was not identified. Electronically signed by: Phan Steinberg M.D. 03/13/2018 8:27 PM PELVIC ULTRASOUND, TRANSABDOMINAL AND TRANSVAGINAL HISTORY: Right lower quadrant abdominal pain. COMPARISON: Abdomen and pelvis CT 01/20/2018. FINDINGS: Uterus: 10.1 x 5.3 x 5.3 cm. A few small nabothian cysts. Endometrial stripe: 7 mm in thickness. No intrauterine gestational sac identified. Right ovary: Normal in size and demonstrates normal color flow. No adnexal masses. Left ovary: Normal in size and demonstrates normal color flow. No adnexal masses. Miscellaneous:No pelvic free fluid. IMPRESSION: No evidence for intrauterine gestational sac. In the setting of a positive test this could represent an early nonvisualized intrauterine , nonvisualized ectopic , or recent spontaneous . Follow-up beta-hCG and/or pelvic ultrasound is recommended as well as clinical correlation. Electronically signed by: Phan Steinberg M.D. 03/13/2018 8:31 PM ABDOMEN AND PELVIS CT WITH IV CONTRAST CT DOSE: 1055.06 mGy.cm HISTORY: Right lower quadrant pain, severe, nausea TECHNIQUE: Multiaxial CT images of the abdomen and pelvis were performed following the use of intravenous contrast. A dose lowering technique was utilized adhering to the principles of ALARA. COMPARISON STUDY: Abdomen and pelvis CT 01/20/2018. FINDINGS: A few stable benign subcentimeter nodules within the lung bases. No pneumoperitoneum. No pneumatosis. No fractures within the visualized osseous structures. Calcified granuloma within the lung bases are again noted. Cholecystectomy. Stable mild intrahepatic bile duct dilatation. This is likely due to the patient's postcholecystectomy state. No hepatic or splenic masses. A few calcified granulomas within the spleen. The pancreas, adrenal glands, and kidneys enhance normally. Suspect a punctate stone within the lower pole the right kidney on image 172. No ureteral stones. No hydronephrosis. No retroperitoneal lymphadenopathy. The bladder, uterus, bilateral adnexa are unremarkable. No bowel wall thickening or obstruction. Normal appendix. IMPRESSION: 1. No bowel wall thickening or obstruction. 2. Normal appendix. 3. Cholecystectomy. 4. Suspect a punctate stone within the right kidney. No ureteral stones. No hydronephrosis. Electronically signed by: Phan Steinberg M.D. 03/13/2018 10:16 PM Laboratory Results 03/13/18 18:31 Red Blood Count 4.89, Mean Corpuscular Volume 87.3, Mean Corpuscular Hemoglobin 29.4, Mean Corpuscular Hemoglobin Concent 33.7, Mean Platelet Volume 9.3, Neutrophils (%) (Auto) 63.7, Lymphocytes (%) (Auto) 28.5, Monocytes (%) (Auto) 4.6, Eosinophils (%) (Auto) 2.6, Basophils (%) (Auto) 0.3, Neutrophils # (Auto) 6.98, Lymphocytes # (Auto) 3.12, Monocytes # (Auto) 0.50, Eosinophils # (Auto) 0.28, Basophils # (Auto) 0.03 03/13/18 18:31 Test 03/13/18 17:39 03/13/18 18:31 Urine Color YELLOW Urine Appearance CLEAR (CLEAR) Urine pH 7.5 (4.5-7.5) Urine Specific [place] 1.018 (1.000-1.030) Urine Protein NEG (NEG) Urine Glucose (UA) NEG (NEG) Urine Ketones NEG (NEG) Urine Occult Blood NEG (NEG) Urine Nitrite NEG (NEG) Urine Bilirubin NEG (NEG) Urine Urobilinogen NEG (NEG) Urine Leukocyte Esterase NEG (NEG) White Blood Count 10.94 K/uL (4.8-10.8) Red Blood Count 4.89 M/uL (4.2-5.4) Hemoglobin 14.4 g/dL (12.0-16.0) Hematocrit 42.7 % (37-47) Mean Corpuscular Volume 87.3 fL (80-100) Mean Corpuscular Hemoglobin 29.4 pg (25-34) Mean Corpuscular Hemoglobin Concent 33.7 g/dl (32-36) Platelet Count 280 K/uL (130-400) Mean Platelet Volume 9.3 fL (7.4-10.4) Neutrophils (%) (Auto) 63.7 % Lymphocytes (%) (Auto) 28.5 % Monocytes (%) (Auto) 4.6 % Eosinophils (%) (Auto) 2.6 % Basophils (%) (Auto) 0.3 % Neutrophils # (Auto) 6.98 K/uL (1.4-6.5) Lymphocytes # (Auto) 3.12 K/uL (1.2-3.4) Monocytes # (Auto) 0.50 K/uL (0.11-0.59) Eosinophils # (Auto) 0.28 K/uL (0-0.5) Basophils # (Auto) 0.03 K/uL (0-0.2) RDW Standard Deviation 42.8 fL (36.4-46.3) RDW Coefficient of Variation 13.4 % (11.5-14.5) Immature Granulocyte % (Auto) 0.3 % Immature Granulocyte # (Auto) 0.03 K/uL (0.00-0.02) Anion Gap 9.0 mmol/L (3-11) Est Creatinine Clear Calc Drug Dose 116.4 ml/min Estimated GFR () 124.2 Estimated GFR (Non- 107.2 BUN/Creatinine Ratio 13.4 (10-20) Calcium Level 9.3 mg/dl (8.5-10.1) Total Bilirubin 0.2 mg/dl (0.2-1) Direct Bilirubin < 0.1 mg/dl (0-0.2) Aspartate Amino Transf (AST/SGOT) 11 U/L (15-37) Alanine Aminotransferase (ALT/SGPT) 20 U/L (12-78) Alkaline Phosphatase 61 U/L (45-117) Total Protein 8.2 gm/dl (6.4-8.2) Albumin 4.1 gm/dl (3.4-5.0) Lipase 99 U/L (73-393) Human Chorionic Gonadotropin, Qual POS (NEG) Human Chorionic Gonadotropin, Quant 7 mIU/mL Laboratory results reviewed by me Medications Administered Medications (Trade) Dose Ordered Sig/Minh Route Start Time Stop Time Status Last Admin Dose Admin Sodium Chloride 1,000 ml @ 999 mls/hr Q1H1M STAT IV 03/13/18 18:14 03/13/18 19:14 DC 03/13/18 18:36 999 MLS/HR Acetaminophen (Tylenol Tab) 1,000 mg NOW STAT PO 03/13/18 18:14 03/13/18 18:17 DC 03/13/18 18:37 1,000 MG Ondansetron HCl (Zofran Inj) 4 mg NOW STAT IV 03/13/18 18:14 03/13/18 18:17 DC 03/13/18 18:37 4 MG Ondansetron HCl (Zofran Inj) 4 mg NOW STAT IV 03/13/18 20:19 03/13/18 20:21 DC 03/13/18 20:35 4 MG Morphine Sulfate (MoRPHine SULFATE INJ) 4 mg NOW STAT IV 03/13/18 20:19 03/13/18 20:21 DC 03/13/18 20:34 4 MG Lorazepam (Ativan Tab) 0.5 mg NOW STAT PO 03/13/18 22:32 03/13/18 22:34 DC 03/13/18 22:53 0.5 MG Ketorolac Tromethamine (Toradol Inj) 15 mg NOW STAT IV 03/13/18 22:32 03/13/18 22:34 DC 03/13/18 22:54 15 MG ECG Per My Interpretation Indication: abdominal pain Rate (beats per minute): 79 Rhythm: normal sinus Findings: other (normal intervals, normal axis, no ST segment elevation) Change: no significant change (No significant change from November 22, 2017) ED Course 1802: The patient was evaluated in room C12B. A complete history and physical exam was performed. 1813: Zofran 4 mg IV, Tylenol 1000 mg PO, NSS 1000 ml @ 999 mls/hr IV. 2018: Morphine Sulfate 4 mg IV, Zofran 4 mg IV 2049: I reevaluated the patient. Patient also relayed she was at her OB's office at noon today with an HCG level of 8 and given expectant management with follow up on Tuesday. Her pain was too bad, so she came here. 2224: I reevaluated the patient. She is feeling well and resting comfortably. I discussed her results and discharge instructions and she verbalized complete understanding and agreement. 2231: Toradol 15 mg IV, Ativan 0.5 mg PO. 2245: Oxycodone HCl 5 mg 1 homepack PO, Zofran 4 mg 1 homepack PO. Medical Decision Triage Nursing notes reviewed. The patient's presentation and history were concerning for abdominal pain. Differential diagnosis: Etiologies such as appendicitis, diverticulitis, PUD, biliary pathology, UTI, pancreatitis, obstruction, mesenteric ischemia, aortic pathology, infections, inflammatory bowel disease, renal colic, as well as others were entertained. Patient presents with 2 days of fairly constant right inguinal pain with some radiation of the right back. Crampy in nature. Urinary frequency. States several days ago positive test. For prior vaginal deliveries and pregnancies. History of ovarian cyst pain she states feels similar. Nausea and vomiting since then. No fevers. No other abdominal pain. No history of kidney stones reported. No trauma reported. No vaginal bleeding. Fairly specific in the right inguinal area. Basic laboratory studies to exclude hepatitis and pancreas were sent. Pelvic ultrasound to evaluate for ectopic or cyst was completed. Given IV fluid and Tylenol for pain and some Zofran for nausea. No evidence of UTI. Borderline leukocytosis of 10.9. No evidence of acute kidney injury hepatitis or pancreatitis. Ultrasound was unable to visualize the appendix. No evidence of ovarian cyst/torsion. No clearly visualized IUP. HCG is positive. Quantitative level is only 7. She states that her home test was positive on Tuesday 3 days ago. This is concerning with her severe cramping for possible miscarriage. Discussed this with the patient and she did then informed me that she had seen her OB today and had an hCG level of 8 around noon. Given expectant management by OB. Pain is somewhat improved with morphine here. Discussed with patient performing pelvic exam for further evaluation but she declined. Discussed risks and benefits with the patient and will elect for CT scan to rule out other acute intra-abdominal processes. Given the small decline in her HCG this is very concerning again for miscarriage. Cannot positively exclude ectopic given her extremely low hCG, lower suspicion for this however. CT abdomen pelvis is unremarkable. No evidence of ureteral stone causing pain. Given her severe pain will prescribe a short course of oxycodone. Discussed with her using predominantly Tylenol and the oxycodone as needed for breakthrough pain. Discussed with her the importance of follow-up which she acknowledges. Discussed return precautions with her. Discussed with her concerned that this may be an evolving miscarriage. She was somewhat tearful and asked for her home dose of lorazepam which was given. Feel she is stable for discharge at this point and her pain is improved and nausea improved. OB follow up on Tuesday. [place] Drug Monitoring Program Search Results: patient reviewed within database, no issues identified Medication Reconcilliation Current Medication List: was personally reviewed by me Blood Pressure Screening Patient's blood pressure: Normal blood pressure Blood pressure disposition: Did not require urgent referral Impression Primary Impression: Threatened miscarriage Additional Impressions: Abdominal pain during Nausea Scribe Attestation The scribe's documentation has been prepared under my direction and personally reviewed by me in its entirety. I confirm that the note above accurately reflects all work, treatment, procedures, and medical decision making performed by me. Departure Information Dispostion Home / Self-Care Prescriptions Oxycodone Ir (Roxicodone Ir) 5 Mg Tab 1 TAB PO Q6 Y for Pain for 3 Days, #12 TAB Prov: Jordan Stafford M.D. 03/13/18 Ondasetron Odt (ZOFRAN ODT) 4 Mg Tab 4 MG SL Q6H for Nausea, #12 TAB Prov: Jordan Stafford M.D. 03/13/18 Referrals Don Lopez M.D. (PCP) Patient Instructions My [facility] Additional Instructions Please follow-up with your graphite mill operator on Tuesday as already scheduled. Utilize the Zofran to help with nausea. Would continue to utilize predominantly Tylenol to help with pain. If needed you may use oxycodone for breakthrough pain. Given findings here you maybe experiencing a possible miscarriage. If you begin to experience other new or concerning symptoms including but not limited to fever, chest pain, or significant change in your abdominal pain please return here for reevaluation. Otherwise again it is important you follow up the graphite mill operator on Tuesday for further evaluation appear extremely early . Please be careful using any prescription pain medication before driving or using heavy equipment. Problem Qualifiers Additional Impressions: Abdominal pain during Trimester: first trimester Qualified Codes: O26.891 - Other specified related conditions, first trimester; R10.9 - Unspecified abdominal pain
[2018-03-13 22:55] VITALS: BP 135/95; PULSE 77; O2SAT 96
== END 2018-03-13 22:55 | disposition home or self-care (01) ==
LOC: C.EDB 16:46 → C.EDC 22:55
DX: O20.0 Threatened abortion (principal); R10.31 Right lower quadrant pain; R11.0 Nausea; O99.519 Diseases of the respiratory system complicating pregnancy, unspecified trimester; J45.909 Unspecified asthma, uncomplicated; O99.330 Smoking (tobacco) complicating pregnancy, unspecified trimester; F17.200 Nicotine dependence, unspecified, uncomplicated; Z91.040 Latex allergy status; Z88.8 Allergy status to other drugs, medicaments and biological substances; Z79.82 Long term (current) use of aspirin

== ENCOUNTER → 2018-03-13 | Outpatient (CLI) | payer OTHER ==
[~2018-03-13] MED LIST changes: +ASPI81TA28 PO; -ATV/1 PO; -HYDR25CA PO; +LORA-741 PO; +METO25TA56 PO; +ONDA4TAB10 SL; +OXYC-90 PO; +PRLSR20 PO; +RANI150T3 PO
== END | disposition home or self-care (01) ==
LOC: C.LAB1850 12:20
PROVIDERS: ATTEND Obstetrics & Gynecology
DX: Z32.00 Encounter for pregnancy test, result unknown (principal)

== ENCOUNTER 2018-03-16 12:55 | Emergency (ER) | payer OTHER ==
[~2018-03-16] VITALS: Ht 154.9 cm; Wt 98.8 kg
[~2018-03-16 12:55] MED LIST changes: -METO25TA56 PO; +ONDA4TAB10 SL; +OXYC-90 PO; -PRLSR20 PO; +RANI150T3 PO
[2018-03-16 12:57] VITALS: TEMP 36.9; Ht 154.9 cm; Wt 98.8 kg
[2018-03-16] MEDS ORDERED: ONDANSETRON INJ 2 MG/ML 2 ML VIAL IV STA (13:28)
[2018-03-16] MEDS ORDERED: SODIUM CHLORIDE 0.9% 1000ML 2,000 ML IV STA (13:28)
[2018-03-16] MEDS ORDERED: METO25TA56 PO (13:58)
[2018-03-16 14:27] LABS: BASO % 0.4 %; BASO ABS # 0.04 K/uL (0-0.2); EOS ABS # 0.18 K/uL (0-0.5); HEMATOCRIT 43.4 % (37-47); HEMOGLOBIN 14.4 g/dL (12.0-16.0); IG# 0.02 K/uL (0.00-0.02); LYMPH % 23.4 %; MEAN CELL VOLUME 88.2 fL (80-100); MEAN CORPUSCULAR HEMOGLOBIN 29.3 pg (25-34); MEAN CORPUSCULAR HGB CONC 33.2 g/dl (32-36); MEAN PLATELET VOLUME 9.5 fL (7.4-10.4); MONO % 4.6 %; MONO ABS # 0.41 K/uL (0.11-0.59); NEUT % 69.4 %; NEUT ABS # 6.21 K/uL (1.4-6.5); PLATELET COUNT 257 K/uL (130-400); RED CELL DISTRIBUTION WIDTH CV 13.1 % (11.5-14.5); RED CELL DISTRIBUTION WIDTH SD 42.7 fL (36.4-46.3); WHITE BLOOD COUNT 8.96 K/uL (4.8-10.8)
[2018-03-16 14:46] LABS: ALBUMIN 4.1 gm/dl (3.4-5.0); ALKALINE PHOSPHATASE 56 U/L (45-117); ALT/SGPT 21 U/L (12-78); AST/SGOT 13 U/L (15-37); BLOOD UREA NITROGEN 9 mg/dl (7-18); CALCIUM 9.5 mg/dl (8.5-10.1); CARBON DIOXIDE 29 mmol/L (21-32); CREATININE 0.71 mg/dl (0.60-1.20); GLUCOSE 95 mg/dl (70-99); LIPASE 78 U/L (73-393); POTASSIUM 4.3 mmol/L (3.5-5.1); SODIUM 138 mmol/L (136-145); TOTAL PROTEIN 8.1 gm/dl (6.4-8.2)
[2018-03-16] MEDS ORDERED: ACETAMINOPHEN 500 MG TAB ONE (16:23)
[2018-03-16 18:00] VITALS: BP 110/78; PULSE 76; O2SAT 98
--- NOTE | 2018-03-16 18:11 | EMERGENCY ROOM VISIT NOTE ---
History Report prepared by Jossue: Dianna Huff Under the Supervision of: Dr. Kuldeep Barragan D.O. First contact with patient: 13:18 Chief Complaint: SYNCOPE Stated Complaint: SYNCOPE Nursing Triage Summary: PT SEEN HERE ON TUESDAY FOR SPONTANEOUS . THIS AM PT DRANK SOME COFFEE, SHE FELT LIKE HER HEART WAS RACING, WENT TO THE TOILET TO VOMIT AND WOKE UP WITH HER DAUGHTER OVER HER. PT TAKES MULTIPLE MEDS INCLUDING ATIVAN, OXY,ZOFRAN. PT IS TO BE TAKING LOPRESSOR BUT NEVER FILLED RX DUE TO COST History of Present Illness The patient is a 33 year old female who presents to the Emergency Room with complaints of a syncopal episode. This morning, the patient reports after drinking coffee, she started to feel "really weird". She states she felt lightheaded and dizzy, so she went to the bathroom to vomit, when the next thing she knew, she woke up on the bathroom floor. She states she drinks coffee every morning, but maybe drank it later than normal this morning. The patient complains of some "tenderness" in her chest, but states "it's always there". She denies any abdominal pain. She did have a miscarriage 3 days ago and still has some spotty vaginal bleeding. Patient denies any headache, change in vision , neck pain. Patient denies any abdominal pain dysuria urgency or frequency. No vaginal discharge. Vaginal bleeding is now just down to spotting as she recently had a spontaneous miscarriage. Source of History: patient Onset: earlier this morning Position: other (global) Timing: resolved Associated Symptoms: + chest pain ("tenderness"), + nausea, + vomiting, No abdominal pain Review of Systems See HPI for pertinent positives & negatives. A total of 10 systems reviewed and were otherwise negative. Past Medical & Surgical Medical Problems: (1) Anxiety (2) Anxiety disorder (3) Asthma (4) ASTHMA, UNSPECIFIED (5) Depression (6) Depressive disorder (7) (8) Previous Tracheostomy Surgical Problems: (1) Cholecystectomy (2) Hx of cholecystectomy Family History Diabetes mellitus FHx: cancer FHx: heart disease Hypertension Social History Smoking Status: Current Every Day Smoker Alcohol Use: occasionally Drug Use: none Marital Status: single Housing Status: lives with family Occupation Status: unemployed Current/Historical Medications Scheduled Aspirin (Aspirin Ec), 81 MG PO DAILY Metoprolol Tartrate (Lopressor) (Lopressor), 1 TAB PO DAILY Ondasetron Odt (Zofran Odt), 4 MG SL Q6H Scheduled PRN Lorazepam (Ativan), 0.5 MG PO BID PRN for Anxiety Ranitidine Hcl (Zantac), 150 MG PO BID PRN for GI Upset Allergies Coded Allergies: Latex1 -Allergic Contact Dermititis (Verified Allergy, Mild, RASH, 03/16/18 ) Promethazine (Verified Adverse Reaction, Intermediate, ANXIOUS, IRRITABILITY, 03/16/18) Physical Exam Vital Signs Date Time Temp Pulse Resp B/P (MAP) Pulse Ox O2 Delivery O2 Flow Rate FiO2 03/16/18 16:55 86 14 96 03/16/18 16:36 110/70 03/16/18 15:55 66 11 03/16/18 15:25 74 10 03/16/18 14:55 69 14 03/16/18 14:50 77 21 122/87 96 03/16/18 14:49 122/87 03/16/18 14:25 60 18 03/16/18 13:55 68 17 03/16/18 13:45 79 03/16/18 13:08 132/100 03/16/18 13:05 78 133/80 83 130/87 83 132/100 03/16/18 12:57 36.9 81 22 169/115 98 Room Air Physical Exam GENERAL: Sitting up in bed, alert, disheveled, chronically ill-appearing, well nourished, no distress, non-toxic EYE EXAM: normal conjunctiva. PERRL and EOM's intact. OROPHARYNX: no exudate, no erythema, lips, buccal mucosa, and tongue normal and mucous membranes are moist NECK: supple, no nuchal rigidity, no adenopathy, non-tender LUNGS: Clear to auscultation. Normal chest wall mechanics HEART: no murmurs, S1 normal and S2 normal ABDOMEN: abdomen soft, non-tender, normo-active bowel sounds, no masses, no rebound or guarding. BACK: Back is symmetrical on inspection and there is no deformity, no midline tenderness, no CVA tenderness. SKIN: no rashes and no bruising UPPER EXTREMITIES: upper extremities are grossly normal. LOWER EXTREMITIES: No pitting edema. NEURO EXAM: Normal sensorium, cranial nerves II-XII intact, normal speech, no weakness of arms, no weakness of legs. No drift. Finger to nose intact. Gross sensation intact. Medical Decision & Procedures Laboratory Results 03/16/18 14:17 Red Blood Count 4.92, Mean Corpuscular Volume 88.2, Mean Corpuscular Hemoglobin 29.3, Mean Corpuscular Hemoglobin Concent 33.2, Mean Platelet Volume 9.5, Neutrophils (%) (Auto) 69.4, Lymphocytes (%) (Auto) 23.4, Monocytes (%) (Auto) 4.6, Eosinophils (%) (Auto) 2.0, Basophils (%) (Auto) 0.4, Neutrophils # (Auto) 6.21, Lymphocytes # (Auto) 2.10, Monocytes # (Auto) 0.41, Eosinophils # (Auto) 0.18, Basophils # (Auto) 0.04 03/16/18 14:17 Test 03/16/18 14:00 03/16/18 14:17 03/16/18 16:04 Urine Color YELLOW Urine Appearance CLOUDY (CLEAR) Urine pH 7.0 (4.5-7.5) Urine Specific [place] 1.006 (1.000-1.030) Urine Protein NEG (NEG) Urine Glucose (UA) NEG (NEG) Urine Ketones NEG (NEG) Urine Occult Blood 2+ (NEG) Urine Nitrite NEG (NEG) Urine Bilirubin NEG (NEG) Urine Urobilinogen NEG (NEG) Urine Leukocyte Esterase NEG (NEG) Urine WBC (Auto) 1-5 /hpf (0-5) Urine RBC (Auto) 0-4 /hpf (0-4) Urine Hyaline Casts (Auto) 0 /lpf (0-5) Urine Epithelial Cells (Auto) >30 /lpf (0-5) Urine Bacteria (Auto) NEG (NEG) Urine Test NEG (NEG) White Blood Count 8.96 K/uL (4.8-10.8) Red Blood Count 4.92 M/uL (4.2-5.4) Hemoglobin 14.4 g/dL (12.0-16.0) Hematocrit 43.4 % (37-47) Mean Corpuscular Volume 88.2 fL (80-100) Mean Corpuscular Hemoglobin 29.3 pg (25-34) Mean Corpuscular Hemoglobin Concent 33.2 g/dl (32-36) Platelet Count 257 K/uL (130-400) Mean Platelet Volume 9.5 fL (7.4-10.4) Neutrophils (%) (Auto) 69.4 % Lymphocytes (%) (Auto) 23.4 % Monocytes (%) (Auto) 4.6 % Eosinophils (%) (Auto) 2.0 % Basophils (%) (Auto) 0.4 % Neutrophils # (Auto) 6.21 K/uL (1.4-6.5) Lymphocytes # (Auto) 2.10 K/uL (1.2-3.4) Monocytes # (Auto) 0.41 K/uL (0.11-0.59) Eosinophils # (Auto) 0.18 K/uL (0-0.5) Basophils # (Auto) 0.04 K/uL (0-0.2) RDW Standard Deviation 42.7 fL (36.4-46.3) RDW Coefficient of Variation 13.1 % (11.5-14.5) Immature Granulocyte % (Auto) 0.2 % Immature Granulocyte # (Auto) 0.02 K/uL (0.00-0.02) Anion Gap 5.0 mmol/L (3-11) Est Creatinine Clear Calc Drug Dose 122.4 ml/min Estimated GFR () 130.6 Estimated GFR (Non- 112.7 BUN/Creatinine Ratio 12.4 (10-20) Calcium Level 9.5 mg/dl (8.5-10.1) Total Bilirubin 0.3 mg/dl (0.2-1) Direct Bilirubin < 0.1 mg/dl (0-0.2) Aspartate Amino Transf (AST/SGOT) 13 U/L (15-37) Alanine Aminotransferase (ALT/SGPT) 21 U/L (12-78) Alkaline Phosphatase 56 U/L (45-117) Total Protein 8.1 gm/dl (6.4-8.2) Albumin 4.1 gm/dl (3.4-5.0) Lipase 78 U/L (73-393) Bedside Troponin I < 0.030 ng/ml (0-0.045) Laboratory results per my review. Medications Administered Medications (Trade) Dose Ordered Sig/Minh Route Start Time Stop Time Status Last Admin Dose Admin Sodium Chloride 2,000 ml @ 999 mls/hr Q2H1M STAT IV 8/16/18 13:28 03/16/18 15:29 DC 03/16/18 13:28 999 MLS/HR Ondansetron HCl (Zofran Inj) 4 mg NOW STAT IV 03/16/18 13:28 03/16/18 13:30 DC 03/16/18 13:28 4 MG Acetaminophen (Tylenol Tab) 500 mg STK-MED ONCE .ROUTE 03/16/18 16:23 03/16/18 16:24 DC 03/16/18 16:29 500 MG ECG Per My Interpretation Indication: chest pain Rate (beats per minute): 71 Rhythm: sinus rhythm Findings: other (Normal axis, no PVC) ED Course ED COURSE: Vital signs were reviewed and showed the patient is hypertensive. The patients medical record was reviewed The above diagnostic studies were performed and reviewed. ED treatments and interventions as stated above. 1325: The patient was evaluated in room B12B. A complete history and physical examination was performed. 1328: Zofran 4 mg IV, NSS 2000 ml @ 999 mls/hr IV. 1540: I reevaluated the patient. I offered her a CT scan of the head, but she declined. The risks and benefits of CT were explained to the patient. 1623: Tylenol 1600mg IV 1705: Upon reevaluation, the patient is feeling much better. I discussed my findings with the patient and she understands and agrees with the treatment plan. Based on the patients age, coexisting illnesses, exam and lab findings the decision to treat as an outpatient was made. The patient remained stable while under my care. The patient appeared well at the time of discharge. Medical Decision Differential diagnosis includes etiologies such as vasovagal event, infection, hypoglycemia, electrolyte abnormalities, cardiac sources, intracerebral event, toxicologic, neurologic, as well as others were entertained. Patient is a 33-year-old female who presents the ER after drinking coffee and feeling her heart racing. She notes that she went to the bathroom and vomited and passed out. She has no other complaints at this time. She notes that she does have a constant chest heaviness which is been present for the past year and unchanged. No other exacerbating or remitting factors. CBC along with BMP , LFTs, bilirubin, lipase and troponin was negative. UA was negative. was negative. EKG was unremarkable. Patient was updated bedside. I do favor that this likely vasovagal in nature. Patient started to have a mild headache throughout her stay in the ER. I did recommend a CT due to syncopal episode but she declined. Risks and benefits explained. Patient was discharged follow-up with PCP as an outpatient. She does not drive and was instructed not to. Discussed with Pt concerning signs and symptoms to watch out for. Pt was instructed to follow up with their PCP and discussed with the patient their option to return to the ED at anytime for persistent or worsening symptoms. The appropriate anticipatory guidance and out-patient management, including indications for return to the emergency department, were explained at length to the patient and understood. Medication Reconcilliation Current Medication List: was personally reviewed by me Blood Pressure Screening Patient's blood pressure: Normal blood pressure Blood pressure disposition: Did not require urgent referral Impression Primary Impression: Vasovagal syncope Scribe Attestation The scribe's documentation has been prepared under my direction and personally reviewed by me in its entirety. I confirm that the note above accurately reflects all work, treatment, procedures, and medical decision making performed by me. Departure Information Dispostion Home / Self-Care Referrals Don Lopez M.D. (PCP) Patient Instructions ED Syncope Vasovagal, My [facility] Additional Instructions Please follow up with your primary care doctor with in the next 24 hours. Any worsening of your symptoms, please return to the ED immediately. This includes any fevers greater than 100.4, worsening pain, chest pain, shortness breath, persistent nausea, vomiting, unable to eat or drink, or any other concerning signs or symptoms from your standpoint. Please do not drive for the remainder the day.
== END 2018-03-16 18:19 | disposition home or self-care (01) ==
LOC: EDBD 12:55 → C.EDB 12:59
DX: R55 Syncope and collapse (principal); R51 Headache; F17.200 Nicotine dependence, unspecified, uncomplicated; J45.909 Unspecified asthma, uncomplicated; Z79.82 Long term (current) use of aspirin

== ENCOUNTER 2019-01-03 09:17 | Inpatient (IN) ==
[2019-01-03] MEDS ORDERED: PENICILLIN G POTASSIUM 3 MU in DEXTROSE 5% 100 ML IV PRN (09:26)
[2019-01-03] MEDS ORDERED: OXYTOCIN 30 UNITS/500 ML BAG IV PRN ×3 (09:26→15:07)
[2019-01-03] MEDS: LACTATED RINGER'S 1,000 ML IV PRN ×2 (09:30→10:34)
[2019-01-03] MEDS ORDERED: PENICILLIN G POTASSIUM 6 MU in DEXTROSE 5% 250 ML IV STA (09:39)
[2019-01-03 09:44] LABS: Hematocrit (blood only) 39.6 % (37-47); Hemoglobin 13.5 g/dL (12.0-16.0); Mean Corpuscular Volume 86.3 fL (80-100); Mean Platelet Volume 9.5 fL (7.4-10.4); Platelet Count 209 K/uL (130-400); RDW Coefficient of Variation 15.6 % (11.5-14.5); RDW Standard Deviation 49.3 fL (36.4-46.3); Red Blood Count 4.59 M/uL (4.2-5.4); White Blood Count 9.98 K/uL (4.8-10.8)
--- NOTE | 2019-01-03 09:48 | History & Physical Report ---
Date of Service January 03, 2019 Assessment & Plan (1) 40 weeks gestation of : Rossi Scott is a 33-year-old female who presents at 40+2 VERA 01/01/2019 with contractions and leakage of fluid for evaluation of labor Group B strep positive, rubella immune, blood type A+, VDRL nonreactive Active tobacco use during 0.5 to 1 pack/day She did not take a vitamin during She has a history of asthma and migraines. Also has a history of anxiety/depression/PTSD which she does not take medication for. Previously took clonazepam, has not been on that and "a long time " Has a history of premature atrial contractions and palpitations, has not taking a beta-navdeep during this . Has not taken aspirin during this . Has history of oral HSV, denies new lesions and no vaginal active lesions Has been diagnosed with right carpal tunnel, Phalen's positive on exam worsened by . Continue to follow. /-2 on admit exam Admit for labor. Penicillin 6,000,000 units now, 3,000,000 units every 4 hours for group B strep positive History of Present Illness Primary Care Provider: Don Lopez MD Rossi Scott is a 33-year-old 6 para 4 who presents with contractions and leakage of fluid. She is group B strep positive, rubella immune, VDRL negative, blood type A+. She reports that she had a sudden loss of fluid at 5 AM this morning followed by intense, painful contractions with mild bleeding. She is a past medical history of migraines, asthma, oral HSV, tobacco abuse, atrial premature contractions, and depression. She has smoked 1/2 pack/day to 1 pack/day throughout her . Denies alcohol use. She has allergies to latex and promethazine During she has intermittently used Tylenol and Tums. She has not been taking a multivitamin. SHe has a history of palpitations, she has not been using a beta-navdeep or aspirin during . Endorses some shortness of breath from allergies last few weeks, she has been using her albuterol inhaler for 5 days. Endorses diffuse joint and muscle aches for several days Denies sinus region today, had some sinus congestion last week. Denies ear pain. Denies fever, chills, night sweats. Has had some alternating diarrhea and constipation through , some diarrhea yesterday and constipated today. No abdominal pain other than her contractions. She endorses some slight rash, numbness, tingling in her right palm which travels up to her right elbow. She has been told that this is due to carpal tunnel in the past. She has no history of clotting, bleeding problems or strokes. Family history of heart attacks. She is 3/80/-2 on admission. Allergies Allergy/AdvReac Type Severity Reaction Status Date / Time latex Allergy Intermediate RASH Verified 11/28/18 16:16 promethazine AdvReac Intermediate ANXIOUS, Verified 11/28/18 16:16 IRRITABILITY Home Medications Home Medications Medication Instructions Recorded Confirmed Type acetaminophen [Tylenol] 925 mg PO Q6H PRN 01/03/19 01/03/19 History calcium carbonate [Tums] 200 mg PO QID 01/03/19 01/03/19 History Patient History Social History Preferred Language: Latvian Communication Ability: Effective Visual Impairment: No Limitations Hearing Ability: Normal Candy Dipper Hand Required: No Beliefs That Will Affect Care: None marital status: Single Current Living Situation: Family Current Living Situation Comment: lives with 3 children, a step daughter and boyfriend current occupational status: unemployed Other Information That Helps Us Care for You: No Feels Safe at Home: Yes Safety Concerns: Feels Safe At This Time Smoking Status: Current every day smoker Tobacco Type: cigarettes Cigarettes Per Day: 10-20 Second Hand Exposure: Yes Hx Alcohol Use: No Hx Substance Use: No Review of Systems + body aches and + fatigue; no fever, no chills, no sweats and no weakness + corrective lenses; no blind spots, no diplopia, not seeing flashes and no worsening vision no ear pain, no ear discharge, no dizziness, no nasal congestion and no nasal discharge + dyspnea; no cough, no chest congestion, no change in sputum, no dyspnea on exertion, no hemoptysis, no pain on inspiration, no pain with cough, no sputum production and no wheezing + dyspnea and + edema; no chest pain, no chest pain at rest, no chest pain with activity, no radiating jaw, neck or arm pain, no dyspnea at rest, no orthopnea, no lightheadedness and no syncope + constipation and + diarrhea/loose stools; no abdominal pain, no nausea, no vomiting and no blood in stools no dysuria and no difficulty urinating + back pain, + joint pain, + stiffness and + body aches; no muscle weakness no rash, no lesions, no new lesions and no changing lesions + loss of sensation, + tingling, + numbness and + paresthesia; no gait abnormality, no localized weakness and no generalized weakness + depression and + anxiety + fatigue Physical Exam Physical Exam: General: A&Ox3. NAD. Cooperative. HEENT: Atraumatic, normocephalic. Pulm: Mild and expiratory posterior wheeze, otherwise CTAB A&P. -rales, - rhonchi. Symmetrical chest rise. No increase work of breathing. No respiratory distress. Cardiac: RRR, -mrg. Radial pulses intact and symmetrical. Abdominal: Distention consistent with . Nontender. No right upper quadrant tenderness. Extremity: Mild swelling of the distal extremities bilaterally. No calf tenderness, asymmetry, warmth, erythema. Homans negative bilaterally. Right hand and forearm with some numbness, tingling, paresthesia. Most prominent in digits 2, 3, 4. Tinel tap negative, Phalen's test strongly positive. She is diffusely hyperreflexic, biceps DTR 3+ and crosses the wrist lines bilaterally. Neurologic: Pupils equal and reactive to light bilaterally. Extraocular movements intact. Visual acuity intact. No facial asymmetry. No dysarthria. DTR as noted above. 5/5 strength in upper extremities bilaterally, ankle dorsiflexion/plantar flexion intact with 5/5 strength. Monitoring External Monitor Category 1 tracing. Baseline approximately 140 bpm. Moderate variability. No decelerations noted. Tocodynamometer No regular contractions appreciated on toco Supervising Physician Co-Signing Physician Notes Patient seen and evaluated and agree with the above findings and plan Resident Activity Tracking Resident Involvement: Resident Care Provided Care Provided: Adult Hospital Medicine
[2019-01-03] MEDS ORDERED: fentaNYL citrate 100 MCG/2 ML VIAL ONE (09:50)
[2019-01-03] MEDS ORDERED: BUPIVACAINE 0.25% 30 ML VIAL ONE (09:50)
[2019-01-03] MEDS ORDERED: ePHEDrine sulfate 50 MG/ML AMP ONE (09:50)
[2019-01-03] MEDS ORDERED: fentaNYL 2MCG/ML ROPIV 1.25MG/ML 100 ML BAG EPI ONE (09:51)
[2019-01-03 09:58] LABS: Mean Corpuscular Hgb Conc 34.1 g/dL (32-36)
--- NOTE | 2019-01-03 10:41 | Anesthesiology Consultation ---
Date of Service January 03, 2019 Assessment & Plan Chart Review Chart Review: Patient NOT seen in Pre Admission Testing and Acceptable Risk for Labor Epidural Consults Requested medical & cardiac Pulmonary ASA ASA2 Proposed Anesthesia Anesthesia Type: Labor Epidural Risk / Benefits Reviewed With: PT / POA / Parent / Guardian, Accepts Plan and Informed Consent Obtained History Height/Weight Height: 1.57 m Weight: 101.605 kg Allergies Allergy/AdvReac Type Severity Reaction Status Date / Time latex Allergy Intermediate RASH Verified 11/28/18 16:16 promethazine AdvReac Intermediate ANXIOUS, Verified 11/28/18 16:16 IRRITABILITY Medications Home Medications Medication Instructions Recorded Confirmed Last Taken No Known Home Medications 11/28/18 11/28/18 Unknown Active Medications Generic Name Dose Route Start Last Admin Trade Name Freq PRN Reason Stop Dose Admin Lactated Ringer's 1,000 mls @ 125 mls/hr 01/03/19 09:26 01/03/19 10:34 Lr IV 01/05/19 09:25 125 mls/hr .Q8H PRN Administration L&D Protocol Protocol NPO Date Last Intake of Fluids: 01/03/19 Time Last Intake of Fluids: 10:35 Date Last Intake of Solids: 01/02/19 Time Last Intake of Solids: 19:00 Past Medical History Medical History Migraine Sciatica Decreased movement affecting management of in third trimester Supervision of other normal (Acute) Asthma (Chronic) Anxiety (Chronic) Depression (Chronic) Palpitation (Acute) On occasions Exercise / Class Metabolic Activity II 4-5 Yardwork/Stairs/Walk up hill Past Surgical History Surgical History Hx of cholecystectomy Past Anesthesia History No Hx of Anesthesia Complications and No Family Hx of Anesthesia Complications History of PONV No Hx of Motion Sickness and History of PONV Social History Smoking Status: Current every day smoker tobacco type: cigarettes Smoking cigarettes per day: 10-20 Hx Alcohol Use: No Hx Substance Use: No substance use type: does not use Substance Use Type Other:: 7 years ago patient reports she "used pills and herion for 2 months" Physical Exam Vital Signs Last Vital Signs Pulse 84 01/03/19 10:35 Pulse Ox 100 01/03/19 10:35 ENMT Mouth: no TMJ abnormality and no TMJ clicking Thyromental Distance: > or= 3.5 Finger Breadths Mallampati Class: II Neck normal visual inspection; neck extension not limited Respiratory Auscultation: lungs clear to auscultation bilaterally Cardiovascular Rate/Rhythm: regular rate and regular rhythm Psychiatric Orientation: alert and oriented x 3 Testing Laboratory Results Laboratory Tests 01/03/19 09:33 WBC 9.98 Hgb 13.5 Hct 39.6 Plt Count 209
[2019-01-03] MEDS ORDERED: NALOXONE HCL 0.4 MG/1 ML VIAL/CARP IV PRN (11:15)
[2019-01-03] MEDS ORDERED: NALOXONE HCL 1 MG in SODIUM CHLORIDE 0.9% 1000ML 1,000 ML IV PRN (11:15)
[2019-01-03] MEDS ORDERED: ONDANSETRON INJ 2 MG/ML 2 ML VIAL IV PRN (11:15)
[2019-01-03] MEDS ORDERED: NALBUPHINE HCL INJ 10 MG/ML AMP IV PRN (11:15)
[2019-01-03] MEDS ORDERED: ePHEDrine sulfate 50 MG/ML AMP IV PRN (11:15)
[2019-01-03] MEDS ORDERED: DiphenhydrAMINE HCL 50 MG/ML VIAL IV PRN (11:15)
[2019-01-03] MEDS ORDERED: fentaNYL 2MCG/ML ROPIV 1.25MG/ML 100 ML BAG EPI PRN (11:15)
[2019-01-03] MEDS ORDERED: ONDANSETRON INJ 2 MG/ML 2 ML VIAL ONE (11:35)
[2019-01-03] MEDS ORDERED: SUPERCREAM 0.870% 15 GM JAR EXT PRN (15:07)
[2019-01-03] MEDS ORDERED: DIPHTHERIA/TETANUS/PERTUSSIS 0.5 ML SYR/VIAL IM ONE (15:07)
[2019-01-03] MEDS ORDERED: HYDROCORTISONE ACETATE 25 MG SUPP PR PRN (15:07)
[2019-01-03] MEDS ORDERED: BENZOCAINE 20% AER SPR 82.5 GM CAN EXT PRN (15:07)
[2019-01-03] MEDS ORDERED: BISACODYL 10 MG SUPP PR PRN (15:07)
--- NOTE | 2019-01-03 15:35 | Delivery Summary ---
DATE OF OPERATION: 01/03/2019 PROCEDURE: Normal spontaneous vaginal delivery. SURGEON: Nabeel Bravo MD PREOPERATIVE DIAGNOSES: 1. Single intrauterine at 40 weeks 2 days gestational age. 2. Spontaneous rupture of membranes. 3. GBS positive. 4. History of tobacco use during . 5. Asthma. POSTOPERATIVE DIAGNOSES: 1. Single intrauterine at 40 weeks 2 days gestational age. 2. Spontaneous rupture of membranes. 3. GBS positive. 4. History of tobacco use during . 5. Asthma. 6. Delivered. ESTIMATED BLOOD LOSS: 100 mL. DRAINS: None. FLUIDS: Continuous lactated ringer. URINE OUTPUT: Not measured. COMPLICATIONS: None. FINDINGS: Viable female infant with weight pending and Apgars of 8 and 9 at 1 and 5 minutes respectively. INDICATIONS: Ms. Scott is a 33-year-old G6, P4, admitted at 40 weeks 2 days gestational age with VERA of 01/01/2019. The patient presented with spontaneous rupture of membranes and contractions increasing in frequency and intensity. First evaluation, she was found to be 3 cm dilated, 80% effaced, -1 station. Fetus cephalic by sutures. The patient was admitted for spontaneous rupture and likely labor. She received epidural anesthesia after receiving the epidural, her contractions spaced out to about every 10-12 minutes and the patient was started on oxytocin per regular protocol. The patient then progressed in labor without progress in labor without issue and progressed to complete-complete +1 at which time she felt the urge to push. DESCRIPTION OF PROCEDURE: The patient progressed to 10 cm dilated, 100% effaced, +1 station, pushed over intact perineum with epidural anesthesia to deliver a viable female with weight and Apgars as above. Head of the delivered in JACKSON position and rest into right transverse. No nuchal cord was noted. Body and shoulders quickly followed. The was noted to be vigorous upon delivery. A 1-minute delayed cord clamping was initiated at which the cord was double clamped and cut. was left in the maternal abdomen as it was noted to be vigorous. Cord blood was then obtained. Attention was then turned to delivery of the placenta which was delivered intact with 3-vessel cord with gentle cord traction. Inspection of the perineum, cervix, and vagina noted no lacerations. Both mother and were stable in the immediate post-delivery. I attest to the content of the Intraoperative Record and any orders documented therein. Any exception s are noted below.
--- NOTE | 2019-01-03 17:39 | Anesthesia Procedure Note ---
Date of Service January 03, 2019 Anesthesia Post Epidural Note Vital Signs Vital Signs: Temp Pulse Resp BP Pulse Ox 01/03/19 17:30 83 116/59 L 01/03/19 17:15 82 109/55 L 01/03/19 17:00 86 112/61 01/03/19 16:45 87 113/61 01/03/19 16:30 74 107/63 01/03/19 16:16 71 110/78 01/03/19 16:00 76 18 108/78 01/03/19 15:45 82 18 103/68 01/03/19 15:30 83 18 127/70 01/03/19 15:15 76 18 124/68 01/03/19 15:00 90 18 131/72 98 01/03/19 14:55 93 H 98 01/03/19 14:50 117 H 87 L 01/03/19 14:46 94 H 132/71 01/03/19 14:45 102 H 96 01/03/19 14:40 92 H 96 01/03/19 14:35 83 96 01/03/19 14:31 76 130/65 01/03/19 14:30 80 22 96 01/03/19 14:25 82 97 01/03/19 14:20 77 95 01/03/19 14:17 77 127/67 01/03/19 14:15 80 96 01/03/19 14:10 84 95 01/03/19 14:05 80 97 01/03/19 14:01 82 112/59 L 01/03/19 14:00 81 16 95 01/03/19 13:55 80 97 01/03/19 13:50 80 96 01/03/19 13:47 75 109/55 L 01/03/19 13:45 78 96 01/03/19 13:40 81 96 01/03/19 13:35 80 97 01/03/19 13:31 85 103/57 L 01/03/19 13:30 92 H 16 97 01/03/19 13:25 80 96 01/03/19 13:20 76 97 01/03/19 13:16 78 105/57 L 01/03/19 13:15 80 97 01/03/19 13:10 80 97 01/03/19 13:05 83 98 01/03/19 13:02 77 100/52 L 01/03/19 13:00 36.8 C 78 16 97 01/03/19 12:55 79 96 01/03/19 12:50 77 95 01/03/19 12:45 80 96 01/03/19 12:43 101 H 127/65 01/03/19 12:40 87 96 01/03/19 12:37 111 H 117/57 L 01/03/19 12:35 91 H 97 01/03/19 12:31 82 108/55 L 01/03/19 12:30 84 16 95 01/03/19 12:26 78 108/56 L 01/03/19 12:25 78 94 01/03/19 12:21 80 107/57 L 01/03/19 12:20 82 93 01/03/19 12:16 77 107/52 L 01/03/19 12:15 83 95 01/03/19 12:11 75 107/57 L 01/03/19 12:10 73 95 01/03/19 12:06 78 101/55 L 01/03/19 12:05 78 94 01/03/19 12:01 78 98/53 L 01/03/19 12:00 79 16 96 01/03/19 11:57 75 100/53 L 01/03/19 11:55 76 94 01/03/19 11:51 75 99/55 L 01/03/19 11:50 76 95 01/03/19 11:46 79 101/50 L 01/03/19 11:45 79 94 01/03/19 11:40 78 99/58 L 95 01/03/19 11:38 83 97/52 L 01/03/19 11:36 82 105/59 L 01/03/19 11:35 82 96 01/03/19 11:34 84 106/57 L 01/03/19 11:32 82 101/54 L 01/03/19 11:30 81 18 110/65 98 01/03/19 11:28 88 92/54 L 01/03/19 11:26 83 111/57 L 01/03/19 11:25 83 98 01/03/19 11:24 88 112/55 L 01/03/19 11:22 91 H 118/57 L 01/03/19 11:20 85 112/56 L 98 06/05/19 11:18 94 H 120/67 06/05/19 11:17 96 H 94 01/03/19 11:16 87 126/67 01/03/19 11:15 97 H 16 98 01/03/19 11:14 93 H 115/62 01/03/19 11:12 95 H 119/66 01/03/19 11:10 100 H 98 01/03/19 11:09 90 123/63 01/03/19 11:08 36.8 C 101 H 123/64 01/03/19 11:06 120 H 121/64 01/03/19 11:05 125 H 99 01/03/19 11:00 90 100 01/03/19 10:55 101 H 99 01/03/19 10:50 99 H 97 01/03/19 10:45 95 H 100 01/03/19 10:40 92 H 98 01/03/19 10:35 84 100 01/03/19 10:30 88 99 01/03/19 10:25 88 99 01/03/19 10:20 93 H 100 01/03/19 10:15 95 H 100 01/03/19 09:31 36.9 C Notes Mental Status: alert / awake / arousable Patient Amnestic to Procedure: No Nausea / Vomiting: adequately controlled Pain: adequately controlled Airway Patency, RR, SpO2: stable & adequate BP & HR: stable & adequate Hydration State: stable & adequate Anesthetic Complications: no major complications apparent Epidural: Removed without complications and With tip intact Notes: Doing well. No complaints. VSS. Epidural site looks clean, dry without signs or edema or erythema.
[2019-01-03] MEDS: IBUPROFEN 600 MG TAB PO PRN ×2 (17:58→22:06)
[2019-01-03] MEDS: DOCUSATE SODIUM 100 MG CAP PO SCH (21:18)
[2019-01-03] MEDS: NICOTINE 7 MG/24 HR TDSY TD SCH ×2 (21:30→21:34)
[2019-01-04] MEDS: ACETAMINOPHEN 325 MG TAB PO PRN ×2 (00:02→12:16)
--- NOTE | 2019-01-04 06:30 | Obstetrical Progress Note ---
Date of Service <Kp Lema MD - Last Filed: 01/04/19 06:30> January 04, 2019 Assessment & Plan <Kp Lema MD - Last Filed: 01/04/19 06:30> (1) Vaginal delivery: Rossi is a 33yo F who presented at 40+2 in labor now s/p PPD#1 - She is GBS+ and recieved only one dose of PCN prior to delivery - Blood type A+. - Tobacco use during , no vitamin during - Feels well today. Eating well, voiding well, ambulating well. - Pain moderately well controlled with ibuprofen 600mg Q4H PRN. - Routine care - After discharge will have [address] Bravo. (2) 40 weeks gestation of : Subjective <Kp Lema MD - Last Filed: 01/04/19 06:30> Ambulation: ambulating normally Voiding: no voiding problems Passing Gas:: Yes Diet Tolerance:: regular diet Lochia:: Moderate Feeding Type:: bottle feeding (switched from breast feeding due to severe cramping/pain) Current Pain Level(1-10): 4 (mostly in her back) Review of Systems Denies fever, chills, sweats Denies shortness of breath, difficulty breathing, chest pain, palpitations, chest pressure. Denies breast pain. Denies dysuria. Denies headache. Physical Exam <Kp Lema MD - Last Filed: 01/04/19 06:30> Vital Signs (Past 24 Hours) Last Vital Signs Temp 36.9 C 01/04/19 04:35 Pulse 78 01/04/19 04:35 Resp 20 01/04/19 04:35 BP 116/75 01/04/19 04:35 Pulse Ox 96 01/04/19 04:35 General: Alert, oriented. No acute distress. Cardiac: Regular rate and rhythm, no murmurs/rubs/gallops. Respiratory: Clear to auscultation anterior and posteriorly, no wheezes/rales/rhonchi. No increased work of breathing. Symmetrical chest rise. No respiratory distress. Abdomen: Soft, nontender, nondistended. Bowel sounds present. Uterus: Uterine fundus firm, palpable 1cm below umbilicus, slightly levo rotated Lower Extremities: No lower extremity edema or swelling. No deep calf pain. Arleen's negative bilaterally. <Nabeel Bravo MD - Last Filed: 01/08/19 07:20> Co-Signing Physician Notes Patient seen and agree with the above findings and plan Resident Activity Tracking <Kp Lema MD - Last Filed: 01/04/19 06:30> Resident Involvement: Resident Care Provided Care Provided: Adult Hospital Medicine
[2019-01-04 06:32] LABS: Hematocrit (blood only) 38.3 % (37-47); Hemoglobin 12.7 g/dL (12.0-16.0)
[2019-01-04] MEDS: DOCUSATE SODIUM 100 MG CAP PO SCH ×2 (08:10→21:00)
[2019-01-04] MEDS: SERTRALINE HCL 100 MG TABLET PO SCH (08:11)
[2019-01-04] MEDS: PRENATAL VITAMIN 1 TAB PO SCH (08:11)
[2019-01-04] MEDS ORDERED: MEDROXYPROGESTERONE ACETATE 150 MG/ML VIAL IM STA (08:44)
[2019-01-04] MEDS: IBUPROFEN 600 MG TAB PO PRN ×3 (09:06→23:04)
[2019-01-04] MEDS ORDERED: BISACODYL 5 MG TABEC PO SCH (20:00)
[2019-01-05] MEDS: ACETAMINOPHEN 325 MG TAB PO PRN ×2 (03:41→13:08)
[2019-01-05] MEDS: IBUPROFEN 600 MG TAB PO PRN ×3 (05:16→15:08)
[2019-01-05] MEDS ORDERED: LORazepam 0.5 MG TAB PO STA (05:43)
--- NOTE | 2019-01-05 06:30 | Obstetrical Progress Note ---
Date of Service January 05, 2019 Assessment & Plan (1) Vaginal delivery: Routine pp care thus far and had been recovering normally from this respect. Was planned for D/C home today. Present on Admission?: Yes (2) Chest pain: Patient with normal vital signs, but clinical picture of acute lower R chest pain with worsening on inspiration. In setting of obese patient need to r/o PE; chest CT ordered and patient on pulse ox monitor for now. Also checking PIH labs given location of pain in liver area with accompanying nausea, despite normal BP. Further, patient with known h/o anxiety and initially felt "panicky." Recent ativan dose not yet likely taken effect. Could certainly be panic attack. Pain medication ordered and recommended to patient to ease her current acute discomfort. Chest pain type: chest pain on breathing Qualified Code(s): R07.1 - Chest pain on breathing; R07.81 - Pleurodynia Present on Admission?: No Subjective Patient reported feeling panicky to RN earlier this morning. Takes ativan at home and was offered a dose which I ordered; this was just recently administered. Patient now c/o acute RUQ and lower R chest pain, worse with inspiration and very sharp. No BARAJAS, vis change, edema change, calf pain. Is noted to have nausea and reports emesis 45min ago (nurse not able to witness any episodes of emesis). Had diarrhea yesterday but normal stool and gas passage today. Physical Exam Vital Signs (Past 24 Hours) Last Vital Signs Temp 36.7 C 01/05/19 04:50 Pulse 78 01/05/19 04:50 Resp 20 01/05/19 04:50 BP 128/87 01/05/19 04:50 Pulse Ox 98 01/05/19 04:50 Patient found in knee-chest position, breathing rapidly and tearful. Points to RUQ and R flank when asked where pain is. Able to reposition herself to semi-fowlers when asked. Gen: tearful, acutely distressed. Cor: RRR, not tachycardic. Lungs: CTAB, however patient winces and interrupts inspiration c/o sharp R lower chest/back pain. Abd: TTP RUQ. No palpable liver edge. Pain not worsened with inspiration during palpation. Fundus: Firm at u. Calves: Neg homans, equal trace edema, no palpable calf nodule, DTR 2+ bilaterally
[2019-01-05] MEDS ORDERED: OXYCODONE HCL IR 5 MG TAB (IMMEDIATE RELEASE) PO STA (06:47)
[2019-01-05 07:06] LABS: Hemoglobin 13.4 g/dL (12.0-16.0); Mean Corpuscular Hgb Conc 33.5 g/dL (32-36); Mean Corpuscular Volume 86.4 fL (80-100); Mean Platelet Volume 9.3 fL (7.4-10.4); Platelet Count 186 K/uL (130-400); RDW Coefficient of Variation 15.4 % (11.5-14.5); RDW Standard Deviation 48.8 fL (36.4-46.3); Red Blood Count 4.63 M/uL (4.2-5.4)
[2019-01-05 07:23] LABS: Albumin Level 2.7 gm/dl (3.4-5.0); Calcium 8.6 mg/dl (8.5-10.1); Creatinine Clr Calc Pharmacy 140.9 ml/min; Est GFR (African American) 136.8; Est GFR (Non-African American) 118.1; Potassium 3.9 mmol/L (3.5-5.1)
[2019-01-05 07:25] LABS: Albumin Globulin Ratio 0.6 (0.9-2); Bilirubin,Total 0.3 mg/dl (0.2-1); Globulin 4.2 gm/dl (2.5-4.0); Total Protein 6.9 gm/dl (6.4-8.2)
[2019-01-05] MEDS ORDERED: IOVERSOL 100ml IV PRN (08:57)
--- NOTE | 2019-01-05 09:14 | CT Scan Report ---
CT ANGIOGRAM OF THE CHEST CLINICAL HISTORY: Pleuritic chest pain. patient. COMPARISON STUDY: Chest CT scans dated 11/22/2017 and 04/05/2009. TECHNIQUE: Following the IV administration of 93 cc of Optiray 320, CT angiogram of the chest was per formed from the upper abdomen to the thoracic inlet utilizing the pulmonary embolus protocol. Images are reviewed in the axial, sagittal, and coronal planes. 3-D MIPS images are created and assessed. IV contrast was administered without complication. A dose lowering technique was utilized adhering to the principles of ALARA. CT DOSE: 614.22 mGy.cm FINDINGS: Thyroid: Imaged portions of the thyroid gland are normal in size and attenuation. Thoracic aorta: The thoracic aorta is normal in caliber and demonstrates bovine variant arch anatomy. No dissection is seen. Pulmonary vasculature: The pulmonary trunk is normal in caliber. There are no filling defects identif ied in main, lobar, or segmental pulmonary branches to suggest pulmonary embolus. Heart: The heart is normal in size and without pericardial effusion. Lungs and pleural spaces: There are trace pleural effusions and dependent atelectasis. No airspace co nsolidation or pleural effusion is identified. Scattered calcified granulomas are noted. The trachea and central airways are clear. A 4 mm pleural-based nodule in the right middle lobe along the minor f issure seen on image #108 is unchanged from 2009 and of doubtful significance. Mediastinum: There is no mediastinal lymphadenopathy. Estefani: No hilar adenopathy is seen. There are calcified hilar nodes. Axillae: There is no axillary lymphadenopathy. Upper abdomen: There is a tiny hiatal hernia. There are scattered calcified hepatic and splenic granu kamari. Partially visualized upper abdominal viscera is otherwise within normal limits. Skeletal structures: No lytic or blastic bony lesions are seen. IMPRESSION: 1. There is no evidence of pulmonary embolus in the main, lobar, or segmental pulmonary arteries. 2. Trace pleural effusions and dependent atelectasis. Electronically signed by: Justin Finley M.D. 01/05/2019 9:13 AM
[2019-01-05] MEDS: SERTRALINE HCL 100 MG TABLET PO SCH (09:38)
[2019-01-05] MEDS: NICOTINE 7 MG/24 HR TDSY TD SCH (09:38)
[2019-01-05] MEDS: PRENATAL VITAMIN 1 TAB PO SCH (09:38)
[2019-01-05] MEDS: DOCUSATE SODIUM 100 MG CAP PO SCH ×2 (09:39→13:11)
--- NOTE | 2019-01-05 10:48 | Communication Note ---
Date of Service: January 05, 2019 Patient's labs are all normal. chest CTA r/o for pe. Patient continues to have RUQ discomfort. hx of ccx in the past. nl wbc for pp labor. Will now get ruq us and lipase amylase. Patient notes pain under the right rib cage in the midline of right. She also notes pain in the corresponding area in the right back. If is possible it is MS. Will await those results.
[2019-01-05 10:57] LABS: Amylase 31 U/L (25-115)
--- NOTE | 2019-01-05 11:35 | Ultrasound Report ---
APPENDIX ULTRASOUND HISTORY: Right lower quadrant pain. COMPARISON: Abdomen and pelvis CT 03/13/2018. FINDINGS: Transabdominal scanning of the right lower quadrant was performed. The appendix was not identified. T here are no fluid collections or masses within the right lower quadrant. IMPRESSION: The appendix was not identified. Electronically signed by: Phan Steinberg M.D. 01/05/2019 11:33 AM
--- NOTE | 2019-01-05 14:54 | Ultrasound Report ---
ABDOMINAL ULTRASOUND, RIGHT UPPER QUADRANT HISTORY: Right upper quadrant abdominal pain. COMPARISON: CT of the abdomen and pelvis March 13, 2018. FINDINGS: The liver is sonographically normal. There is no biliary ductal dilatation status post chol ecystectomy. The common bile duct measures 5 mm in caliber. The pancreas is within normal limits. The re is no right hydronephrosis. IMPRESSION: No significant abnormality identified within the right upper quadrant status post cholecystectomy. Electronically signed by: Lamont Hill M.D. 01/05/2019 2:52 PM
--- NOTE | 2019-01-05 15:21 | Communication Note ---
Date of Service: January 05, 2019 Patient now feeling better since moving bowels. CT neg, ruq and rlq us are negative. Patient feels comfortable going home. Precautions reviewed. Will f/ u in 6 weeks in the offcie.
== END 2019-01-05 16:40 | disposition home or self-care (01) | DRG 807 ==
LOC: OPB 09:17 → 4S1 09:20 → 4S2 17:55

== ENCOUNTER 2023-09-19 16:02 | Inpatient (IN) ==
--- NOTE | 2023-09-19 16:49 | ED Triage Note ---
Date of Service September 19, 2023 Provider in Triage Author: Maddie Coello History of Present Illness This patient was briefly evaluated while in triage. An abbreviated physical exam was performed. This patient is a 38-year-old Female who presents to the ED for evaluation of diffuse abdominal pain that extends into her back. Pain with sitting, standing. Pt took tylenol and ibuprofen at home with no relief. Denies fever, nausea/vomiting. Physical Exam Initial orders for labs and / or imaging were placed and patient was placed in the waiting area until a bed is available. Please see further documentation for the full ED course.
[2023-09-19] MEDS: KETOROLAC TROMETHAMINE 15 MG/ML VIAL IV ONE (19:37)
[2023-09-19] MEDS: KETOROLAC TROMETHAMINE 15 MG/ML VIAL ONE (19:37)
[2023-09-19] MEDS: SODIUM CHLORIDE 0.9% 1,000 ML IV ONE (19:38)
[2023-09-19 19:58] LABS: Appearance Urine Clear (Clear); Bilirubin Urine Negative (Negative); Blood Urine Negative (Negative); Color Urine Yellow; Glucose Urine UA Negative (Negative); Ketones Urine Negative (Negative); Leukocyte Esterase Urine Negative (Negative); Nitrite Urine Negative (Negative); Protein Urine Negative (Negative); Specific Gravity Urine 1.008 (1.000-1.030); Urobilinogen Urine Negative (Negative); pH Urine 6.5 (4.5-7.5)
[2023-09-19 20:01] LABS: Basophils # (auto) 0.05 K/uL (0.00-0.20); Basophils % (auto) 0.3 %; Hematocrit (blood only) 40.8 % (37.0-47.0); Hemoglobin 13.9 g/dl (12.0-16.0); Immature Granulocytes # (auto) 0.08 K/uL (0.01-0.20); Immature Granulocytes % (auto) 0.4 %; Lymphocytes # (auto) 2.66 K/uL (1.20-3.40); Lymphocytes % (auto) 14.1 %; Mean Corpuscular Hemoglobin 29.4 pg (25.0-34.0); Mean Corpuscular Hgb Conc 34.1 g/dL (32.0-36.0); Mean Corpuscular Volume 86.3 fL (80.0-100.0); Monocytes # (auto) 1.08 K/uL (0.11-0.59); Monocytes % (auto) 5.7 %; Neutrophils # (auto) 14.94 K/uL (1.40-6.50); Neutrophils % (auto) 79.5 %; Platelet Count 312 K/uL (130-400); RDW Standard Deviation 44.1 fL (36.4-46.3); Red Blood Count 4.73 M/uL (4.20-5.40); White Blood Count 18.81 K/ul (4.8-10.8)
--- NOTE | 2023-09-19 20:14 | CT Scan Report ---
Exam(s): CT ABDOMEN + PELVIS Without Contrast EXAM: CT Abdomen and Pelvis Without Intravenous Contrast CLINICAL HISTORY: Reason for exam: abdominal pain; vomiting. TECHNIQUE: Axial computed tomography images of the abdomen and pelvis without intravenous contrast. CTDI is 27.94 mGy and DLP is 1426.82 mGy-cm. Automated exposure control was utilized for the study. A dose lowering technique was utilized adhering to the principles of ALARA. COMPARISON: No relevant prior studies available. FINDINGS: Lung bases: Unremarkable. No mass. No consolidation. ABDOMEN: Liver: Hepatic steatosis. Gallbladder and bile ducts: See below. Pancreas: Unremarkable. No ductal dilation. Spleen: Calcified splenic granulomata. Cholecystectomy. Adrenals: Unremarkable. No mass. Kidneys and ureters: Unremarkable. No hydronephrosis or nephrolithiasis. Stomach and bowel: Diverticulosis, without acute diverticulitis. No bowel obstruction. No free air. PELVIS: Appendix: Mild appendicitis, consisting of a distended appendix with mild surrounding inflammation. No perforation or abscess. Bladder: Decompressed urinary bladder. No stones. Reproductive: Unremarkable as visualized. ABDOMEN and PELVIS: Intraperitoneal space: See above. Bones/joints: Degenerative changes of the spine. No acute fracture. No dislocation. Soft tissues: Unremarkable. Vasculature: Unremarkable. No abdominal aortic aneurysm. Lymph nodes: Unremarkable. No enlarged lymph nodes. IMPRESSION: Mild appendicitis, consisting of a distended appendix with mild surrounding inflammation. No perforation or abscess. Communications: Verify Receipt Electronically signed by: Laz Fan MD 09/19/23 20:12 PM
[2023-09-19 20:18] LABS: Pregnancy Test, Serum Negative (Negative)
[2023-09-19 20:22] LABS: Albumin Globulin Ratio 1.4 (0.9-2); Albumin Level 4.6 gm/dl (3.4-5.0); BUN Creatinine Ratio 11.1 (10-20); Bilirubin,Total 0.6 mg/dl (0.2-1.0); Calcium 9.5 mg/dl (8.6-10.3); Creatinine Clr Calc Pharmacy 130.4 ml/min; Globulin 3.3 gm/dl (2.5-4.0); Potassium 3.7 mmol/L (3.5-5.1); Total Protein 7.9 gm/dl (6.0-8.3)
[2023-09-19] MEDS: cefTRIAXone SODIUM 1,000 MG/50 ML BAG IV STA (20:38)
[2023-09-19] MEDS: metroNIDAZOLE 500 MG/100 ML BAG IV STA (21:09)
--- NOTE | 2023-09-19 21:58 | Anesthesiology Consultation ---
Date of Service September 19, 2023 Assessment & Plan Chart Review Chart Review: Acceptable Risk for Surgery and Patient NOT seen in Pre Admission Testing History Surgery Operation Date: 09/19/23 10:30 Proposed Procedures p Laparoscopic Appendectomy - Joan Rosa MD Height/Weight Height: 5 ft 1 in Weight: 121.3 kg Allergies Allergy/AdvReac Type Severity Reaction Status Date / Time latex Allergy Intermediate Rash Verified 08/16/22 14:17 Iodinated Contrast Media Allergy Rash Verified 08/16/22 14:17 clonazepam AdvReac Intermediate Irritabilit Verified 08/16/22 14:17 y prochlorperazine AdvReac Intermediate Anxious, Verified 08/16/22 14:17 [From Compazine] Irritability, aggression promethazine AdvReac Intermediate Anxious, Verified 08/16/22 14:17 irritability, aggressive Medications Home Medications Medication Instructions Recorded Confirmed Last Taken ibuprofen 200 mg tablet (Motrin IB) 200 mg PO Q6H PRN Pain 01/13/21 08/09/22 01/13/21 13:00 800 mg lamotrigine 100 mg tablet 100 mg PO HS 01/13/21 08/16/22 08/15/22 22:00 (Lamictal) albuterol sulfate 90 mcg/actuation 2 puff inhalation Q6H PRN 04/02/21 08/09/22 Unknown aerosol inhaler Shortness Of Breath Or Wheezing #18 grams olanzapine 2.5 mg tablet 2.5 mg PO HS 06/10/21 08/16/22 08/15/22 22:00 dicyclomine 20 mg tablet 20 mg PO TID #30 tabs 01/20/22 08/09/22 Unknown fluoxetine 20 mg capsule 20 mg PO QAM 01/20/22 08/16/22 08/15/22 08:00 baclofen 10 mg tablet 10 mg PO BID #60 tabs 02/10/22 08/16/22 08/02/22 22:00 diclofenac potassium 50 mg tablet 50 mg PO BID #14 tabs 02/10/22 08/16/22 08/02/22 22:00 pantoprazole 40 mg tablet,delayed 40 mg PO BID #60 tabs 04/29/22 08/16/22 08/15/22 22:00 release clonazepam 0.25 mg disintegrating 0.25 mg PO DAILY PRN Anxiety 08/09/22 08/16/22 08/15/22 22:00 tablet Past Medical History Medical History History of anesthesia reaction anxiety upon waking PONV (postoperative nausea and vomiting) Blood in stool Change in bowel habits Menorrhagia no known hx of blood transfusion PAC (premature atrial contraction) Hx Morbid obesity GERD (gastroesophageal reflux disease) + current issue IBS (irritable bowel syndrome) History of ovarian cyst PTSD (post-traumatic stress disorder) r/t of daughter Migraine Sciatica Depression Anxiety Asthma stable Past Family History Family History Sister Anemia Mother Anemia Cardiac disorder Malignant neoplasm cervix Hypertension Ovarian cancer Pure hypercholesterolemia Father Atrial fibrillation Cardiac disorder Hypertension Pure hypercholesterolemia Grandmother (Paternal) Diabetes Hypertension Pure hypercholesterolemia Other Congestive heart failure Past Surgical History Surgical History History of hysterectomy History of hysteroscopy Hysteroscopy, D&C, ablation (06/04/19): LMA#4 at [facility] [place] History of tooth extraction History of bilateral tubal ligation Laparoscopic b/l salpingectomy (04/19/19): Grade view 1, MAC#3, ETT 7.0 at [facility] [place] History of tracheostomy Trach placed during infancy r/t croup/pneumonia > removed at age 2.5 History of bronchoscopy History of esophagogastroduodenoscopy (EGD) H/O sinus surgery Hx of cholecystectomy Social History Smoking Status: Former smoker tobacco type: cigarettes Smoking cigarettes per day: 1 ppd Do You Dip or Chew Tobacco: No Hx Alcohol Use: No Hx Substance Use: No substance use type: does not use Substance Use Type Other:: 7 years ago patient reports she "used pills and herion for 2 months" Physical Exam Vital Signs Last Vital Signs Temp 37.2 C 09/19/23 16:47 Pulse 110 H 09/19/23 20:03 Resp 20 09/19/23 20:03 BP 112/64 09/19/23 20:03 Pulse Ox 98 09/19/23 20:03 O2 Del Method Room Air 09/19/23 20:03 Testing Laboratory Results 09/19/23 19:44 09/19/23 19:44 Urine Color Yellow 09/19/23 19:44 Urine Appearance Clear (Clear) 09/19/23 19:44 Urine pH 6.5 (4.5-7.5) 09/19/23 19:44 Ur Specific M[place] 1.008 (1.000-1.030) 09/19/23 19:44 Urine Protein Negative (Negative) 09/19/23 19:44 Urine Glucose (UA) Negative (Negative) 09/19/23 19:44 Urine Ketones Negative (Negative) 09/19/23 19:44 Urine Nitrite Negative (Negative) 09/19/23 19:44 Ur Leukocyte Esterase Negative (Negative) 09/19/23 19:44
[2023-09-19] MEDS ORDERED: ROCURONIUM BROMIDE 10 MG/ML 5 ML VIAL IV ONE ×2 (22:00→23:22)
[2023-09-19] MEDS ORDERED: SUCCINYLCHOLINE CHLORIDE 20 MG/ML 10 ML VIAL IV ONE (22:00)
[2023-09-19] MEDS ORDERED: fentaNYL citrate PF 100 MCG/2 ML VIAL ONE ×3 (22:00→23:16)
[2023-09-19] MEDS ORDERED: PROPOFOL IV EMULSION 10 MG/ML 20 ML VIAL IV ONE (22:00)
--- NOTE | 2023-09-19 22:10 | Surgery Consultation ---
Date of Consultation September 19, 2023 Assessment & Plan (1) Acute appendicitis: Assessment: Patient is a 38 years old female presented to ED with 2 days history right lower quadrant pain with some nausea and vomiting. WBC 18,000. CT scan- diagnosis of acute appendicitis. Plan: I recommend to do laparoscopic appendectomy, possible open. I did talk to patient about the benefit the risk and alternate of the procedure. I indicated the risks may include but not limited such as a bleeding, infection, abscess, injury other organs, incisional hernia, DVT. Patient understood. she agreed to proceed the surgery. She signed informed consent. I answered all questions. pre-op iv antibiotic. History of Present Illness Reason for Consultation: acute appendicitis Requesting Physician: DR. Gunn History of Present Illness CC: Abdominal pain HPI: Patient is 38 years old female with a past medical history of obesity , anxiety. Depression, Asthma, S/P cholecystectomy. Patient presented to ED with a 2-day history right lower quadrant pain with some nausea and vomiting. The pain located the right lower quadrant. The pain is dull. Pain is not radiated to the back. Patient taken some Tylenol and Motrin which did not relieve. Patient denies fever. No diarrhea. No dysuria. labs: WBC 18,000. Patient had a CT scan diagnosis of acute appendicitis. Allergies Allergy/AdvReac Type Severity Reaction Status Date / Time latex Allergy Intermediate Rash Verified 08/16/22 14:17 Iodinated Contrast Media Allergy Rash Verified 08/16/22 14:17 clonazepam AdvReac Intermediate Irritabilit Verified 08/16/22 14:17 y prochlorperazine AdvReac Intermediate Anxious, Verified 08/16/22 14:17 [From Compazine] Irritability, aggression promethazine AdvReac Intermediate Anxious, Verified 08/16/22 14:17 irritability, aggressive Home Medications Medication Instructions Recorded Confirmed Type ibuprofen 200 mg tablet (Motrin IB) 200 mg PO Q6H PRN Pain 01/13/21 08/09/22 History lamotrigine 100 mg tablet 100 mg PO HS 01/13/21 08/16/22 History (Lamictal) albuterol sulfate 90 mcg/actuation 2 puff inhalation Q6H PRN 04/02/21 08/09/22 Rx aerosol inhaler Shortness Of Breath Or Wheezing #18 grams olanzapine 2.5 mg tablet 2.5 mg PO HS 06/10/21 08/16/22 History dicyclomine 20 mg tablet 20 mg PO TID #30 tabs 01/20/22 08/09/22 Rx fluoxetine 20 mg capsule 20 mg PO QAM 01/20/22 08/16/22 History baclofen 10 mg tablet 10 mg PO BID #60 tabs 02/10/22 08/16/22 Rx diclofenac potassium 50 mg tablet 50 mg PO BID #14 tabs 02/10/22 08/16/22 Rx pantoprazole 40 mg tablet,delayed 40 mg PO BID #60 tabs 04/29/22 08/16/22 Rx release clonazepam 0.25 mg disintegrating 0.25 mg PO DAILY PRN Anxiety 08/09/22 08/16/22 History tablet Patient History Medical History History of anesthesia reaction anxiety upon waking PONV (postoperative nausea and vomiting) Blood in stool Change in bowel habits Menorrhagia no known hx of blood transfusion PAC (premature atrial contraction) Hx Morbid obesity GERD (gastroesophageal reflux disease) + current issue IBS (irritable bowel syndrome) History of ovarian cyst PTSD (post-traumatic stress disorder) r/t of daughter Migraine Sciatica Depression Anxiety Asthma stable Surgical History History of hysterectomy History of hysteroscopy Hysteroscopy, D&C, ablation (06/04/19): LMA#4 at [facility] [place] History of tooth extraction History of bilateral tubal ligation Laparoscopic b/l salpingectomy (04/19/19): Grade view 1, MAC#3, ETT 7.0 at [facility] [place] History of tracheostomy Trach placed during infancy r/t croup/pneumonia > removed at age 2.5 History of bronchoscopy History of esophagogastroduodenoscopy (EGD) H/O sinus surgery Hx of cholecystectomy Family History Sister Anemia Mother Anemia Cardiac disorder Malignant neoplasm cervix Hypertension Ovarian cancer Pure hypercholesterolemia Father Atrial fibrillation Cardiac disorder Hypertension Pure hypercholesterolemia Grandmother (Paternal) Diabetes Hypertension Pure hypercholesterolemia Other Congestive heart failure Social History Smoking Status: Former smoker Tobacco Type: Cigarettes Cigarettes Per Day: 1 ppd; Second Hand Exposure: Yes; Do You Dip or Chew Tobacco: No; Hx Alcohol Use: No Hx Substance Use: No Preferred Language: Bengali Communication Ability: Effective Visual Impairment: No Limitations Hearing Ability: Normal Shoe Cementer Required: No Beliefs That Will Affect Care: None marital status: Single Current Living Situation: Family Current Living Situation Comment: lives with 3 children, a step daughter and boyfriend current occupational status: unemployed Feels Safe at Home: Yes Assistive Devices: None Review of Systems Constitutional: Obesity Eyes: as per Subjective / HPI Respiratory: as per Subjective / HPI asthma Cardiovascular: as per Subjective / HPI Gastrointestinal: diarrhea, S/P lap angelica Genitourinary: as per Subjective / HPI Musculoskeletal: as per Subjective / HPI Neurologic: as per Subjective / HPI Psychiatric: as per Subjective / HPI Endocrine: as per Subjective / HPI Hematologic / Lymphatic: as per Subjective / HPI Physical Exam 2 Constitutional: WD/WN, vitals as above mild distress, obesity Eyes: PERRL, conjunctivae normal, anicteric sclerae Neck: trachea midline, no thyromegaly Respiratory: normal respiratory effort, lungs clear to auscultation Cardiovascular: RRR, no murmur, no edema Gastrointestinal (Abdomen): soft, tenderness at RLQ, rebound pain +, no distend, BS +. umbilical incision scar. Musculoskeletal: no cyanosis or clubbing, extremities motor strength 5/5 Neurologic: patellar DTR's 2+ bilat, sensation intact Psychiatric: A+Ox3, euthymic affect Results & Data Vital Signs (Past 12 Hours) Vital Signs Temp Pulse Pulse Resp BP BP Pulse Ox 09/19/23 20:03 98 09/19/23 20:03 110 H 20 112/64 97 09/19/23 16:47 37.2 C 109 H 20 140/92 96 O2 Del Method 09/19/23 20:03 09/19/23 20:03 Room Air 09/19/23 16:47 Room Air Laboratory Results Lab Results 09/19/23 Range/Units 19:44 WBC 18.81 H (4.8-10.8) K/ul RBC 4.73 (4.20-5.40) M/uL Hgb 13.9 (12.0-16.0) g/dl Hct 40.8 (37.0-47.0) % MCV 86.3 (80.0-100.0) fL MCH 29.4 (25.0-34.0) pg MCHC 34.1 (32.0-36.0) g/dL RDW Std Deviation 44.1 (36.4-46.3) fL RDW Coeff of Natalie 14.0 (11.5-14.5) % Plt Count 312 (130-400) K/uL MPV 9.0 L (9.4-12.4) fL Immature Gran % (Auto) 0.4 % Neut % (Auto) 79.5 % Lymph % (Auto) 14.1 % [place] % (Auto) 5.7 % Eos % (Auto) 0.0 % Baso % (Auto) 0.3 % Neut # (Auto) 14.94 H (1.40-6.50) K/uL Lymph # (Auto) 2.66 (1.20-3.40) K/uL [place] # (Auto) 1.08 H (0.11-0.59) K/uL Eos # (Auto) 0.00 (0.00-0.50) K/uL Baso # (Auto) 0.05 (0.00-0.20) K/uL Immature Gran # (Auto) 0.08 (0.01-0.20) K/uL Sodium 135 L (136-145) mmol/L Potassium 3.7 (3.5-5.1) mmol/L Chloride 102 (98-107) mmol/L Carbon Dioxide 21 (21-32) mmol/L Anion Gap 12 H (3-11) BUN 8 (6-23) mg/dl Creatinine 0.72 (0.6-1.2) mg/dl Est Cr Clr Drug Dosing 130.4 ml/min Est GFR ( Amer) 124.0 ml/min Est GFR (Non-Af Amer) 107.0 ml/min BUN/Creatinine Ratio 11.1 (10-20) Glucose 116 H (70-99(Fasting)) mg/dl Lactate 2.5 H* (0.4-2.0) mmol/L Calcium 9.5 (8.6-10.3) mg/dl Total Bilirubin 0.6 (0.2-1.0) mg/dl AST 15 (13-39) U/L ALT 32 (7-52) U/L Alkaline Phosphatase 65 (34-104) U/L Total Protein 7.9 (6.0-8.3) gm/dl Albumin 4.6 (3.4-5.0) gm/dl Globulin 3.3 (2.5-4.0) gm/dl Albumin/Globulin Ratio 1.4 (0.9-2) Lipase 12 (11-82) U/L HCG, Qual Negative (Negative) Urine Color Yellow Urine Appearance Clear (Clear) Urine pH 6.5 (4.5-7.5) Ur Specific [place] 1.008 (1.000-1.030) Urine Protein Negative (Negative) Urine Glucose (UA) Negative (Negative) Urine Ketones Negative (Negative) Urine Blood Negative (Negative) Urine Nitrite Negative (Negative) Urine Bilirubin Negative (Negative) Urine Urobilinogen Negative (Negative) Ur Leukocyte Esterase Negative (Negative) Diagnostic Findings ADDENDUM ADDENDUM: 09/19/23 20:23 Verify Receipt Verified receipt with Missy MCINTOSH on 09/19 20:23 (-05:00) Electronically signed by: Laz Fan MD Electronically signed by: Laz Fan MD 09/19/23 20:12 PM ADDENDUM END Exam(s): CT ABDOMEN + PELVIS Without Contrast EXAM: CT Abdomen and Pelvis Without Intravenous Contrast CLINICAL HISTORY: Reason for exam: abdominal pain; vomiting. TECHNIQUE: Axial computed tomography images of the abdomen and pelvis without intravenous contrast. CTDI is 27.94 mGy and DLP is 1426.82 mGy-cm. Automated exposure control was utilized for the study. A dose lowering technique was utilized adhering to the principles of ALARA. COMPARISON: No relevant prior studies available. FINDINGS: Lung bases: Unremarkable. No mass. No consolidation. ABDOMEN: Liver: Hepatic steatosis. Gallbladder and bile ducts: See below. Pancreas: Unremarkable. No ductal dilation. Spleen: Calcified splenic granulomata. Cholecystectomy. Adrenals: Unremarkable. No mass. Kidneys and ureters: Unremarkable. No hydronephrosis or nephrolithiasis. Stomach and bowel: Diverticulosis, without acute diverticulitis. No bowel obstruction. No free air. PELVIS: Appendix: Mild appendicitis, consisting of a distended appendix with mild surrounding inflammation. No perforation or abscess. Bladder: Decompressed urinary bladder. No stones. Reproductive: Unremarkable as visualized. ABDOMEN and PELVIS: Intraperitoneal space: See above. Bones/joints: Degenerative changes of the spine. No acute fracture. No dislocation. Soft tissues: Unremarkable. Vasculature: Unremarkable. No abdominal aortic aneurysm. Lymph nodes: Unremarkable. No enlarged lymph nodes. IMPRESSION: Mild appendicitis, consisting of a distended appendix with mild surrounding inflammation. No perforation or abscess. Communications: Verify Receipt Electronically signed by: Laz Fan MD 09/19/23 20:12 PM
--- NOTE | 2023-09-19 22:16 | History & Physical Bridge Note ---
Date of Service September 19, 2023 History & Physical Bridge Note I have examined the patient, reviewed the History & Physical and in the interval since the performance of the History & Physical I have noted the following changes of clinical significance: no changes noted
[2023-09-19] MEDS ORDERED: HYDROmorphone INJ 2 MG/ML SYR/VIAL IV PRN (22:30)
[2023-09-19] MEDS ORDERED: ePHEDrine sulfate 50 MG/ML AMP IV PRN (22:30)
[2023-09-19] MEDS ORDERED: fentaNYL citrate PF 100 MCG/2 ML VIAL IV PRN (22:30)
[2023-09-19] MEDS ORDERED: DROPERIDOL 5 MG/2 ML VIAL IV PRN (22:30)
[2023-09-19] MEDS ORDERED: ONDANSETRON INJ 2 MG/ML 2 ML VIAL IV PRN (22:30)
[2023-09-19] MEDS ORDERED: ATROPINE SULFATE 0.1 MG/ML 10ML SYR IV PRN (22:30)
[2023-09-19] MEDS: cefOXitin 2,000 MG in DEXTROSE 5 % MINI-B 50 ML IV STA (22:58)
[2023-09-19] MEDS ORDERED: PHENYLEPHRINE 100MCG/ML 10ML SYR IV ONE (23:07)
[2023-09-19] MEDS ORDERED: ONDANSETRON INJ 2 MG/ML 2 ML VIAL ONE (23:07)
[2023-09-19] MEDS ORDERED: DEXAMETHASONE SOD INJ 4 MG/ML VIAL ONE (23:07)
[2023-09-19] MEDS ORDERED: SUGAMMADEX SODIUM 200 MG/2 ML VIAL IV ONE ×2 (23:09→23:14)
[2023-09-19] MEDS: VANCOMYCIN HCL 1000MG/20ML VIAL ONE (23:44)
[2023-09-19] MEDS: BACITRACIN OINT 14 GM TUBE ONE (23:58)
[2023-09-20] MEDS: LIDOCAINE 1% LOCAL 20 ML VIAL ONE (00:01)
[2023-09-20] MEDS: BUPIVACAINE 0.5 % 5 MG/1 ML MPF 30ML VIAL ONE (00:01)
--- NOTE | 2023-09-20 00:11 | Emergency Department Note ---
History of Present Illness General Chief Complaint: Abdominal Pain Stated Complaint: ABDOMINAL/BACK PAIN, VOMITING Time Seen by Provider: 09/19/23 20:24 History of Present Illness Provider Complaint: abdominal pain Onset (ago): 2 day(s) Pain Consistency: intermittent Location: RLQ Severity: moderate Maximum Pain Intensity: 8 Current Pain Intensity: 8 Quality: + stabbing and + sharp Relieved By: + nothing Exacerbated By: + nothing Context: no foreign travel, no possible food poisoning, no sick contacts, no recent antibiotic use, no recent surgery/procedure or no recent injury Associated Symptoms: + nausea and + vomiting; no diarrhea, no fever, no chills, no constipation, no dysuria, no hematemesis, no hematochezia, no melena, no hematuria, no syncope, no headache, no neck pain, no back pain, no chest pain and no breathing difficulty Related Data Last Menstrual Period: hyster Gestational Age Based on EDC: 40 Wks 2 D Home Medications Medication Instructions Recorded Confirmed Type ibuprofen 200 mg tablet (Motrin IB) 200 mg PO Q6H PRN Pain 01/13/21 08/09/22 History lamotrigine 100 mg tablet 100 mg PO HS 01/13/21 08/16/22 History (Lamictal) albuterol sulfate 90 mcg/actuation 2 puff inhalation Q6H PRN 04/02/21 08/09/22 Rx aerosol inhaler Shortness Of Breath Or Wheezing #18 grams olanzapine 2.5 mg tablet 2.5 mg PO HS 06/10/21 08/16/22 History dicyclomine 20 mg tablet 20 mg PO TID #30 tabs 01/20/22 08/09/22 Rx fluoxetine 20 mg capsule 20 mg PO QAM 01/20/22 08/16/22 History baclofen 10 mg tablet 10 mg PO BID #60 tabs 02/10/22 08/16/22 Rx diclofenac potassium 50 mg tablet 50 mg PO BID #14 tabs 02/10/22 08/16/22 Rx pantoprazole 40 mg tablet,delayed 40 mg PO BID #60 tabs 04/29/22 08/16/22 Rx release clonazepam 0.25 mg disintegrating 0.25 mg PO DAILY PRN Anxiety 08/09/22 08/16/22 History tablet Allergies Allergy/AdvReac Type Severity Reaction Status Date / Time latex Allergy Intermediate Rash Verified 08/16/22 14:17 Iodinated Contrast Media Allergy Rash Verified 08/16/22 14:17 clonazepam AdvReac Intermediate Irritabilit Verified 08/16/22 14:17 y prochlorperazine AdvReac Intermediate Anxious, Verified 08/16/22 14:17 [From Compazine] Irritability, aggression promethazine AdvReac Intermediate Anxious, Verified 08/16/22 14:17 irritability, aggressive Past Med/Surg History Medical History History of anesthesia reaction anxiety upon waking PONV (postoperative nausea and vomiting) Blood in stool Change in bowel habits Menorrhagia no known hx of blood transfusion PAC (premature atrial contraction) Hx Morbid obesity GERD (gastroesophageal reflux disease) + current issue IBS (irritable bowel syndrome) History of ovarian cyst PTSD (post-traumatic stress disorder) r/t of daughter Migraine Sciatica Depression Anxiety Asthma stable Surgical History History of hysterectomy History of hysteroscopy Hysteroscopy, D&C, ablation (06/04/19): LMA#4 at [facility] [place] History of tooth extraction History of bilateral tubal ligation Laparoscopic b/l salpingectomy (04/19/19): Grade view 1, MAC#3, ETT 7.0 at [facility] [place] History of tracheostomy Trach placed during infancy r/t croup/pneumonia > removed at age 2.5 History of bronchoscopy History of esophagogastroduodenoscopy (EGD) H/O sinus surgery Hx of cholecystectomy Family History Sister Anemia Mother Anemia Cardiac disorder Malignant neoplasm cervix Hypertension Ovarian cancer Pure hypercholesterolemia Father Atrial fibrillation Cardiac disorder Hypertension Pure hypercholesterolemia Grandmother (Paternal) Diabetes Hypertension Pure hypercholesterolemia Other Congestive heart failure Social History Smoking Status: Former smoker Tobacco Type: Cigarettes Cigarettes Per Day: 1 ppd; Second Hand Exposure: Yes; Do You Dip or Chew Tobacco: No; Hx Alcohol Use: No Hx Substance Use: No Preferred Language: Romanian Communication Ability: Effective Visual Impairment: No Limitations Hearing Ability: Normal Box Car Loader Required: No Beliefs That Will Affect Care: None marital status: Single Current Living Situation: Family Current Living Situation Comment: lives with 3 children, a step daughter and boyfriend current occupational status: unemployed Feels Safe at Home: Yes Assistive Devices: None Physical Exam 2 Vital Signs: Vital Signs - 24 hr 09/19/23 16:47 09/19/23 20:03 09/19/23 20:03 Temperature 37.2 C Temperature Source Temporal Artery Sc an Pulse Rate 109 H Pulse Rate [Finger ] 110 H Respiratory Rate 20 20 Respiratory Effort / Characteristics Non-Labored Sponta neous Non-Labored Sponta neous Respiratory Depth Normal Normal Respiratory Patter n Regular Regular Blood Pressure 140/92 Blood Pressure [Ri ght Arm] 112/64 Blood Pressure Juliette n 108 Blood Pressure Juliette n [Right Arm] 80 Pulse Oximetry 96 97 98 Oxygen Delivery Me thod Room Air Room Air Sepsis Recent Feve r Within 48 Hours No Sepsis New/Unexpla ined Change in Men reynaldo Status No Sepsis Action Take n by Nursing No Action Required Physical Exam: Physical Exam GENERAL: She is oriented to person, place, and time. She appears well-developed and well-nourished. She does not appear distressed. HENT: Exam performed. -Head: Normocephalic and atraumatic. -Right Ear: External ear normal. No mastoid erythema -Left Ear: External ear normal. No mastoid erythema -Mouth/Throat: The oropharynx is clear and moist. No trismus in the jaw. No dental abscesses or uvula swelling. No oropharyngeal exudate or tonsillar abscesses. EYES: Conjunctivae and EOM are normal.Right eye exhibits no discharge. Left eye exhibits no discharge. No scleral icterus. NECK: Normal range of motion. Neck supple. No JVD present. No tracheal deviation and normal range of motion present. CV: Normal rate, regular rhythm, normal heart sounds and intact distal pulses. There is no peripheral edema. Palpable radial pulses bue. PULM/CHEST: Effort normal and breath sounds normal. No respiratory distress. No stridor. She has no wheezes. She has no rales. -Chest Wall: She exhibits no tenderness. ABD: The abdomen is soft. Obese. Bowel sounds are normal. She has no distension. No mass is present. There is tenderness to palpation of the right lower quadrant. There is no rebound, guarding is present, no Michele's sign. MUSC/SKEL: Normal range of motion. There is no peripheral edema, tenderness or deformity. NEURO: Motor and sensation grossly intact. SKIN: Skin is warm and dry. She is not diaphoretic. PSYCH: She has a normal mood and affect. Behavior is normal. Judgment and thought content normal. Course Course 2023: The patient was evaluated in room A12. A complete history and physical exam was performed Administered Medications Discontinued Medications Bacitracin (Bacitracin Oint 14 Gm Tube) Confirm Administered Dose 45 appln .ROUTE .STK-MED ONE Stop: 09/19/23 22:00 Last Admin: 09/19/23 23:58 Dose: 45 appln Documented By: CECILIA Bupivacaine HCl (Bupivacaine 0.5 % 5 Mg/1 Ml Mpf 30ml Vial) Confirm Administered Dose 30 ml .ROUTE .STK-MED ONE Stop: 09/19/23 22:00 Last Admin: 09/20/23 00:01 Dose: 7.5 ml Documented By: CECILIA Sodium Chloride (Nss) 1,000 mls @ 999 mls/hr IV .Q1H1M ONE Stop: 09/19/23 17:50 Last Infusion: 09/19/23 20:38 Dose: Infused Documented By: Admin: 09/19/23 19:38 Dose: 999 mls/hr Documented By: NANCY Ceftriaxone Sodium (Rocephin) 1,000 mg in 50 mls @ 100 mls/hr IV NOW STA Stop: 09/19/23 20:53 Last Infusion: 09/19/23 21:10 Dose: Infused Documented By: Admin: 09/19/23 20:38 Dose: 100 mls/hr Documented By: LUANA Metronidazole (Flagyl) 500 mg in 100 mls @ 100 mls/hr IV NOW STA Stop: 09/19/23 21:23 Last Admin: 09/19/23 21:09 Dose: 100 mls/hr Documented By: LUANA Cefoxitin Sodium 2,000 mg/ (Dextrose) 50 mls @ 100 mls/hr IV NOW STA; Protocol Stop: 09/19/23 22:45 Last Admin: 09/19/23 22:58 Dose: 100 mls/hr Documented By: [id number] Ketorolac Tromethamine (Ketorolac Tromethamine 15 Mg/Ml Vial) 15 mg IV NOW ONE Stop: 09/19/23 16:51 Last Admin: 09/19/23 19:37 Dose: Not Given Documented By: IDZeke Ketorolac Tromethamine (Ketorolac Tromethamine 15 Mg/Ml Vial) Confirm Administered Dose 15 mg .ROUTE .STK-MED ONE Stop: 09/19/23 19:22 Last Admin: 09/19/23 19:37 Dose: 15 mg Documented By: NANCY Lidocaine HCl (Lidocaine 1% Local 20 Ml Vial) Confirm Administered Dose 20 ml .ROUTE .STK-MED ONE Stop: 09/19/23 22:01 Last Admin: 09/20/23 00:01 Dose: 7.5 ml Documented By: CECILIA Vancomycin HCl (Vancomycin Hcl 1000mg/20ml Vial) Confirm Administered Dose 50 mg .ROUTE .STK-MED ONE Stop: 09/19/23 23:37 Last Admin: 09/19/23 23:44 Dose: 50 mg Documented By: CECILIA Medical Decision Making Laboratory Data Attestation: I reviewed the patient's lab results. 09/19/23 19:44 09/19/23 19:44 Lab Results 09/19/23 Range/Units 19:44 WBC 18.81 H (4.8-10.8) K/ul RBC 4.73 (4.20-5.40) M/uL Hgb 13.9 (12.0-16.0) g/dl Hct 40.8 (37.0-47.0) % MCV 86.3 (80.0-100.0) fL MCH 29.4 (25.0-34.0) pg MCHC 34.1 (32.0-36.0) g/dL RDW Std Deviation 44.1 (36.4-46.3) fL RDW Coeff of Natalie 14.0 (11.5-14.5) % Plt Count 312 (130-400) K/uL MPV 9.0 L (9.4-12.4) fL Immature Gran % (Auto) 0.4 % Neut % (Auto) 79.5 % Lymph % (Auto) 14.1 % [place] % (Auto) 5.7 % Eos % (Auto) 0.0 % Baso % (Auto) 0.3 % Neut # (Auto) 14.94 H (1.40-6.50) K/uL Lymph # (Auto) 2.66 (1.20-3.40) K/uL [place] # (Auto) 1.08 H (0.11-0.59) K/uL Eos # (Auto) 0.00 (0.00-0.50) K/uL Baso # (Auto) 0.05 (0.00-0.20) K/uL Immature Gran # (Auto) 0.08 (0.01-0.20) K/uL Sodium 135 L (136-145) mmol/L Potassium 3.7 (3.5-5.1) mmol/L Chloride 102 (98-107) mmol/L Carbon Dioxide 21 (21-32) mmol/L Anion Gap 12 H (3-11) BUN 8 (6-23) mg/dl Creatinine 0.72 (0.6-1.2) mg/dl Est Cr Clr Drug Dosing 130.4 ml/min Est GFR ( Amer) 124.0 ml/min Est GFR (Non-Af Amer) 107.0 ml/min BUN/Creatinine Ratio 11.1 (10-20) Glucose 116 H (70-99(Fasting)) mg/dl Lactate 2.5 H* (0.4-2.0) mmol/L Calcium 9.5 (8.6-10.3) mg/dl Total Bilirubin 0.6 (0.2-1.0) mg/dl AST 15 (13-39) U/L ALT 32 (7-52) U/L Alkaline Phosphatase 65 (34-104) U/L Total Protein 7.9 (6.0-8.3) gm/dl Albumin 4.6 (3.4-5.0) gm/dl Globulin 3.3 (2.5-4.0) gm/dl Albumin/Globulin Ratio 1.4 (0.9-2) Lipase 12 (11-82) U/L HCG, Qual Negative (Negative) Urine Color Yellow Urine Appearance Clear (Clear) Urine pH 6.5 (4.5-7.5) Ur Specific [place] 1.008 (1.000-1.030) Urine Protein Negative (Negative) Urine Glucose (UA) Negative (Negative) Urine Ketones Negative (Negative) Urine Blood Negative (Negative) Urine Nitrite Negative (Negative) Urine Bilirubin Negative (Negative) Urine Urobilinogen Negative (Negative) Ur Leukocyte Esterase Negative (Negative) Imaging Data Radiologist's Impression: Abdomen/Pelvis CT 09/19/23 16:24 CR Exam(s): CT ABDOMEN + PELVIS Without Contrast EXAM: CT Abdomen and Pelvis Without Intravenous Contrast CLINICAL HISTORY: Reason for exam: abdominal pain; vomiting. TECHNIQUE: Axial computed tomography images of the abdomen and pelvis without intravenous contrast. CTDI is 27.94 mGy and DLP is 1426.82 mGy-cm. Automated exposure control was utilized for the study. A dose lowering technique was utilized adhering to the principles of ALARA. COMPARISON: No relevant prior studies available. FINDINGS: Lung bases: Unremarkable. No mass. No consolidation. ABDOMEN: Liver: Hepatic steatosis. Gallbladder and bile ducts: See below. Pancreas: Unremarkable. No ductal dilation. Spleen: Calcified splenic granulomata. Cholecystectomy. Adrenals: Unremarkable. No mass. Kidneys and ureters: Unremarkable. No hydronephrosis or nephrolithiasis. Stomach and bowel: Diverticulosis, without acute diverticulitis. No bowel obstruction. No free air. PELVIS: Appendix: Mild appendicitis, consisting of a distended appendix with mild surrounding inflammation. No perforation or abscess. Bladder: Decompressed urinary bladder. No stones. Reproductive: Unremarkable as visualized. ABDOMEN and PELVIS: Intraperitoneal space: See above. Bones/joints: Degenerative changes of the spine. No acute fracture. No dislocation. Soft tissues: Unremarkable. Vasculature: Unremarkable. No abdominal aortic aneurysm. Lymph nodes: Unremarkable. No enlarged lymph nodes. IMPRESSION: Mild appendicitis, consisting of a distended appendix with mild surrounding inflammation. No perforation or abscess. Communications: Verify Receipt Electronically signed by: Laz Fan MD 09/19/23 20:12 PM MDM Narrative Cardiac monitoring: An order was placed for continuous cardiac monitoring. The monitor shows a rate of 100 with sinus rhythm interpreted by me Patient was seen during a time of extreme volume and extreme acuity in the emergency department. Nursing triage protocols were initiated and labs were drawn by protocol in the triage area. Labs show leukocytosis of 18. Lactic acid 2.5. CT shows acute appendicitis. Patient treated with IV antibiotics. Discussed with Dr. Rosa on-call general surgery who will evaluate the patient for appendicitis. Impression & Plan Acute appendicitis Discharge Plan Visit Data Chief Complaint: Abdominal Pain Stated Complaint: ABDOMINAL/BACK PAIN, VOMITING ED Provider: Pro Gunn Discharge Problem: Acute appendicitis Patient Disposition: Admitted As Inpatient Discharge Instructions Interventions: ED Discharge Assessment Last Done: 09/19/23 22:17 Discharge Problem: Acute appendicitis Qualifiers: Acute appendicitis type: unspecified acute appendicitis type Qualified Code(s): K35.80 - Unspecified acute appendicitis
--- NOTE | 2023-09-20 00:13 | Post Operative Brief Note ---
Immediate Post Op Note v1 Date of Surgery September 20, 2023 Pre & Post Diagnosis Operation Date: 09/19/23 10:30 Pre-Op Diagnosis: Acute appendicitis. Post-Op Diagnosis: Acute appendicitis. I identified the patient and participated in the time-out.: Yes Procedure Operation Date: 09/19/23 10:30 Actual Procedures p Laparoscopic Appendectomy - Joan Rosa MD Surgeon Joan Rosa MD Conveyor Man surgical supply assistant Estimated Blood Loss 10 Findings Consistent with Post-Op Diagnosis gangrene and perforated acute appendicitis Fluids 1000ml Specimens appendix Drains Patel Catheter (Inserted without issue by Calderon Cheng RN. Dark cloudy urine noted. ) and Jose G-Wilson Drain (10mm judy drain abdomen) Anesthesia Type General Complications none Disposition Accompanied Patient To Recovery: Yes
--- NOTE | 2023-09-20 00:43 | Operative Report ---
Post Operative Report Pre & Post Diagnosis Operation Date: 09/19/23 10:30 Pre-Op Diagnosis: Acute appendicitis. Post-Op Diagnosis: Gangrene and perforated acute appendicitis. I identified the patient and participated in the time-out.: Yes Procedure Operation Date: 09/19/23 10:30 Actual Procedures p Laparoscopic Appendectomy - Joan Rosa MD Surgeon Joan Rosa MD Rehabilitation Program Coordinator surgical services tech Estimated Blood Loss 10 Findings Consistent with Post-Op Diagnosis Gangrene and perforated acute appendicitis Fluids 1000ml Specimens appendix Drains 10 mm VALENCIA at RLQ area Complications none Indications Patient is a 38 years old female presented to ED with a 2-days history right lower quadrant pain with some nausea and vomiting. WBC 18,000. CT scan diagnosis of acute appendicitis. I recommend to do a laparoscopy appendectomy possible open. I did talk to patient about the benefit the risk and alternate of the procedure. I indicated the risks may include but not limited such as a bleeding, infection, abscess, injury other organs, incisional hernia, and DVT. she Understood. she agreed to proceed the surgery. patient signed informed consent. I answers all questions. Description of Procedure After we identified patient to verify procedure. We brought patient to the OR. Put the patient on the supine position on the OR table. Patient received a SCD on bilateral legs to prevent DVT. Also patient received 2 gram cefoxitin IV for prophylactic antibiotic. Patient received general anesthesia without difficulty. pt had Patel catheter insertion to drainage urine. The abdomen was propped and dropped in routine sterile fashion. After timeout. I injections of local anesthesia by using 1% lidocaine mixed with 0.5% Marcaine just above the umbilical area. The make a small incisions as above umbilical, open fascia and peritoneum under direct vision. put The Marmolejo trocar in. Connected to CO2 to create pneumoperitoneum, the flow rate is 6 L/min. Pressure no more than 14 mmHg. Once get nice pneumoperitoneum. Put a scopy in to take look around the abdomen. Significant inflammation on the right lower quadrant area. then we put other two 5 mm trocars on the left lower quadrant area. We used a grasper to to hold cecum area. there are some purulent fluid at RLQ area, We found the patient had Gangrene and perforated acute appendicitis with significant inflammation on appendix, once confirm diagnosis acute appendicitis with perforation. We mobilized the appendix by using a harmonic to take down the appendiceal. I used the 45 mm Endo PRATIBHA staple transection on the base of appendix. With double identified the base of appendix. Recheck and no active bleeding or leak from staplers. We remove appendix through the catheter bag. then re-inserted a Marmolejo trocar IN and connected to CO2 to create pneumoperitoneum again. we used 1000 mg ancomycin in 1000ml warm normal saline to flush whole abdomen until the fluid is clear. Hemostat is obtained. one [address] at RLQ area from 5mm trocar site out. I used 3-0 nylon fixes VALENCIA at skin. We removed all trocars under direct vision no active bleeding from trocar site. Pneumoperitoneum was released. Close umbilical incision fascia layer by using 0 Vicryl [id number] x2. Closed subcutaneous layer by using 2-0 Vicryl interrupted. Close skin by using 4-0 Vicryl. Close another 5 mm trocar site the skin only by use of 4-0 Vicryl. Put the dressing on. Remove Patel catheter. Patient tolerated procedure well. All instrument needle sponge count correct x2 in the case. Patient was transferred to recovery room in stable condition. Specimen sent to pathology. After procedure I did talk to patient about the OR finding and the procedure we did. patient understood. I attest to the content of the Intraoperative Record and any orders documented therein. Any exceptions are noted below.
--- NOTE | 2023-09-20 00:54 | Anesthesiology Progress Note ---
Date of Service September 20, 2023 Anesthesia Post Procedure Vital Signs Vital Signs: Temp Pulse Pulse Resp BP BP Pulse Ox 09/20/23 00:47 36.8 C 106 H 17 164/91 H 95 09/20/23 00:42 37.0 C 104 H 18 165/94 H 94 09/20/23 00:37 37.0 C 97 H 18 164/88 H 92 09/20/23 00:32 36.5 C 101 H 8 L 160/93 H 91 09/19/23 20:03 98 09/19/23 20:03 110 H 20 112/64 97 09/19/23 16:47 37.2 C 109 H 20 140/92 96 O2 Del Method O2 Flow Rate 09/20/23 00:47 Nasal Cannula 4 09/20/23 00:42 Nasal Cannula 4 09/20/23 00:37 Nasal Cannula 4 09/20/23 00:32 Nasal Cannula 6 09/19/23 20:03 09/19/23 20:03 Room Air 09/19/23 16:47 Room Air Pain Intensity Abdomen: Pain Intensity: 3 Transfer of Care Handoff Completed per policy Notes Mental Status: alert / awake / arousable and participated in evaluation Patient Amnestic to Procedure: Yes Nausea / Vomiting: adequately controlled Pain: adequately controlled Airway Patency, RR, SpO2: stable & adequate BP & HR: stable & adequate Hydration State: stable & adequate Anesthetic Complications: no major complications apparent and Pt Satisfied with anesthetic care
[2023-09-20] MEDS ORDERED: ALBUTEROL HFA 8 GM INHALER INH PRN (01:16)
[2023-09-20] MEDS: HYDROmorphone INJ 1 MG/ML SYRINGE IV PRN (02:14)
[2023-09-20] MEDS: LACTATED RINGER'S 1,000 ML IV SCH (02:15)
[2023-09-20] MEDS: PIPERACILLIN/TAZOBACTAM 4.5 GM in DEXTROSE 5% MINI-B 100 ML IV ONE (02:18)
[2023-09-20] MEDS: ALBUT/IPRATROP 3MG/0.5MG NEB 3 ML VIAL NEB STA (02:54)
[2023-09-20] MEDS: oxyCODONE/ACETAMINOPHEN 5mg/325mg TAB PO PRN (05:20)
[2023-09-20 06:17] LABS: Basophils # (auto) 0.03 K/uL (0.00-0.20); Basophils % (auto) 0.2 %; Hemoglobin 12.4 g/dl (12.0-16.0); Immature Granulocytes # (auto) 0.08 K/uL (0.01-0.20); Immature Granulocytes % (auto) 0.5 %; Lymphocytes # (auto) 1.35 K/uL (1.20-3.40); Mean Corpuscular Hemoglobin 28.6 pg (25.0-34.0); Mean Corpuscular Hgb Conc 31.8 g/dL (32.0-36.0); Mean Corpuscular Volume 90.1 fL (80.0-100.0); Mean Platelet Volume 9.1 fL (9.4-12.4); Monocytes # (auto) 0.42 K/uL (0.11-0.59); Monocytes % (auto) 2.8 %; Neutrophils # (auto) 13.05 K/uL (1.40-6.50); Neutrophils % (auto) 87.5 %; Platelet Count 275 K/uL (130-400); RDW Standard Deviation 46.4 fL (36.4-46.3); Red Blood Count 4.33 M/uL (4.20-5.40); White Blood Count 14.93 K/ul (4.8-10.8)
[2023-09-20 06:26] LABS: Albumin Globulin Ratio 1.5 (0.9-2); Albumin Level 4.1 gm/dl (3.4-5.0); BUN Creatinine Ratio 11.7 (10-20); Bilirubin,Total 0.5 mg/dl (0.2-1.0); Calcium 8.5 mg/dl (8.6-10.3); Creatinine Clr Calc Pharmacy 121.9 ml/min; Est GFR (African American) 114.3 ml/min; Est GFR (Non-African American) 98.6 ml/min; Globulin 2.7 gm/dl (2.5-4.0); Total Protein 6.8 gm/dl (6.0-8.3)
--- OUTSIDE RECORDS SUMMARY | 2023-09-20 06:31 | External Medical Summary | Summary of Care ---
Author Name Unknown Organization [facility] Address [address] [place] [address] Phone [phone] Care Team Providers Care Bakery Helper Name Role Phone Jessica TYLER MD, Don Horner Primary Care Pr ovider Reason for Referral * Evaluate & Treat - Unlimited Visits (Within 10 days (routine)) - Pending Review Specialty Diagnoses / Procedures Referred By Contact Referred To Contact GI NUTRITION/IM / Gastroenterology Diagnoses Obesity, BMI not known Raquel Reveles DO [address] [place] [address] Referral ID Status Reason Start Date Expiration Date Visits Requested Visits Authorized [id number] Pending Review Specialty Services Required 08/29/[phone] Question Answer Referral Priority Within 10 days (routine) Where should this appointment be scheduled? [facility] For what condition is the patient being seen? Surgery for Weight Loss Comments Bariatrics - gastric sleeve discussion Encounter Details Date Type Department Care Team (Late st Contact Info) Description 08/29/2023 Orders Only [facility] [place] [address] [place] [address] Ext *DO NOT REMOVE THIS DEPARTMENT* SHIRA BETANCOURT [phone] Request, External Referral Obesity, BMI not known* Allergies Active Allergy Reactions Criticality Noted Date Comments Latex Rash 12/16/2009 documented as of this encounter (statuses as of 08/29/2023) Medications Medication Sig Dispensed Refills Start Date End Date Status ACETAMINOPHEN 500 MG PO TABS as needed 0 Active ALPRAZolam (XANAX) 0.5 MG Tablet 0 03/06/2020 Active sertraline (ZOLOFT) 100 MG Tablet Take 100 mg by mouth daily. 0 02/27/2020 Active promethazine (PHENERGAN) 25 MG TabletIndications:Naus ea and vomiting, intractability of vomiting not specified, unspecified vomiting type Take 1 Tab by mouth every 6 hours as needed for Nausea. or vomiting 12 Tab 0 03/13/2020 Active Additional Information Patient not taking.Reported on 04/02/2021 lamoTRIgine 100 MG Oral Tablet (LaMICtal) Take 100 mg by mouth daily. 0 Active predniSONE 10 MG Oral Tablet (Deltasone)Indications :Moderate persistent asthma with exacerbation Take 5 tabs for 2 days, 4 tabs for 2 days, 3 tabs for 2 days, 2 tabs for 2 days 1 tab for 2 days 30 Tab 0 04/02/2021 Active Additional Information Patient not taking.Reported on 07/30/2021 Fluticasone Propionate 50 MCG/ACT Nasal SuspensionIndications: Moderate persistent asthma with exacerbation Administer 2 Sprays into each nostril daily. 1 g 0 04/02/2021 Active Azithromycin 250 MG Oral Tablet (Zithromax Z-Alex)Indications:Mode rate persistent asthma with exacerbation Take two tablets by mouth on first day, then 1 tablet daily until gone 6 Tab 0 04/02/2021 Active Additional Information Patient not taking.Reported on 07/30/2021 Flovent HFA 220 MCG/ACT Inhalation Aerosol (fluticasone)Indicatio ns:Moderate persistent asthma with exacerbation Inhale 2 Puffs by mouth 2 times a day. 1 g 0 04/02/2021 Active metFORMIN HCl 500 MG Oral Tablet (Glucophage) 0 06/30/2021 Active documented as of this encounter (statuses as of 08/29/2023) Active Problems Problem Noted Date Diagnosed Date Other diseases of mediastinum, not elsewhere cla ssified 05/06/2011 Abnormal findings on screening 010 ADVANCE DIRECTIVE INFORMATION 12/16/2009 Overview: No, Advance Directive brochure given to patient. VARIANTS OF MIGRAINE WITH INTRACTABLE MIGRAINE, SO STATED 07/04/2006 Attention deficit hyperactivity disorder (ADHD) Overview: ICD-10 update of inactive term Oppositional disorder Asthma with severity to be determined Overview: ICD-10 update of inactive term DRUG ABUSE NEC-UNSPEC documented as of this encounter (statuses as of 08/29/2023) Immunizations Name Administration Dates Next Due Seasonal Influenza, PF, 6 M & above, IM , (FluLaval or Fluzone) 09/17/2021 documented as of this encounter Social History Tobacco Use Types Packs/Day Years Used Date Smoking Tobacco: Every Day Cigarettes 1 1 Cigars Smokeless Tobacco: Never Alcohol Use Standard Drinks/Week Comments No 0 (1 standard drink = 0.6 oz pur e alcohol) Sex and Gender Information Value Date Recorded Sex Assigned at Not on file Gender Identity Not on file Sexual Orientation Not on file Job Start Date Occupation Industry Not on file Not on file Not on file documented as of this encounter Plan of Treatment Scheduled Referrals Name Type Priority Associated Diagnoses Orde r Schedule GI NUTRITION REFERRAL OP Referral Within 10 days (routine) Obesity, BMI not known Ordered: 08/29/2023 Health Maintenance Due Date Last Done Comments DISCUSS TOBACCO CESSATION (REFER TO SMARTSET #3291) 1986 Hepatitis B (1 of 3 - 3-dose series) 1986 COVID-19 Vaccine (#1) 1986 Pneumococcal Vaccine: Pediatrics (0 to 5 Years) and At-Risk Patients (6 to 64 Years) (1 - PCV) 01/08/1992 DTaP,Tdap,and Td Vaccines (5 - Tdap) 1997 03/15/1991, 03/27/1990, 10/08/1988, Additional history exists Depression Screening 1998 HIV Screening 2001 Hepatitis C Screening 01/08/2004 Influenza Vaccine (FLU shot) (#1) 2023 09/17/2021, 05/29/1999, 05/13/1998, Additional history exists GARDASIL-HPV IMMUNIZATION SERIES Aged Out No longer eligible based on patient's age to complete this topic MENINGOCOCCAL (MENACTRA/MENVEO) Aged Out No longer eligible based on patient's age to complete this topic documented as of this encounter Medical Devices Not on filedocumented as of this encounter Visit Diagnoses Diagnosis Obesity, BMI not known- Primary Obesity, unspecified documented in this encounter Care Teams Bakery Helper Relationship Specialty Start Date End Date Don Lopez III, MD PCP - General Internal Medicine 12/01/18 documented as of this encounter
--- OUTSIDE RECORDS SUMMARY | 2023-09-20 06:32 | External Medical Summary ---
Author Name Unknown Address Unknown Organization [id number][place] [place] [address] [facility] [id number] Laboratory Report Ordering Provider Test Date Status CONOR HINSON 05/25/2023 10:53:00 Final Observation Date Value Abnormality Reference (Units ) Status HbA1C 05/25/2023 10:53:00 5.6 4.0-5.6 (% ) Final The use of HbA1c to monitor glycemic status is based on normal hemoglobin and HbA composition. This test should not be used in patients with abnormal hemoglobin that affects the half life of the red blood cell or the in vivo glycation rates. Glucose, estimated average 05/25/2023 10:53:00 114 <126 (mg/dL) Final Performing Location [facility] [place] [address] [facility] [address]
[2023-09-20] MEDS: DICYCLOMINE HCL 20 MG TAB PO SCH (07:45)
[2023-09-20] MEDS: PIPERACILLIN/TAZOBACTAM 4.5 GM in DEXTROSE 5% MINI-B 100 ML IV SCH (07:45)
[2023-09-20] MEDS: DICLOFENAC SODIUM 25 MG TABDR PO SCH (07:46)
[2023-09-20] MEDS: BACLOFEN 10 MG TAB PO SCH (07:46)
[2023-09-20] MEDS: PANTOprazole 40 MG TAB PO SCH (07:46)
[2023-09-20] MEDS: FLUoxetine HCL 20 MG CAP PO SCH (07:46)
--- NOTE | 2023-09-20 11:10 | Surgery Progress Note ---
Date of Service September 20, 2023 Assessment & Plan (1) Acute appendicitis: Plan: perforation; con't IV abx advance diet possibly home in AM on po abx Admission and Anticipated Discharge Date Admission Date: September 20, 2023 Subjective taking po OK ambulating OK Review of Systems Constitutional: no fever and no chills Cardiovascular: no chest pain Gastrointestinal: + abdominal pain; no nausea, no vomiting and no change in bowel habits Genitourinary: no dysuria Neurologic: no localized weakness and no generalized weakness Physical Exam Constitutional: WD/WN, vitals as above Respiratory: normal respiratory effort, lungs clear to auscultation Cardiovascular: RRR, no murmur, no edema Gastrointestinal (Abdomen): Inspection/Auscultation: abdomen normal to inspection, + abdomen distended and normal bowel sounds Percussion/Palpation: + abdomen tender and abdomen soft; no guarding and abdomen not rigid judy drain- serosanguinous Musculoskeletal: Head/Neck/Chest: normocephalic and head atraumatic Results & Data Vital Signs (Past 12 Hours) Vital Signs Temp Pulse Resp BP BP Pulse Ox O2 Del Method 09/20/23 07:29 36.6 C 95 H 18 116/68 90 Room Air 09/20/23 03:33 36.7 C 96 H 20 146/61 H 95 Room Air 09/20/23 03:13 Room Air 09/20/23 02:29 37 C 84 20 151/65 H 94 Room Air 09/20/23 01:25 36.7 C 96 H 18 156/71 H 95 Room Air 09/20/23 01:05 36.8 C 92 H 20 156/76 H 94 Nasal Cannula 09/20/23 00:52 36.6 C 99 H 16 189/86 H 94 Nasal Cannula 09/20/23 00:47 36.8 C 106 H 17 164/91 H 95 Nasal Cannula 09/20/23 00:42 37.0 C 104 H 18 165/94 H 94 Nasal Cannula 09/20/23 00:37 37.0 C 97 H 18 164/88 H 92 Nasal Cannula 09/20/23 00:32 36.5 C 101 H 8 L 160/93 H 91 Nasal Cannula O2 Flow Rate 09/20/23 07:29 09/20/23 03:33 09/20/23 03:13 09/20/23 02:29 09/20/23 01:25 09/20/23 01:05 2 09/20/23 00:52 2 09/20/23 00:47 4 09/20/23 00:42 4 09/20/23 00:37 4 09/20/23 00:32 6 (1) Acute appendicitis Acute appendicitis type: unspecified acute appendicitis type Qualified Code(s): K35.80 - Unspecified acute appendicitis
[2023-09-20] MEDS: ONDANSETRON INJ 2 MG/ML 2 ML VIAL IV PRN (12:08)
[2023-09-20] MEDS: clonazePAM 0.25 MG TAB PO PRN (14:03)
[2023-09-20] MEDS: OLANZAPINE 2.5 MG TAB PO SCH (21:26)
[2023-09-20] MEDS: lamoTRIgine 100 MG TAB PO SCH (21:26)
--- NOTE | 2023-09-21 10:05 | Surgery Progress Note ---
Date of Service September 21, 2023 Assessment & Plan (1) Acute appendicitis: Plan: con't IV abx adjust pain regimen labs in AM VALENCIA serosangionous Admission and Anticipated Discharge Date Admission Date: September 20, 2023 Subjective having nausea and vomiting pain not well controlled serosanguinous Review of Systems Constitutional: no fever and no chills Respiratory: no cough and no dyspnea Cardiovascular: no chest pain Gastrointestinal: + abdominal pain, + nausea and + vomitin g; no diarrhea/loose stools Genitourinary: no dysuria Musculoskeletal: no back pain Neurologic: no localized weakness and no generalized weakness Psychiatric: no behavioral changes Physical Exam Constitutional: WD/WN, vitals as above Respiratory: normal respiratory effort, lungs clear to auscultation Cardiovascular: RRR, no murmur, no edema Gastrointestinal (Abdomen): Inspection/Auscultation: abdomen normal to inspection and normal bowel sounds; abdomen not distended Percussion/Palpation: + abdomen tender and abdomen soft; no guarding and abdomen not rigid Musculoskeletal: Head/Neck/Chest: normocephalic and head atraumatic Results & Data Vital Signs (Past 12 Hours) Vital Signs Temp Pulse Resp BP Pulse Ox O2 Del Method 09/21/23 09:34 Room Air 09/21/23 08:21 36.6 C 83 18 121/74 93 Room Air 09/20/23 23:00 36.9 C 85 18 105/72 96 Room Air (1) Acute appendicitis Acute appendicitis type: unspecified acute appendicitis type Qualified Code(s): K35.80 - Unspecified acute appendicitis
[2023-09-21] MEDS: ACETAMINOPHEN 325 MG TAB PO PRN (17:22)
[2023-09-21] MEDS: MoRPHine SULFATE 2 MG/ML CARP IV PRN (18:14)
[2023-09-21] MEDS: MoRPHine SULFATE 4 MG/ML 1 ML CARP\\VIAL IV PRN (22:37)
[2023-09-22 06:15] LABS: Basophils # (auto) 0.02 K/uL (0.00-0.20); Basophils % (auto) 0.3 %; Eosinophils # (auto) 0.01 K/uL (0.00-0.50); Eosinophils % (auto) 0.1 %; Hematocrit (blood only) 38.8 % (37.0-47.0); Hemoglobin 12.1 g/dl (12.0-16.0); Immature Granulocytes # (auto) 0.05 K/uL (0.01-0.20); Immature Granulocytes % (auto) 0.6 %; Lymphocytes % (auto) 40.3 %; Mean Corpuscular Hemoglobin 28.5 pg (25.0-34.0); Mean Corpuscular Hgb Conc 31.2 g/dL (32.0-36.0); Mean Corpuscular Volume 91.3 fL (80.0-100.0); Mean Platelet Volume 9.1 fL (9.4-12.4); Monocytes # (auto) 0.38 K/uL (0.11-0.59); Monocytes % (auto) 4.9 %; Neutrophils # (auto) 4.14 K/uL (1.40-6.50); Neutrophils % (auto) 53.8 %; Platelet Count 271 K/uL (130-400); RDW Coefficient of Variation 14.3 % (11.5-14.5); RDW Standard Deviation 47.8 fL (36.4-46.3); Red Blood Count 4.25 M/uL (4.20-5.40)
--- NOTE | 2023-09-22 11:51 | Discharge Summary ---
Date of Service September 22, 2023 Admission HPI Per Admitting Provider Patient is 38 years old female with a past medical history of obesity , anxiety. Depression, Asthma, S/P cholecystectomy. Patient presented to ED with a 2-day history right lower quadrant pain with some nausea and vomiting. The pain located the right lower quadrant. The pain is dull. Pain is not radiated to the back. Patient taken some Tylenol and Motrin which did not relieve. Patient denies fever. No diarrhea. No dysuria. labs: WBC 18,000. Patient had a CT scan diagnosis of acute appendicitis. Admission Exam Per Admitting Provider WD/WN, vitals as above mild distress, obesity Eyes: PERRL, conjunctivae normal, anicteric sclerae Neck: trachea midline, no thyromegaly Respiratory: normal respiratory effort, lungs clear to auscultation Cardiovascular: RRR, no murmur, no edema Gastrointestinal (Abdomen): soft, tenderness at RLQ, rebound pain +, no distend, BS +. umbilical incision scar. Musculoskeletal: no cyanosis or clubbing, extremities motor strength 5/5 Neurologic: patellar DTR's 2+ bilat, sensation intact Psychiatric: A+Ox3, euthymic affect Principal Diagnosis appendicitis Discharge Data Allergies Allergy/AdvReac Type Severity Reaction Status Date / Time latex Allergy Intermediate Rash Verified 09/21/23 10:12 Iodinated Contrast Media Allergy Rash Verified 09/21/23 10:12 clonazepam AdvReac Intermediate Irritabilit Verified 09/21/23 10:12 y prochlorperazine AdvReac Intermediate Anxious, Verified 09/21/23 10:12 [From Compazine] Irritability, aggression promethazine AdvReac Intermediate Anxious, Verified 09/21/23 10:12 irritability, aggressive Consultations 09/19/23 21:41 ED Decision to Admit Stat Procedures Performed Operation Date: 09/19/23 10:30 Actual Procedures p Laparoscopic Appendectomy - Joan Rosa MD Ordered Studies 09/19/23 16:24 CT abd pelvis wo con Stat Hospital Course (1) Acute appendicitis: Patiented admitted through ED with acute appendicitis. She underwent lap appy. She has maintained on IV abx and her diet and pain regimen was advanced. Her drain was removed POD# 3 and she was discharged to home. Total Time Total Time Spent Total Time Spent (In Minutes): 30 Discharge Plan Discharge Items Patient Disposition: Home - Self-Care Reason For Visit: VOMITING, LOWER ABDOMINAL PAIN Discharge Diagnosis: appendicitis Activity: Per Instructions section Lifting: No more than 25 pounds Bathing: No limitations Bathing Comment: shower Sexual Activity: When tolerated Exercise/Sports: Wait until after follow-up appointment Weightbearing: Full weightbearing Non-emergency contact: Surgeon Call non-emergency contact if: your pain is concerning for you, your temperature is above 101.5 and your wound pain has increased Follow-up/Referrals: Raquel Reveles, [Primary Care Provider] - Diet: Regular Addtl Attending Provider Instructions: appt with Dr Rosa in 2 weeks Pending Studies at Discharge: No Stand-Alone Forms: [employer], Smoking Cessation Medications and DC Order Prescriptions: New oxycodone-acetaminophen [Percocet] 5-325 mg tablet 1 tab PO Q6H PRN (Reason: pain) Qty: 14 0RF amoxicillin-pot clavulanate [Augmentin] 500-125 mg tablet 1 tab PO BID Qty: 14 0RF Continued ibuprofen [Motrin IB] 200 mg Tablet 200 mg PO Q6H PRN (Reason: Pain) fluoxetine 40 mg capsule 40 mg PO QAM clonazepam 0.5 mg tablet 0.5 - 1 mg PO DAILY PRN (Reason: Anxiety) acetaminophen 500 mg Tablet 500 mg PO Q6H PRN (Reason: PAIN/FEVER) propranolol 10 mg tablet See Rx Instructions .ROUTE .COMPLEX Rx Instructions: Take 20mg in the morning, 10mg in the afternoon and 20mg by mouth at bedtime nicotine 21 mg/24 hr patch 24 hour 21 mg transdermal DAILY olanzapine 20 mg tablet 20 mg PO HS lamotrigine 100 mg tablet 100 mg PO HS topiramate 50 mg tablet See Rx Instructions .ROUTE .COMPLEX Rx Instructions: Take 50mg by mouth in the morning and 100mg by mouth at bedtime Discharge Orders: Discharge Order (Routine); Ordered 09/22/23 Ordered By: Aftab Black Admission Data Admit Date/Time: 09/20/23 00:16 Attending Provider: Joan Rosa Admit Provider: Joan Rosa Primary Care Provider: Raquel Reveles Other Providers: Joan Rosa
== END 2023-09-22 14:59 | disposition home or self-care (01) | DRG 398 ==
LOC: ED 16:02 → OR 22:17 → 3E 09-20 00:16